=== PATIENT | male | born 1960 | race Hispanic/Latino ===

== ENCOUNTER 2021-12-28 19:55 | Inpatient (IN) | payer OTHER, SELFPAY ==
[2021-12-28 20:48] LABS: #Eosinphils 0.2 thou/uL (0.0-0.7); #Monocytes 0.8 thou/uL (0.11-0.59); %Basophils 0.6 % (0.0-1.0); %Eosinophils 3.8 % (0.0-10.0); %Lymphocytes 16.4 % (21.0-51.0); %Monocytes 13.5 % (0.0-10.0); %Neutrophils 65.7 % (42.0-75.0); Hemoglobin 5.1 g/dL (14.0-18.0); Mean Corpuscular HGB CONC 30.1 g/dL (32.0-36.0); Mean Corpuscular Hemoglobin 26.5 pg (27.0-31.0); Mean Corpuscular Volume 87.9 fL (78.0-98.0); Mean Platelet Volume 6.4 fL (7.4-10.4); Platelet Count 140 thou/uL (130-400); Red Blood Cell (RBC) Count 1.92 mill/uL (4.70-6.10); White Blood Cell (WBC) Count 6.1 thou/uL (4.8-10.8)
[2021-12-28 21:03] LABS: ALT (SGPT) 12 U/L (8-55); AST (SGOT) 18 U/L (5-34); Albumin 3.6 g/dL (3.4-4.8); Alkaline Phosphatase 85 U/L (40-110); Anion Gap 13 mmol/L (10-20); BUN (Urea Nitrogen) 49 mg/dL (8.4-25.7); Bilirubin, Total 0.6 mg/dL (0.2-1.2); Calc. Creatinine Clearance 0 mL/min (70-130); Calcium 8.4 mg/dL (7.8-10.44); Carbon Dioxide 19 mmol/L (23-31); Chloride 108 mmol/L (98-107); Globulin 3.6 g/dL (2.4-3.5); Glucose 118 mg/dL (80-115); Protein, Total 7.2 g/dL (5.8-8.1); Sodium 133 mmol/L (136-145)
[2021-12-28 21:13] LABS: Potassium 6.9 mmol/L (3.5-5.1)
[2021-12-28 21:56] LABS: Iron 20 ug/dL (65-175); Iron Binding Capacity, Total 451 mcg/dL (261-462)
[2021-12-28 21:57] LABS: INR-International Normal Ratio 2.6; PTT 44.5 sec (22.9-36.1); Prothrombin Time 28.3 sec (12.0-14.7)
[2021-12-28] MEDS ORDERED: Insulin Regular 300 UNITS/3 ML VIAL ONE ×2 (22:14→22:19)
[2021-12-28] MEDS ORDERED: Sodium Bicarb 50 MEQ/50 ML Abboject 8.4% SYRINGE ONE (22:14)
[2021-12-28] MEDS ORDERED: Calcium Chloride 1 GM/10 ML Abboject SYRINGE ONE (22:14)
[2021-12-28 22:24] LABS: Bacteria/HPF None Seen HPF (None Seen); Bilirubin Negative (Negative); Blood, Urine 2+ (Negative); Clarity Clear (Clear); Glucose, Urine (Dipstick) Normal (Negative); Ketone, Urine Negative (Negative); Leukocyte Negative Leu/uL (Negative); Nitrite Negative (Negative); Protein, Urine (Dipstick) Negative (Neg-Trace); RBC/HPF 0-3 HPF (0-3); Specific Gravity, Urine 1.009 (1.002-1.036); Squamous Epithelial None Seen HPF (0-3); Urobilinogen Normal mg/dL (Less than 2); WBC/HPF 0-3 HPF (0-3)
[2021-12-28] MEDS ORDERED: Dextrose 50% Abboject 50 ML SYRINGE SLOW IVP SCH (22:30)
[2021-12-28] MEDS ORDERED: Ondansetron PF 4 MG/2 ML Vial IVP PRN (22:45)
[2021-12-28] MEDS ORDERED: Ondansetron ODT 4 MG TAB SL PRN (22:45)
[2021-12-28] MEDS ORDERED: HumaLOG 300 UNITS/3 ML VIAL SC PRN (22:58)
[2021-12-28] MEDS ORDERED: Acetaminophen 325 MG TAB PO PRN (22:58)
[2021-12-28] MEDS ORDERED: Dextrose 5% in Water 1,000 ML IV PRN (22:58)
[2021-12-28] MEDS ORDERED: Dextrose 50% Abboject 50 ML SYRINGE SLOW IVP PRN (22:58)
[2021-12-28] MEDS ORDERED: Acetaminophen 650 MG Suppository PR PRN (22:58)
[2021-12-28] MEDS ORDERED: Furosemide 40 MG/4 ML VIAL SLOW IVP SCH (23:00)
[2021-12-29 00:12] VITALS: BMI 42.9
[2021-12-29] MEDS: Sodium Chloride 0.9% 1,000 ML IV SCH ×2 (00:29→11:02)
[2021-12-29] MEDS ORDERED: Pantoprazole 40 MG VIAL IVP SCH (02:00)
[2021-12-29] MEDS ORDERED: Furosemide 40 MG/4 ML VIAL SLOW IVP SCH ×3 (03:30→15:00)
[2021-12-29 05:17] LABS: #Eosinphils 0.1 thou/uL (0.0-0.7); #Monocytes 0.7 thou/uL (0.11-0.59); #Neutrophils 3.4 thou/uL (1.40-6.50); %Basophils 0.7 % (0.0-1.0); %Eosinophils 2.7 % (0.0-10.0); %Lymphocytes 18.3 % (21.0-51.0); %Monocytes 12.5 % (0.0-10.0); %Neutrophils 65.8 % (42.0-75.0); Hemoglobin 6.2 g/dL (14.0-18.0); Mean Corpuscular HGB CONC 30.7 g/dL (32.0-36.0); Mean Corpuscular Hemoglobin 27.8 pg (27.0-31.0); Mean Corpuscular Volume 90.5 fL (78.0-98.0); Mean Platelet Volume 6.1 fL (7.4-10.4); Platelet Count 129 thou/uL (130-400); RBC Distribution Width 16.9 % (11.5-14.5); Red Blood Cell (RBC) Count 2.24 mill/uL (4.70-6.10); White Blood Cell (WBC) Count 5.2 thou/uL (4.8-10.8)
[2021-12-29 05:39] LABS: Anion Gap 12 mmol/L (10-20); BUN (Urea Nitrogen) 44 mg/dL (8.4-25.7); Calc. Creatinine Clearance 82 mL/min (70-130); Calcium 9.3 mg/dL (7.8-10.44); Carbon Dioxide 21 mmol/L (23-31); Chloride 108 mmol/L (98-107); Glucose 121 mg/dL (80-115); Magnesium 2.2 mg/dL (1.6-2.6); Potassium 5.9 mmol/L (3.5-5.1); Sodium 135 mmol/L (136-145)
[2021-12-29 09:30] LABS: Hemoglobin 5.9 g/dL (14.0-18.0)
[2021-12-29 09:48] LABS: Reticulocyte Count 6.2 % (0.5-1.5)
[2021-12-29] MEDS ORDERED: Sodium Bicarbonate 150 MEQ in Dextrose 5% in Water 1,000 ML IV SCH ×3 (10:00→15:00)
[2021-12-29] MEDS: Pantoprazole 40 MG VIAL IVP SCH ×2 (10:06→21:18)
[2021-12-29 12:07] LABS: Glucose 122 mg/dL (80-115)
[2021-12-29] MEDS ORDERED: LOKELMA 10 GM PACKET PO SCH (15:00)
[2021-12-29 15:24] LABS: Hemoglobin 6.9 g/dL (14.0-18.0)
[2021-12-29 15:50] LABS: Troponin I 0.011 ng/mL (< 0.028)
[2021-12-29] MEDS ORDERED: Metoprolol Tartrate 5 MG/5 ML VIAL IVP PRN (20:16)
[2021-12-29 20:41] LABS: Glucose 261 mg/dL (80-115)
[2021-12-29 21:04] LABS: Anion Gap 14 mmol/L (10-20); BUN (Urea Nitrogen) 34 mg/dL (8.4-25.7); Calc. Creatinine Clearance 83 mL/min (70-130); Calcium 9.2 mg/dL (7.8-10.44); Carbon Dioxide 24 mmol/L (23-31); Chloride 104 mmol/L (98-107); Glucose 264 mg/dL (80-115); Potassium 4.7 mmol/L (3.5-5.1); Sodium 137 mmol/L (136-145)
[2021-12-30 04:55] LABS: #Eosinphils 0.1 thou/uL (0.0-0.7); #Lymphocytes 0.7 thou/uL (1.20-3.40); #Monocytes 0.8 thou/uL (0.11-0.59); #Neutrophils 3.8 thou/uL (1.40-6.50); %Basophils 0.6 % (0.0-1.0); %Eosinophils 2.2 % (0.0-10.0); %Lymphocytes 12.7 % (21.0-51.0); %Monocytes 14.1 % (0.0-10.0); %Neutrophils 70.4 % (42.0-75.0); Hemoglobin 7.5 g/dL (14.0-18.0); Mean Corpuscular HGB CONC 32.2 g/dL (32.0-36.0); Mean Corpuscular Hemoglobin 29.4 pg (27.0-31.0); Mean Corpuscular Volume 91.2 fL (78.0-98.0); Mean Platelet Volume 6.7 fL (7.4-10.4); Platelet Count 122 thou/uL (130-400); RBC Distribution Width 16.8 % (11.5-14.5); Red Blood Cell (RBC) Count 2.56 mill/uL (4.70-6.10); White Blood Cell (WBC) Count 5.4 thou/uL (4.8-10.8)
[2021-12-30 04:58] LABS: INR-International Normal Ratio 1.2; Prothrombin Time 15.7 sec (12.0-14.7)
[2021-12-30 05:22] LABS: ALT (SGPT) 11 U/L (8-55); AST (SGOT) 16 U/L (5-34); Albumin 3.2 g/dL (3.4-4.8); Alkaline Phosphatase 71 U/L (40-110); Anion Gap 13 mmol/L (10-20); BUN (Urea Nitrogen) 32 mg/dL (8.4-25.7); Bilirubin, Total 1.6 mg/dL (0.2-1.2); Calc. Creatinine Clearance 97 mL/min (70-130); Calcium 8.7 mg/dL (7.8-10.44); Carbon Dioxide 25 mmol/L (23-31); Chloride 105 mmol/L (98-107); Globulin 3.2 g/dL (2.4-3.5); Glucose 133 mg/dL (80-115); Magnesium 1.7 mg/dL (1.6-2.6); Potassium 4.4 mmol/L (3.5-5.1); Protein, Total 6.4 g/dL (5.8-8.1); Sodium 139 mmol/L (136-145)
[2021-12-30] MEDS: Furosemide 40 MG/4 ML VIAL SLOW IVP SCH ×2 (06:04→15:07)
[2021-12-30] MEDS ORDERED: Electrolyte Replacement Protocol 1 EACH FS SCH (08:45)
[2021-12-30] MEDS ORDERED: Electrolyte Replacement Protocol FS PRN (08:45)
[2021-12-30] MEDS ORDERED: Metoprolol Tartrate 25 MG TAB PO SCH (09:00)
[2021-12-30] MEDS ORDERED: Pantoprazole 40 MG VIAL IVP SCH (09:00)
[2021-12-30] MEDS: Multivit, Therapeutic 1 TAB PO SCH (10:15)
[2021-12-30] MEDS: Pantoprazole 40 MG VIAL IVP SCH ×2 (10:15→21:04)
[2021-12-30] MEDS: Metoprolol Tartrate 50 MG TAB PO SCH ×2 (10:15→21:04)
[2021-12-30] MEDS: Folic Acid 1 MG TAB PO SCH (10:15)
[2021-12-30] MEDS: pyridOXINE 50 MG (B6) TAB PO SCH (10:15)
[2021-12-30] MEDS: Thiamine 100 MG TAB PO SCH (10:16)
[2021-12-30] MEDS ORDERED: Magnesium 2 GM/50 ML(in water) 2 GM in Premix Bag 1 BAG IVPB SCH (11:00)
[2021-12-30] MEDS: HumaLOG 300 UNITS/3 ML VIAL SC PRN (15:11)
[2021-12-30 16:55] LABS: Hemoglobin 8.1 g/dL (14.0-18.0)
[2021-12-30] MEDS ORDERED: Diltiazem 125 MG in Sodium Chloride 0.9% 100 ML IVPB SCH (18:30)
[2021-12-31 05:44] LABS: #Eosinphils 0.2 thou/uL (0.0-0.7); #Lymphocytes 0.8 thou/uL (1.20-3.40); #Monocytes 0.7 thou/uL (0.11-0.59); #Neutrophils 3.3 thou/uL (1.40-6.50); %Basophils 0.3 % (0.0-1.0); %Eosinophils 3.6 % (0.0-10.0); %Monocytes 13.4 % (0.0-10.0); %Neutrophils 65.8 % (42.0-75.0); Hemoglobin 7.9 g/dL (14.0-18.0); Mean Corpuscular HGB CONC 31.6 g/dL (32.0-36.0); Mean Corpuscular Hemoglobin 29.2 pg (27.0-31.0); Mean Corpuscular Volume 92.5 fL (78.0-98.0); Mean Platelet Volume 6.8 fL (7.4-10.4); Platelet Count 110 thou/uL (130-400); RBC Distribution Width 16.8 % (11.5-14.5); Red Blood Cell (RBC) Count 2.71 mill/uL (4.70-6.10); White Blood Cell (WBC) Count 4.9 thou/uL (4.8-10.8)
[2021-12-31 05:50] LABS: ALT (SGPT) 12 U/L (8-55); AST (SGOT) 16 U/L (5-34); Albumin 3.3 g/dL (3.4-4.8); Alkaline Phosphatase 72 U/L (40-110); Anion Gap 12 mmol/L (10-20); BUN (Urea Nitrogen) 22 mg/dL (8.4-25.7); Bilirubin, Total 1.3 mg/dL (0.2-1.2); Calc. Creatinine Clearance 109 mL/min (70-130); Calcium 9.4 mg/dL (7.8-10.44); Carbon Dioxide 30 mmol/L (23-31); Chloride 104 mmol/L (98-107); Globulin 3.3 g/dL (2.4-3.5); Glucose 139 mg/dL (80-115); Magnesium 1.8 mg/dL (1.6-2.6); Phosphorus 4.1 mg/dL (2.3-4.7); Potassium 3.9 mmol/L (3.5-5.1); Protein, Total 6.6 g/dL (5.8-8.1); Sodium 142 mmol/L (136-145)
[2021-12-31] MEDS ORDERED: Magnesium 2 GM/50 ML(in water) 2 GM in Premix Bag 1 BAG IVPB SCH (08:00)
[2021-12-31] MEDS ORDERED: Furosemide 40 MG/4 ML VIAL SLOW IVP SCH (09:00)
[2021-12-31] MEDS: Multivit, Therapeutic 1 TAB PO SCH (09:12)
[2021-12-31] MEDS: Pantoprazole 40 MG VIAL IVP SCH ×2 (09:12→21:09)
[2021-12-31] MEDS: pyridOXINE 50 MG (B6) TAB PO SCH (09:12)
[2021-12-31] MEDS: Folic Acid 1 MG TAB PO SCH (09:12)
[2021-12-31] MEDS: Metoprolol Tartrate 50 MG TAB PO SCH ×2 (09:12→21:09)
[2021-12-31] MEDS: Thiamine 100 MG TAB PO SCH (09:13)
[2021-12-31] MEDS ORDERED: Senokot S 8.6-50 MG TAB PO SCH (09:45)
[2021-12-31] MEDS ORDERED: Polyethylene Glycol 3350 17 GM Packet PO SCH (09:45)
[2021-12-31] MEDS: HumaLOG 300 UNITS/3 ML VIAL SC PRN ×2 (11:25→18:22)
[2021-12-31] MEDS: Senokot S 8.6-50 MG TAB PO SCH (21:09)
[2022-01-01 05:02] LABS: #Eosinphils 0.2 thou/uL (0.0-0.7); #Lymphocytes 1.1 thou/uL (1.20-3.40); #Monocytes 0.7 thou/uL (0.11-0.59); #Neutrophils 6.2 thou/uL (1.40-6.50); %Basophils 0.3 % (0.0-1.0); %Eosinophils 2.4 % (0.0-10.0); %Lymphocytes 13.2 % (21.0-51.0); %Monocytes 8.7 % (0.0-10.0); %Neutrophils 75.4 % (42.0-75.0); Hemoglobin 7.8 g/dL (14.0-18.0); Mean Corpuscular HGB CONC 30.8 g/dL (32.0-36.0); Mean Corpuscular Hemoglobin 28.2 pg (27.0-31.0); Mean Corpuscular Volume 91.6 fL (78.0-98.0); Mean Platelet Volume 6.7 fL (7.4-10.4); Platelet Count 114 thou/uL (130-400); RBC Distribution Width 16.3 % (11.5-14.5); Red Blood Cell (RBC) Count 2.75 mill/uL (4.70-6.10); White Blood Cell (WBC) Count 8.3 thou/uL (4.8-10.8)
[2022-01-01 05:15] LABS: ALT (SGPT) 11 U/L (8-55); AST (SGOT) 24 U/L (5-34); Albumin 3.3 g/dL (3.4-4.8); Alkaline Phosphatase 64 U/L (40-110); Anion Gap 13 mmol/L (10-20); BUN (Urea Nitrogen) 26 mg/dL (8.4-25.7); Bilirubin, Total 1.5 mg/dL (0.2-1.2); Calc. Creatinine Clearance 82 mL/min (70-130); Calcium 8.8 mg/dL (7.8-10.44); Carbon Dioxide 29 mmol/L (23-31); Chloride 103 mmol/L (98-107); Globulin 3.4 g/dL (2.4-3.5); Glucose 134 mg/dL (80-115); Magnesium 2.1 mg/dL (1.6-2.6); Potassium 3.9 mmol/L (3.5-5.1); Protein, Total 6.7 g/dL (5.8-8.1); Sodium 141 mmol/L (136-145)
[2022-01-01] MEDS: pyridOXINE 50 MG (B6) TAB PO SCH (08:34)
[2022-01-01] MEDS: Metoprolol Tartrate 50 MG TAB PO SCH ×2 (08:34→21:01)
[2022-01-01] MEDS: Senokot S 8.6-50 MG TAB PO SCH ×2 (08:34→21:01)
[2022-01-01] MEDS: Thiamine 100 MG TAB PO SCH (08:34)
[2022-01-01] MEDS: Multivit, Therapeutic 1 TAB PO SCH (08:34)
[2022-01-01] MEDS: Folic Acid 1 MG TAB PO SCH (08:34)
[2022-01-01] MEDS: Pantoprazole 40 MG VIAL IVP SCH ×2 (08:35→21:00)
[2022-01-01] MEDS: Polyethylene Glycol 3350 17 GM Packet PO SCH (08:35)
[2022-01-01] MEDS: HumaLOG 300 UNITS/3 ML VIAL SC PRN (11:50)
[2022-01-01 14:14] LABS: Anion Gap 14 mmol/L (10-20); BUN (Urea Nitrogen) 28 mg/dL (8.4-25.7); Calc. Creatinine Clearance 71 mL/min (70-130); Calcium 8.7 mg/dL (7.8-10.44); Carbon Dioxide 28 mmol/L (23-31); Chloride 100 mmol/L (98-107); Glucose 227 mg/dL (80-115); Potassium 3.7 mmol/L (3.5-5.1); Sodium 138 mmol/L (136-145)
[2022-01-01] MEDS ORDERED: GoLYTELY 4,000 ml Bottle PO SCH (18:00)
[2022-01-01] MEDS ORDERED: Ondansetron PF 4 MG/2 ML Vial IVP PRN (23:36)
[2022-01-01] MEDS ORDERED: Ondansetron ODT 4 MG TAB PO PRN (23:36)
[2022-01-02 04:59] LABS: #Eosinphils 0.2 thou/uL (0.0-0.7); #Lymphocytes 0.6 thou/uL (1.20-3.40); #Monocytes 0.6 thou/uL (0.11-0.59); #Neutrophils 6.9 thou/uL (1.40-6.50); %Basophils 0.2 % (0.0-1.0); %Eosinophils 2.3 % (0.0-10.0); %Lymphocytes 6.8 % (21.0-51.0); %Monocytes 6.8 % (0.0-10.0); %Neutrophils 83.8 % (42.0-75.0); Mean Corpuscular Hemoglobin 28.2 pg (27.0-31.0); Mean Corpuscular Volume 90.8 fL (78.0-98.0); Mean Platelet Volume 6.9 fL (7.4-10.4); Platelet Count 90 thou/uL (130-400); RBC Distribution Width 16.3 % (11.5-14.5); Red Blood Cell (RBC) Count 2.83 mill/uL (4.70-6.10); White Blood Cell (WBC) Count 8.2 thou/uL (4.8-10.8)
[2022-01-02 05:21] LABS: ALT (SGPT) 11 U/L (8-55); AST (SGOT) 16 U/L (5-34); Albumin 3.3 g/dL (3.4-4.8); Alkaline Phosphatase 61 U/L (40-110); Anion Gap 13 mmol/L (10-20); BUN (Urea Nitrogen) 30 mg/dL (8.4-25.7); Bilirubin, Total 1.3 mg/dL (0.2-1.2); Calc. Creatinine Clearance 72 mL/min (70-130); Calcium 8.5 mg/dL (7.8-10.44); Carbon Dioxide 29 mmol/L (23-31); Chloride 100 mmol/L (98-107); Globulin 3.3 g/dL (2.4-3.5); Glucose 163 mg/dL (80-115); Magnesium 2.1 mg/dL (1.6-2.6); Potassium 3.8 mmol/L (3.5-5.1); Protein, Total 6.6 g/dL (5.8-8.1); Sodium 138 mmol/L (136-145)
[2022-01-02 05:38] LABS: HBCM Index 0.06 S/CO (0-0.79); HBSAB Concentration Less than 8.00 mIU/mL; HBSAg Index 0.32 S/CO (0-0.99); Hep A IgM AB Non-Reactive (NonReactive); Hep A IgM S/CO 0.25 S/CO (0-0.79); Hep B Surf AB Non-Reactive (NonReactive); Hep B Surf Ag Non-Reactive S/CO (NonReactive); Hep C IgG Ab Non-Reactive (NonReactive); Hep C Index 0.14 S/CO (0-0.79); Hepatitis B Core IgM Abs Non-Reactive (NonReactive)
[2022-01-02] MEDS: Pantoprazole 40 MG VIAL IVP SCH ×2 (10:22→20:26)
[2022-01-02] MEDS: Metoprolol Tartrate 50 MG TAB PO SCH ×2 (10:22→20:25)
[2022-01-02] MEDS: Senokot S 8.6-50 MG TAB PO SCH (11:00)
[2022-01-02] MEDS: Polyethylene Glycol 3350 17 GM Packet PO SCH (11:26)
[2022-01-02 12:21] LABS: ANA Symphony (Qualitative) Negative (Negative); ANA Symphony (Quantitative) 0.4 Ratio (< 0.7 Negative); EliA Vaculitis New Method **** NEW METHOD ****; Mitochondrial Ab 1.8 U/mL (<4 Negative); dsDNA IgG Antibody 7.6 IU/mL (<10 Negative)
[2022-01-02] MEDS: Multivit, Therapeutic 1 TAB PO SCH (12:58)
[2022-01-02] MEDS: pyridOXINE 50 MG (B6) TAB PO SCH (12:59)
[2022-01-02] MEDS: Thiamine 100 MG TAB PO SCH (12:59)
[2022-01-02] MEDS: Folic Acid 1 MG TAB PO SCH (12:59)
[2022-01-02] MEDS ORDERED: Polyethylene Glycol 3350 17 GM Packet PO SCH (13:15)
[2022-01-02] MEDS: GoLYTELY 4,000 ml Bottle PO SCH (20:24)
[2022-01-03] MEDS: GoLYTELY 4,000 ml Bottle PO SCH (01:52)
[2022-01-03 05:04] LABS: #Eosinphils 0.4 thou/uL (0.0-0.7); #Monocytes 0.7 thou/uL (0.11-0.59); #Neutrophils 3.9 thou/uL (1.40-6.50); %Basophils 0.5 % (0.0-1.0); %Eosinophils 6.5 % (0.0-10.0); %Lymphocytes 16.4 % (21.0-51.0); %Monocytes 11.9 % (0.0-10.0); %Neutrophils 64.7 % (42.0-75.0); Mean Corpuscular HGB CONC 30.8 g/dL (32.0-36.0); Mean Corpuscular Hemoglobin 28.1 pg (27.0-31.0); Mean Corpuscular Volume 91.2 fL (78.0-98.0); Mean Platelet Volume 7.1 fL (7.4-10.4); Platelet Count 119 thou/uL (130-400); RBC Distribution Width 16.4 % (11.5-14.5)
[2022-01-03 05:16] LABS: Anion Gap 15 mmol/L (10-20); BUN (Urea Nitrogen) 29 mg/dL (8.4-25.7); Calc. Creatinine Clearance 80 mL/min (70-130); Carbon Dioxide 29 mmol/L (23-31); Chloride 99 mmol/L (98-107); Glucose 143 mg/dL (80-115); Potassium 3.7 mmol/L (3.5-5.1); Sodium 139 mmol/L (136-145)
[2022-01-03] MEDS ORDERED: Ketamine 50 MG/ML (10ML VIAL) ONE (10:55)
[2022-01-03] MEDS ORDERED: PROPOFOL 200 MG/20 ML VIAL ONE (11:13)
[2022-01-03] MEDS: pyridOXINE 50 MG (B6) TAB PO SCH (12:55)
[2022-01-03] MEDS: Folic Acid 1 MG TAB PO SCH (12:55)
[2022-01-03] MEDS: Thiamine 100 MG TAB PO SCH (12:55)
[2022-01-03] MEDS: Metoprolol Tartrate 50 MG TAB PO SCH ×2 (12:55→22:12)
[2022-01-03] MEDS: Multivit, Therapeutic 1 TAB PO SCH (12:55)
[2022-01-03] MEDS: Pantoprazole 40 MG VIAL IVP SCH (13:32)
[2022-01-03] MEDS: Famotidine 20 MG TAB PO SCH (22:12)
[2022-01-04 05:18] LABS: #Eosinphils 0.3 thou/uL (0.0-0.7); #Lymphocytes 0.8 thou/uL (1.20-3.40); #Monocytes 0.7 thou/uL (0.11-0.59); #Neutrophils 2.7 thou/uL (1.40-6.50); %Basophils 0.6 % (0.0-1.0); %Eosinophils 6.2 % (0.0-10.0); %Lymphocytes 18.3 % (21.0-51.0); %Monocytes 14.8 % (0.0-10.0); %Neutrophils 60.2 % (42.0-75.0); Hemoglobin 7.6 g/dL (14.0-18.0); Mean Corpuscular Volume 90.1 fL (78.0-98.0); Mean Platelet Volume 7.4 fL (7.4-10.4); Platelet Count 103 thou/uL (130-400); RBC Distribution Width 16.3 % (11.5-14.5); Red Blood Cell (RBC) Count 2.72 mill/uL (4.70-6.10); White Blood Cell (WBC) Count 4.4 thou/uL (4.8-10.8)
[2022-01-04 05:26] LABS: Anion Gap 15 mmol/L (10-20); BUN (Urea Nitrogen) 28 mg/dL (8.4-25.7); Calc. Creatinine Clearance 93 mL/min (70-130); Calcium 8.3 mg/dL (7.8-10.44); Carbon Dioxide 27 mmol/L (23-31); Chloride 100 mmol/L (98-107); Glucose 114 mg/dL (80-115); Potassium 3.6 mmol/L (3.5-5.1); Sodium 138 mmol/L (136-145)
[2022-01-04] MEDS: pyridOXINE 50 MG (B6) TAB PO SCH (09:29)
[2022-01-04] MEDS: Famotidine 20 MG TAB PO SCH ×2 (09:29→21:33)
[2022-01-04] MEDS: Iron Polysaccharides Complex 150 MG CAP PO SCH (09:29)
[2022-01-04] MEDS: Folic Acid 1 MG TAB PO SCH (09:29)
[2022-01-04] MEDS: Multivit, Therapeutic 1 TAB PO SCH (09:29)
[2022-01-04] MEDS: Thiamine 100 MG TAB PO SCH (09:29)
[2022-01-04] MEDS: Metoprolol Tartrate 50 MG TAB PO SCH ×2 (09:30→21:33)
[2022-01-04] MEDS: HumaLOG 300 UNITS/3 ML VIAL SC PRN (11:11)
[2022-01-04 14:23] LABS: Hemoglobin 7.9 g/dL (14.0-18.0); Platelet Count 111 thou/uL (130-400)
[2022-01-04] MEDS: metFORMIN 850 MG TAB PO SCH (17:29)
[2022-01-04] MEDS ORDERED: Rivaroxaban 10 MG TAB PO SCH (18:00)
[2022-01-05] MEDS: Famotidine 20 MG TAB PO SCH (07:57)
[2022-01-05] MEDS: Iron Polysaccharides Complex 150 MG CAP PO SCH (07:57)
[2022-01-05] MEDS: metFORMIN 850 MG TAB PO SCH (07:57)
[2022-01-05] MEDS: Folic Acid 1 MG TAB PO SCH (07:58)
[2022-01-05] MEDS: Metoprolol Tartrate 50 MG TAB PO SCH (07:58)
[2022-01-05] MEDS: Thiamine 100 MG TAB PO SCH (07:58)
[2022-01-05] MEDS: Multivit, Therapeutic 1 TAB PO SCH (07:58)
[2022-01-05] MEDS: pyridOXINE 50 MG (B6) TAB PO SCH (07:58)
[2022-01-05 08:34] LABS: #Eosinphils 0.2 thou/uL (0.0-0.7); #Lymphocytes 0.8 thou/uL (1.20-3.40); #Monocytes 0.5 thou/uL (0.11-0.59); #Neutrophils 2.8 thou/uL (1.40-6.50); %Basophils 0.9 % (0.0-1.0); %Eosinophils 4.9 % (0.0-10.0); %Lymphocytes 18.1 % (21.0-51.0); %Monocytes 11.9 % (0.0-10.0); %Neutrophils 64.3 % (42.0-75.0); Hemoglobin 8.3 g/dL (14.0-18.0); Mean Corpuscular HGB CONC 30.8 g/dL (32.0-36.0); Mean Corpuscular Hemoglobin 27.9 pg (27.0-31.0); Mean Corpuscular Volume 90.5 fL (78.0-98.0); Mean Platelet Volume 7.3 fL (7.4-10.4); Platelet Count 113 thou/uL (130-400); RBC Distribution Width 16.4 % (11.5-14.5); Red Blood Cell (RBC) Count 2.99 mill/uL (4.70-6.10); White Blood Cell (WBC) Count 4.4 thou/uL (4.8-10.8)
[2022-01-05 08:42] LABS: Anion Gap 13 mmol/L (10-20); BUN (Urea Nitrogen) 24 mg/dL (8.4-25.7); Calc. Creatinine Clearance 104 mL/min (70-130); Calcium 8.8 mg/dL (7.8-10.44); Carbon Dioxide 28 mmol/L (23-31); Chloride 100 mmol/L (98-107); Glucose 119 mg/dL (80-115); Magnesium 2.5 mg/dL (1.6-2.6); Potassium 3.5 mmol/L (3.5-5.1); Sodium 137 mmol/L (136-145)
[2022-01-05] MEDS ORDERED: Potassium Chloride 20 MEQ TAB PO SCH (10:00)
[2022-01-05 13:06] VITALS: BP 109/67; TEMP 98
[2022-01-06 14:09] LABS: Smooth Muscle Total ABS 12 Units (0-19)
[2022-01-08] MEDS ORDERED: Furosemide 40 MG TAB PO SCH (07:30)
== END 2022-01-05 13:15 | disposition home or self-care (01) | DRG 811 ==
LOC: ERS 19:55 → 2NO 22:24
PROVIDERS: ADMIT Internal Medicine; ATTEND Internal Medicine
PROC: 30233N1 Transfusion of Nonautologous Red Blood Cells into Peripheral Vein, Percutaneous Approach (ICD-10-PCS; principal; 2021-12-29)
PROC: 0DJ08ZZ Inspection of Upper Intestinal Tract, Via Natural or Artificial Opening Endoscopic (ICD-10-PCS; 2022-01-03)
PROC: 0DJD8ZZ Inspection of Lower Intestinal Tract, Via Natural or Artificial Opening Endoscopic (ICD-10-PCS; 2022-01-03)
DX: D62 Acute posthemorrhagic anemia (principal); I50.33 Acute on chronic diastolic (congestive) heart failure; K92.2 Gastrointestinal hemorrhage, unspecified; N17.9 Acute kidney failure, unspecified; K76.6 Portal hypertension; E87.1 Hypo-osmolality and hyponatremia; E87.2 Acidosis; I13.0 Hypertensive heart and chronic kidney disease with heart failure and stage 1 through stage 4 chronic kidney disease, or unspecified chronic kidney disease; Z68.41 Body mass index [BMI] 40.0-44.9, adult; I48.11 Longstanding persistent atrial fibrillation; Z20.822 Contact with and (suspected) exposure to COVID-19; K31.89 Other diseases of stomach and duodenum; E87.5 Hyperkalemia; K57.30 Diverticulosis of large intestine without perforation or abscess without bleeding; I25.10 Atherosclerotic heart disease of native coronary artery without angina pectoris; E83.42 Hypomagnesemia; K74.69 Other cirrhosis of liver; D69.6 Thrombocytopenia, unspecified; F10.20 Alcohol dependence, uncomplicated; E66.01 Morbid (severe) obesity due to excess calories; R04.0 Epistaxis; N18.30 Chronic kidney disease, stage 3 unspecified; E11.22 Type 2 diabetes mellitus with diabetic chronic kidney disease; R74.8 Abnormal levels of other serum enzymes; I08.1 Rheumatic disorders of both mitral and tricuspid valves; K74.60 Unspecified cirrhosis of liver; Z28.21 Immunization not carried out because of patient refusal; Z79.899 Other long term (current) drug therapy; Z79.01 Long term (current) use of anticoagulants; Z79.84 Long term (current) use of oral hypoglycemic drugs
CPT/HCPCS: 36415; 36416; 36430; 71045; 76700; 80048; 80053; 80074; 81015; 82105; 82274; 82390; 82728; 83516; 83540; 83550; 83735; 83880; 84100; 84443; 84484; 85025; 85046; 85610; 85730; 86015; 86038; 86225; 86706; 86708; 86850; 86900; 86901; 93005; 93306; 93798; 96374; 96375; 97139; C9113; J1815; J1940; J2405; J3475; J7050; J7070; J7999; P9016; U0003; U0005

== ENCOUNTER 2022-01-25 13:11 | Inpatient (IN) | payer OTHER ==
[2022-01-25 13:38] LABS: #Eosinphils 0.2 thou/uL (0.0-0.7); #Monocytes 0.7 thou/uL (0.11-0.59); #Neutrophils 4.9 thou/uL (1.40-6.50); %Basophils 0.6 % (0.0-1.0); %Eosinophils 2.3 % (0.0-10.0); %Lymphocytes 14.1 % (21.0-51.0); %Monocytes 10.8 % (0.0-10.0); %Neutrophils 72.2 % (42.0-75.0); Hemoglobin 7.9 g/dL (14.0-18.0); Mean Corpuscular HGB CONC 30.4 g/dL (32.0-36.0); Mean Corpuscular Hemoglobin 26.4 pg (27.0-31.0); Mean Corpuscular Volume 86.8 fL (78.0-98.0); Mean Platelet Volume 7.1 fL (7.4-10.4); Platelet Count 146 thou/uL (130-400); RBC Distribution Width 18.3 % (11.5-14.5); Red Blood Cell (RBC) Count 2.99 mill/uL (4.70-6.10); White Blood Cell (WBC) Count 6.8 thou/uL (4.8-10.8)
[2022-01-25 14:06] LABS: ALT (SGPT) 10 U/L (8-55); AST (SGOT) 17 U/L (5-34); Albumin 3.5 g/dL (3.4-4.8); Alkaline Phosphatase 117 U/L (40-110); Anion Gap 15 mmol/L (10-20); BUN (Urea Nitrogen) 23 mg/dL (8.4-25.7); Bilirubin, Total 0.7 mg/dL (0.2-1.2); Calc. Creatinine Clearance 0 mL/min (70-130); Calcium 8.7 mg/dL (7.8-10.44); Carbon Dioxide 22 mmol/L (23-31); Chloride 106 mmol/L (98-107); Estimated GFR 56; Globulin 3.5 g/dL (2.4-3.5); Glucose 154 mg/dL (80-115); Potassium 4.8 mmol/L (3.5-5.1); Sodium 138 mmol/L (136-145)
[2022-01-25] MEDS ORDERED: Vancomycin 1 GM/200 ML BAG ONE (16:09)
[2022-01-25 16:25] LABS: Bacteria/HPF None Seen HPF (None Seen); Bilirubin Negative (Negative); Blood, Urine 3+ (Negative); Clarity Clear (Clear); Glucose, Urine (Dipstick) Normal (Negative); Ketone, Urine Negative (Negative); Leukocyte Negative Leu/uL (Negative); Nitrite Negative (Negative); Protein, Urine (Dipstick) 20 mg/dL (Neg-Trace); RBC/HPF Greater than 50 HPF (0-3); Specific Gravity, Urine 1.018 (1.002-1.036); Squamous Epithelial 0-3 HPF (0-3); Urobilinogen Normal mg/dL (Less than 2); WBC/HPF 0-3 HPF (0-3); pH, Urine 5.5 (5.0-9.0)
[2022-01-25] MEDS ORDERED: Acetaminophen 325 MG TAB PO PRN (17:34)
[2022-01-25] MEDS ORDERED: Cefepime 1 GM VIAL ONE (18:06)
[2022-01-25] MEDS ORDERED: Dextrose 5% in Water 1,000 ML IV PRN (18:56)
[2022-01-25] MEDS ORDERED: HumaLOG 300 UNITS/3 ML VIAL SC PRN (18:56)
[2022-01-25] MEDS ORDERED: Dextrose 50% Abboject 50 ML SYRINGE SLOW IVP PRN (18:56)
[2022-01-25 20:12] VITALS: BMI 46.5
[2022-01-25] MEDS: Rivaroxaban 10 MG TAB PO SCH (20:57)
[2022-01-26] MEDS ORDERED: Sodium Chloride 0.9% 500 ML IV SCH (04:30)
[2022-01-26] MEDS ORDERED: Metoprolol Tartrate 25 MG TAB PO SCH (05:17)
[2022-01-26] MEDS ORDERED: Metoprolol Tartrate 5 MG/5 ML VIAL IVP PRN (05:18)
[2022-01-26 05:58] LABS: #Eosinphils 0.1 thou/uL (0.0-0.7); #Lymphocytes 0.6 thou/uL (1.20-3.40); #Monocytes 0.6 thou/uL (0.11-0.59); %Basophils 0.3 % (0.0-1.0); %Eosinophils 1.5 % (0.0-10.0); %Lymphocytes 9.8 % (21.0-51.0); %Monocytes 9.4 % (0.0-10.0); Hemoglobin 7.5 g/dL (14.0-18.0); Mean Corpuscular HGB CONC 31.9 g/dL (32.0-36.0); Mean Corpuscular Hemoglobin 27.3 pg (27.0-31.0); Mean Corpuscular Volume 85.7 fL (78.0-98.0); Platelet Count 130 thou/uL (130-400); RBC Distribution Width 18.4 % (11.5-14.5); Red Blood Cell (RBC) Count 2.76 mill/uL (4.70-6.10); White Blood Cell (WBC) Count 6.3 thou/uL (4.8-10.8)
[2022-01-26] MEDS ORDERED: cefTRIAXone\\ROCEPHIN 1 GM in Sodium Chloride 0.9% 100 ML IVPB SCH (06:00)
[2022-01-26 06:25] LABS: Troponin I 0.013 ng/mL (< 0.028)
[2022-01-26 06:29] LABS: Magnesium 2.1 mg/dL (1.6-2.6)
[2022-01-26 06:31] LABS: Anion Gap 11 mmol/L (10-20); BUN (Urea Nitrogen) 17 mg/dL (8.4-25.7); Calc. Creatinine Clearance 152 mL/min (70-130); Calcium 8.5 mg/dL (7.8-10.44); Carbon Dioxide 23 mmol/L (23-31); Chloride 108 mmol/L (98-107); Estimated GFR 86; Glucose 121 mg/dL (80-115); Potassium 4.3 mmol/L (3.5-5.1); Sodium 138 mmol/L (136-145)
[2022-01-26] MEDS ORDERED: Prevnar 13-Val Conj/PF 0.5 ML SYRINGE IM ONE (09:00)
[2022-01-26] MEDS: Iron Polysaccharides Complex 150 MG CAP PO SCH (09:56)
[2022-01-26] MEDS: Folic Acid 1 MG TAB PO SCH (09:57)
[2022-01-26] MEDS: metFORMIN 850 MG TAB PO SCH ×2 (09:57→16:42)
[2022-01-26] MEDS ORDERED: SODIUM CHLORIDE 0.9% IVPB SCH (11:00)
[2022-01-26] MEDS ORDERED: D5W 1 GM IVPB SCH (11:00)
[2022-01-26] MEDS ORDERED: CEFAZOLIN IVPB SCH (11:00)
[2022-01-26] MEDS: CEFAZOLIN 1 GM in Sodium Chloride 0.9% 100 ML IVPB SCH ×2 (11:44→20:42)
[2022-01-26] MEDS ORDERED: Furosemide 40 MG/4 ML VIAL SLOW IVP SCH (14:45)
[2022-01-26] MEDS ORDERED: diphenhydrAMINE 25 MG CAP PO PRN (18:33)
[2022-01-26] MEDS: Rivaroxaban 10 MG TAB PO SCH (20:43)
[2022-01-27 04:44] LABS: #Eosinphils 0.2 thou/uL (0.0-0.7); #Lymphocytes 0.8 thou/uL (1.20-3.40); #Monocytes 0.7 thou/uL (0.11-0.59); %Basophils 0.5 % (0.0-1.0); %Eosinophils 3.7 % (0.0-10.0); %Lymphocytes 14.2 % (21.0-51.0); %Monocytes 11.7 % (0.0-10.0); Hemoglobin 7.8 g/dL (14.0-18.0); Mean Corpuscular HGB CONC 30.5 g/dL (32.0-36.0); Mean Corpuscular Hemoglobin 26.2 pg (27.0-31.0); Mean Platelet Volume 6.9 fL (7.4-10.4); Platelet Count 138 thou/uL (130-400); RBC Distribution Width 18.1 % (11.5-14.5); Red Blood Cell (RBC) Count 2.97 mill/uL (4.70-6.10); White Blood Cell (WBC) Count 5.7 thou/uL (4.8-10.8)
[2022-01-27] MEDS: CEFAZOLIN 1 GM in Sodium Chloride 0.9% 100 ML IVPB SCH ×3 (04:58→20:52)
[2022-01-27 05:10] LABS: Anion Gap 12 mmol/L (10-20); BUN (Urea Nitrogen) 14 mg/dL (8.4-25.7); Calc. Creatinine Clearance 120 mL/min (70-130); Calcium 8.8 mg/dL (7.8-10.44); Carbon Dioxide 24 mmol/L (23-31); Chloride 108 mmol/L (98-107); Estimated GFR 80; Glucose 124 mg/dL (80-115); Magnesium 1.9 mg/dL (1.6-2.6); Sodium 140 mmol/L (136-145)
[2022-01-27] MEDS ORDERED: Magnesium 2 GM/50 ML(in water) 2 GM in Premix Bag 1 BAG IVPB SCH (07:45)
[2022-01-27] MEDS: Iron Polysaccharides Complex 150 MG CAP PO SCH (08:37)
[2022-01-27] MEDS: Folic Acid 1 MG TAB PO SCH (08:38)
[2022-01-27] MEDS: metFORMIN 850 MG TAB PO SCH ×2 (08:38→17:24)
[2022-01-27] MEDS: Furosemide 40 MG/4 ML VIAL SLOW IVP SCH (08:39)
[2022-01-27] MEDS ORDERED: Diltiazem HCl SR 60 mg Capsule PO SCH (13:30)
[2022-01-27] MEDS ORDERED: Furosemide 40 MG/4 ML VIAL SLOW IVP SCH (14:00)
[2022-01-27] MEDS: Rivaroxaban 10 MG TAB PO SCH (20:52)
[2022-01-28 04:57] LABS: Anion Gap 11 mmol/L (10-20); BUN (Urea Nitrogen) 15 mg/dL (8.4-25.7); Calc. Creatinine Clearance 120 mL/min (70-130); Calcium 8.9 mg/dL (7.8-10.44); Carbon Dioxide 27 mmol/L (23-31); Chloride 106 mmol/L (98-107); Estimated GFR 80; Glucose 119 mg/dL (80-115); Magnesium 1.9 mg/dL (1.6-2.6); Sodium 140 mmol/L (136-145)
[2022-01-28] MEDS: CEFAZOLIN 1 GM in Sodium Chloride 0.9% 100 ML IVPB SCH (05:32)
[2022-01-28] MEDS: metFORMIN 850 MG TAB PO SCH (10:33)
[2022-01-28] MEDS: Furosemide 40 MG/4 ML VIAL SLOW IVP SCH (10:34)
[2022-01-28] MEDS: Folic Acid 1 MG TAB PO SCH (10:34)
[2022-01-28] MEDS: Iron Polysaccharides Complex 150 MG CAP PO SCH (10:39)
[2022-01-28 12:18] VITALS: BP 127/77; TEMP 97.8
[2022-01-28] MEDS ORDERED: Furosemide 40 MG/4 ML VIAL SLOW IVP SCH (14:00)
== END 2022-01-28 13:54 | disposition home or self-care (01) | DRG 602 ==
LOC: ERS 13:11 → T4-B 15:48 → IMCU/EMU 01-26 06:24 → 2NO 01-27 01:12
PROVIDERS: ADMIT Internal Medicine; ATTEND Internal Medicine
DX: L03.116 Cellulitis of left lower limb (principal); I50.33 Acute on chronic diastolic (congestive) heart failure; Z20.822 Contact with and (suspected) exposure to COVID-19; I25.10 Atherosclerotic heart disease of native coronary artery without angina pectoris; I48.91 Unspecified atrial fibrillation; I87.2 Venous insufficiency (chronic) (peripheral); D64.9 Anemia, unspecified; I11.0 Hypertensive heart disease with heart failure; E66.01 Morbid (severe) obesity due to excess calories; Z68.38 Body mass index [BMI] 38.0-38.9, adult; Z79.01 Long term (current) use of anticoagulants; Z79.899 Other long term (current) drug therapy; Z79.84 Long term (current) use of oral hypoglycemic drugs
CPT/HCPCS: 36415; 36416; 80048; 80053; 81003; 81015; 83735; 83880; 84484; 85025; 85652; 86140; 87040; 93005; 93010; 96365; 96367; 97139; J0690; J0692; J0696; J1815; J1940; J3370; J3475; J3490; J7030; U0003; U0005

== ENCOUNTER 2022-02-12 19:19 | Inpatient (IN) | payer OTHER ==
[2022-02-12 20:46] LABS: #Eosinphils 0.2 thou/uL (0.0-0.7); #Lymphocytes 1.2 thou/uL (1.20-3.40); #Monocytes 0.7 thou/uL (0.11-0.59); #Neutrophils 4.5 thou/uL (1.40-6.50); %Basophils 0.2 % (0.0-1.0); %Eosinophils 2.9 % (0.0-10.0); %Lymphocytes 17.6 % (21.0-51.0); %Monocytes 11.1 % (0.0-10.0); %Neutrophils 68.2 % (42.0-75.0); Hemoglobin 6.9 g/dL (14.0-18.0); Mean Corpuscular HGB CONC 29.9 g/dL (32.0-36.0); Mean Corpuscular Hemoglobin 26.1 pg (27.0-31.0); Mean Platelet Volume 6.9 fL (7.4-10.4); Platelet Count 162 thou/uL (130-400); RBC Distribution Width 18.4 % (11.5-14.5); Red Blood Cell (RBC) Count 2.66 mill/uL (4.70-6.10); White Blood Cell (WBC) Count 6.6 thou/uL (4.8-10.8)
[2022-02-12 20:49] LABS: Bacteria/HPF None Seen HPF (None Seen); Bilirubin Negative (Negative); Blood, Urine 2+ (Negative); Clarity Clear (Clear); Glucose, Urine (Dipstick) Normal (Negative); Ketone, Urine Negative (Negative); Leukocyte Negative Leu/uL (Negative); Nitrite Negative (Negative); Protein, Urine (Dipstick) Negative (Neg-Trace); Specific Gravity, Urine 1.013 (1.002-1.036); Squamous Epithelial None Seen HPF (0-3); Urobilinogen Normal mg/dL (Less than 2); WBC/HPF 0-3 HPF (0-3); pH, Urine 5.5 (5.0-9.0)
[2022-02-12 21:04] LABS: ALT (SGPT) 9 U/L (8-55); AST (SGOT) 17 U/L (5-34); Albumin 3.3 g/dL (3.4-4.8); Alkaline Phosphatase 110 U/L (40-110); Anion Gap 13 mmol/L (10-20); BUN (Urea Nitrogen) 43 mg/dL (8.4-25.7); Bilirubin, Total 0.5 mg/dL (0.2-1.2); Calc. Creatinine Clearance 0 mL/min (70-130); Calcium 8.7 mg/dL (7.8-10.44); Carbon Dioxide 24 mmol/L (23-31); Chloride 105 mmol/L (98-107); Estimated GFR 55; Globulin 3.5 g/dL (2.4-3.5); Glucose 151 mg/dL (80-115); Potassium 6.3 mmol/L (3.5-5.1); Protein, Total 6.8 g/dL (5.8-8.1); Sodium 136 mmol/L (136-145)
[2022-02-12] MEDS ORDERED: Insulin Regular 300 UNITS/3 ML VIAL ONE (21:29)
[2022-02-12] MEDS ORDERED: Furosemide 40 MG/4 ML VIAL ONE (21:29)
[2022-02-12] MEDS ORDERED: Calcium Chloride 1 GM/10 ML Abboject SYRINGE ONE (21:29)
[2022-02-13 00:08] VITALS: BMI 44.6
[2022-02-13 00:50] LABS: Troponin I 0.015 ng/mL (< 0.028)
[2022-02-13 05:01] LABS: Troponin I 0.048 ng/mL (< 0.028)
[2022-02-13] MEDS ORDERED: Ondansetron PF 4 MG/2 ML Vial IVP PRN (05:39)
[2022-02-13 06:13] LABS: #Eosinphils 0.2 thou/uL (0.0-0.7); #Monocytes 0.9 thou/uL (0.11-0.59); #Neutrophils 4.5 thou/uL (1.40-6.50); %Basophils 0.5 % (0.0-1.0); %Eosinophils 2.9 % (0.0-10.0); %Lymphocytes 14.4 % (21.0-51.0); %Neutrophils 68.2 % (42.0-75.0); Mean Corpuscular HGB CONC 30.2 g/dL (32.0-36.0); Mean Corpuscular Hemoglobin 26.8 pg (27.0-31.0); Mean Corpuscular Volume 88.7 fL (78.0-98.0); Mean Platelet Volume 7.1 fL (7.4-10.4); Platelet Count 147 thou/uL (130-400); White Blood Cell (WBC) Count 6.6 thou/uL (4.8-10.8)
[2022-02-13 06:30] LABS: Anion Gap 11 mmol/L (10-20); BUN (Urea Nitrogen) 40 mg/dL (8.4-25.7); Calc. Creatinine Clearance 99 mL/min (70-130); Calcium 9.2 mg/dL (7.8-10.44); Carbon Dioxide 26 mmol/L (23-31); Chloride 105 mmol/L (98-107); Estimated GFR 63; Glucose 116 mg/dL (80-115); Magnesium 2.1 mg/dL (1.6-2.6); Potassium 5.2 mmol/L (3.5-5.1); Sodium 137 mmol/L (136-145)
[2022-02-13] MEDS: Furosemide 40 MG/4 ML VIAL SLOW IVP SCH ×2 (06:44→14:41)
[2022-02-13] MEDS ORDERED: HumaLOG 300 UNITS/3 ML VIAL SC PRN (07:22)
[2022-02-13] MEDS ORDERED: Dextrose 50% Abboject 50 ML SYRINGE SLOW IVP PRN (07:22)
[2022-02-13] MEDS ORDERED: Dextrose 5% in Water 1,000 ML IV PRN (07:22)
[2022-02-13] MEDS ORDERED: Docusate 100 MG CAP PO PRN (08:09)
[2022-02-13] MEDS ORDERED: Polyethylene Glycol 3350 17 GM Packet PO PRN (08:09)
[2022-02-13] MEDS ORDERED: Dextrose 50% Abboject 50 ML SYRINGE SLOW IVP SCH (08:15)
[2022-02-13] MEDS ORDERED: Insulin Regular 300 UNITS/3 ML VIAL IVP SCH (08:15)
[2022-02-13 12:30] LABS: Hemoglobin 7.3 g/dL (14.0-18.0)
[2022-02-13] MEDS: HumaLOG 300 UNITS/3 ML VIAL SC PRN (17:59)
[2022-02-14] MEDS: Acetaminophen 325 MG TAB PO PRN ×2 (00:17→20:06)
[2022-02-14 04:45] LABS: Hemoglobin 6.6 g/dL (14.0-18.0); Mean Corpuscular HGB CONC 30.7 g/dL (32.0-36.0); Mean Corpuscular Hemoglobin 26.8 pg (27.0-31.0); Mean Corpuscular Volume 87.3 fL (78.0-98.0); Mean Platelet Volume 7.3 fL (7.4-10.4); Platelet Count 137 thou/uL (130-400); RBC Distribution Width 18.3 % (11.5-14.5); Red Blood Cell (RBC) Count 2.47 mill/uL (4.70-6.10)
[2022-02-14 05:01] LABS: Anion Gap 13 mmol/L (10-20); BUN (Urea Nitrogen) 34 mg/dL (8.4-25.7); Calc. Creatinine Clearance 105 mL/min (70-130); Calcium 8.6 mg/dL (7.8-10.44); Carbon Dioxide 26 mmol/L (23-31); Chloride 105 mmol/L (98-107); Estimated GFR 67; Glucose 103 mg/dL (80-115); Potassium 4.7 mmol/L (3.5-5.1); Sodium 139 mmol/L (136-145)
[2022-02-14] MEDS: Furosemide 40 MG/4 ML VIAL SLOW IVP SCH ×2 (05:32→15:26)
[2022-02-14] MEDS: Metolazone 2.5 MG TAB PO SCH (09:19)
[2022-02-14] MEDS: HumaLOG 300 UNITS/3 ML VIAL SC PRN (11:21)
[2022-02-14 18:07] LABS: Hemoglobin 8.4 g/dL (14.0-18.0)
[2022-02-15 04:23] LABS: Hemoglobin 7.6 g/dL (14.0-18.0); Mean Corpuscular HGB CONC 31.2 g/dL (32.0-36.0); Mean Corpuscular Hemoglobin 27.3 pg (27.0-31.0); Mean Corpuscular Volume 87.5 fL (78.0-98.0); Mean Platelet Volume 7.2 fL (7.4-10.4); Platelet Count 121 thou/uL (130-400); RBC Distribution Width 17.7 % (11.5-14.5); Red Blood Cell (RBC) Count 2.76 mill/uL (4.70-6.10); White Blood Cell (WBC) Count 4.5 thou/uL (4.8-10.8)
[2022-02-15 04:42] LABS: Anion Gap 14 mmol/L (10-20); BUN (Urea Nitrogen) 36 mg/dL (8.4-25.7); Calc. Creatinine Clearance 97 mL/min (70-130); Calcium 8.3 mg/dL (7.8-10.44); Carbon Dioxide 26 mmol/L (23-31); Chloride 103 mmol/L (98-107); Estimated GFR 62; Glucose 126 mg/dL (80-115); Potassium 4.5 mmol/L (3.5-5.1); Sodium 138 mmol/L (136-145)
[2022-02-15] MEDS: Furosemide 40 MG/4 ML VIAL SLOW IVP SCH ×2 (05:28→14:55)
[2022-02-15] MEDS: Metolazone 2.5 MG TAB PO SCH (07:54)
[2022-02-15] MEDS ORDERED: Spironolactone 25 MG TAB PO SCH (21:00)
[2022-02-16 04:36] LABS: Hemoglobin 7.6 g/dL (14.0-18.0); Mean Corpuscular HGB CONC 30.3 g/dL (32.0-36.0); Mean Corpuscular Hemoglobin 27.2 pg (27.0-31.0); Mean Corpuscular Volume 89.6 fL (78.0-98.0); Mean Platelet Volume 8.2 fL (7.4-10.4); Platelet Count 80 thou/uL (130-400); RBC Distribution Width 17.4 % (11.5-14.5); White Blood Cell (WBC) Count 4.6 thou/uL (4.8-10.8)
[2022-02-16 04:41] LABS: Anion Gap 11 mmol/L (10-20); BUN (Urea Nitrogen) 33 mg/dL (8.4-25.7); Calc. Creatinine Clearance 106 mL/min (70-130); Calcium 8.2 mg/dL (7.8-10.44); Carbon Dioxide 30 mmol/L (23-31); Chloride 101 mmol/L (98-107); Estimated GFR 68; Glucose 159 mg/dL (80-115); Potassium 3.9 mmol/L (3.5-5.1); Sodium 138 mmol/L (136-145)
[2022-02-16] MEDS: Furosemide 40 MG/4 ML VIAL SLOW IVP SCH (05:44)
[2022-02-16 11:31] VITALS: BP 115/60; TEMP 98
== END 2022-02-16 14:15 | disposition home or self-care (01) | DRG 291 ==
LOC: ERS 19:19 → 2NO 23:00
PROVIDERS: ADMIT Internal Medicine; ATTEND Internal Medicine
DX: I11.0 Hypertensive heart disease with heart failure (principal); I50.33 Acute on chronic diastolic (congestive) heart failure; N17.9 Acute kidney failure, unspecified; E11.9 Type 2 diabetes mellitus without complications; I25.10 Atherosclerotic heart disease of native coronary artery without angina pectoris; K74.60 Unspecified cirrhosis of liver; I48.0 Paroxysmal atrial fibrillation; E87.6 Hypokalemia; I87.2 Venous insufficiency (chronic) (peripheral); E87.5 Hyperkalemia; Z87.891 Personal history of nicotine dependence; Z79.84 Long term (current) use of oral hypoglycemic drugs; Z79.899 Other long term (current) drug therapy
CPT/HCPCS: 36415; 36416; 36430; 71045; 76705; 80048; 80053; 81003; 81015; 83735; 83880; 84484; 85025; 85027; 86850; 86900; 86901; 93005; 93306; 96374; 96375; J1815; J1940; J7999; P9016; U0003; U0005

== ENCOUNTER 2022-03-13 10:41 | Inpatient (IN) | payer OTHER ==
[~2022-03-13 10:41] MED LIST: Iopamidol-370 76% 500 ML 1 ML ONE
[2022-03-13] MEDS ORDERED: Tenecteplase 50 MG - STEMI KIT ONE (11:06)
[2022-03-13 11:07] LABS: #Eosinphils 0.2 thou/uL (0.0-0.7); #Lymphocytes 0.8 thou/uL (1.20-3.40); #Monocytes 0.6 thou/uL (0.11-0.59); #Neutrophils 3.3 thou/uL (1.40-6.50); %Basophils 0.3 % (0.0-1.0); %Eosinophils 3.2 % (0.0-10.0); %Lymphocytes 16.1 % (21.0-51.0); %Monocytes 11.7 % (0.0-10.0); %Neutrophils 68.7 % (42.0-75.0); Hemoglobin 8.3 g/dL (14.0-18.0); Mean Corpuscular HGB CONC 30.3 g/dL (32.0-36.0); Mean Corpuscular Hemoglobin 25.4 pg (27.0-31.0); Mean Corpuscular Volume 83.8 fL (78.0-98.0); Mean Platelet Volume 7.3 fL (7.4-10.4); Platelet Count 151 thou/uL (130-400); RBC Distribution Width 16.9 % (11.5-14.5); Red Blood Cell (RBC) Count 3.28 mill/uL (4.70-6.10); White Blood Cell (WBC) Count 4.8 thou/uL (4.8-10.8)
[2022-03-13 11:17] LABS: INR-International Normal Ratio 1.2; Prothrombin Time 14.8 sec (12.0-14.7)
[2022-03-13 11:18] LABS: PTT 34.1 sec (22.9-36.1)
[2022-03-13 11:27] LABS: ALT (SGPT) 8 U/L (8-55); AST (SGOT) 19 U/L (5-34); Albumin 3.4 g/dL (3.4-4.8); Alkaline Phosphatase 124 U/L (40-110); Anion Gap 14 mmol/L (10-20); BUN (Urea Nitrogen) 24 mg/dL (8.4-25.7); Bilirubin, Total 0.6 mg/dL (0.2-1.2); Calc. Creatinine Clearance 0 mL/min (70-130); Calcium 8.8 mg/dL (7.8-10.44); Carbon Dioxide 23 mmol/L (23-31); Chloride 104 mmol/L (98-107); Estimated GFR 59; Globulin 4.1 g/dL (2.4-3.5); Glucose 200 mg/dL (80-115); Potassium 4.9 mmol/L (3.5-5.1); Protein, Total 7.5 g/dL (5.8-8.1); Sodium 136 mmol/L (136-145)
[2022-03-13] MEDS ORDERED: hydrALAZINE 20 MG/ML VIAL SLOW IVP PRN (12:45)
[2022-03-13] MEDS ORDERED: niCARdipine 25 MG in Sodium Chloride 0.9% 250 ML 250 ML IVPB PRN (12:45)
[2022-03-13] MEDS ORDERED: Senokot S 8.6-50 MG TAB PO PRN (12:45)
[2022-03-13] MEDS ORDERED: Ondansetron PF 4 MG/2 ML Vial IVP PRN (12:45)
[2022-03-13] MEDS ORDERED: Dextrose 50% Abboject 50 ML SYRINGE SLOW IVP PRN (12:45)
[2022-03-13] MEDS ORDERED: Mag-Al 1200 mg/1200 mg/30 ML UDCUP PO PRN (12:45)
[2022-03-13] MEDS ORDERED: Labetalol HCl 100 MG/20 ML VIAL SLOW IVP PRN (12:45)
[2022-03-13] MEDS ORDERED: Communication Order-Pharmacy FS SCH (12:45)
[2022-03-13] MEDS ORDERED: Dextrose 5% in Water 1,000 ML IV PRN (12:45)
[2022-03-13] MEDS ORDERED: Acetaminophen 325 MG TAB PO PRN ×2 (12:45)
[2022-03-13 14:11] LABS: SARS-CoV-2 NAA Rapid Test Not Detected (NotDetected)
[2022-03-13] MEDS: Atorvastatin Calcium 40 MG TAB PO SCH (20:46)
[2022-03-14] MEDS: Pantoprazole 40 MG VIAL IVP SCH (09:55)
[2022-03-14] MEDS ORDERED: Electrolyte Replacement Protocol 1 EACH FS SCH (10:15)
[2022-03-14] MEDS ORDERED: Electrolyte Replacement Protocol FS PRN (10:30)
[2022-03-14] MEDS: Folic Acid 1 MG TAB PO SCH (11:39)
[2022-03-14] MEDS ORDERED: Metoprolol Tartrate 5 MG/5 ML VIAL IVP PRN (11:47)
[2022-03-14 12:09] LABS: Anion Gap 11 mmol/L (10-20); BUN (Urea Nitrogen) 16 mg/dL (8.4-25.7); Calc. Creatinine Clearance 116 mL/min (70-130); Carbon Dioxide 27 mmol/L (23-31); Chloride 106 mmol/L (98-107); Cholesterol 112 mg/dl (< 200 Desired); Estimated GFR 83; Glucose 114 mg/dL (80-115); HDL Cholesterol 28 mg/dL (>60 Neg Risk); LDL Cholesterol, Calculated 73 mg/dL; Potassium 5.1 mmol/L (3.5-5.1); Sodium 139 mmol/L (136-145); Triglycerides 55 mg/dL (Less than 150)
[2022-03-14 12:13] LABS: #Eosinphils 0.1 thou/uL (0.0-0.7); #Lymphocytes 0.7 thou/uL (1.20-3.40); #Monocytes 0.6 thou/uL (0.11-0.59); #Neutrophils 4.7 thou/uL (1.40-6.50); %Basophils 0.5 % (0.0-1.0); %Eosinophils 1.9 % (0.0-10.0); %Lymphocytes 10.9 % (21.0-51.0); %Monocytes 9.4 % (0.0-10.0); %Neutrophils 77.4 % (42.0-75.0); Hemoglobin 8.3 g/dL (14.0-18.0); Hypochromia SLIGHT = 6-15 cells (100X) (0-5/hpf); MDiff Complete? YES; Mean Corpuscular HGB CONC 30.4 g/dL (32.0-36.0); Mean Corpuscular Hemoglobin 25.4 pg (27.0-31.0); Mean Corpuscular Volume 83.3 fL (78.0-98.0); Mean Platelet Volume 6.9 fL (7.4-10.4); Platelet Count 110 thou/uL (130-400); Platelet Morphology Comment Appears Decreased; Polychromasia SLIGHT = 2-3 cells (100X) (0-2/hpf); Red Blood Cell (RBC) Count 3.26 mill/uL (4.70-6.10); White Blood Cell (WBC) Count 6.1 thou/uL (4.8-10.8)
[2022-03-14] MEDS ORDERED: Insulin Regular 300 UNITS/3 ML VIAL SC PRN ×2 (12:41)
[2022-03-14] MEDS: Dextrose 5 % And 0.9 % NaCl 1,000 ML IV SCH (15:28)
[2022-03-14] MEDS: Atorvastatin Calcium 40 MG TAB PO SCH (21:41)
[2022-03-15] MEDS ORDERED: Acetaminophen 650 MG Suppository PR PRN (01:19)
[2022-03-15] MEDS ORDERED: Acetaminophen 325 MG Suppository PR PRN (01:53)
[2022-03-15 05:54] LABS: #Eosinphils 0.1 thou/uL (0.0-0.7); #Lymphocytes 0.6 thou/uL (1.20-3.40); #Monocytes 0.6 thou/uL (0.11-0.59); #Neutrophils 3.8 thou/uL (1.40-6.50); %Basophils 0.6 % (0.0-1.0); %Eosinophils 2.6 % (0.0-10.0); %Monocytes 11.4 % (0.0-10.0); %Neutrophils 74.4 % (42.0-75.0); Hemoglobin 7.9 g/dL (14.0-18.0); Mean Corpuscular HGB CONC 30.5 g/dL (32.0-36.0); Mean Corpuscular Hemoglobin 25.2 pg (27.0-31.0); Mean Corpuscular Volume 82.7 fL (78.0-98.0); Mean Platelet Volume 7.5 fL (7.4-10.4); Platelet Count 111 thou/uL (130-400); Red Blood Cell (RBC) Count 3.11 mill/uL (4.70-6.10); White Blood Cell (WBC) Count 5.1 thou/uL (4.8-10.8)
[2022-03-15 06:03] LABS: Anion Gap 12 mmol/L (10-20); BUN (Urea Nitrogen) 12 mg/dL (8.4-25.7); Calc. Creatinine Clearance 126 mL/min (70-130); Carbon Dioxide 26 mmol/L (23-31); Chloride 105 mmol/L (98-107); Estimated GFR 92; Glucose 126 mg/dL (80-115); Magnesium 1.8 mg/dL (1.6-2.6); Potassium 4.5 mmol/L (3.5-5.1); Sodium 138 mmol/L (136-145)
[2022-03-15] MEDS ORDERED: Magnesium 2 GM/50 ML(in water) 2 GM in Premix Bag 1 BAG IVPB SCH (08:00)
[2022-03-15] MEDS: Pantoprazole 40 MG VIAL IVP SCH (08:56)
[2022-03-15] MEDS: Folic Acid 1 MG TAB PO SCH (08:56)
[2022-03-15] MEDS ORDERED: Metoprolol Tartrate 5 MG/5 ML VIAL IVP SCH (10:40)
[2022-03-15] MEDS: Clindamycin/D5W 300 MG/50 ML BAG IVPB SCH ×3 (13:43→23:31)
[2022-03-15] MEDS: Dextrose 5 % And 0.9 % NaCl 1,000 ML IV SCH (15:34)
[2022-03-15] MEDS ORDERED: Senokot S 8.6-50 MG TAB PER TUBE PRN (17:15)
[2022-03-15] MEDS: Metoprolol Tartrate 25 MG TAB PER TUBE SCH (21:25)
[2022-03-15] MEDS: Atorvastatin Calcium 40 MG TAB PER TUBE SCH (21:25)
[2022-03-16] MEDS ORDERED: Ketorolac Tromethamine 30 MG/ML VIAL IVP SCH (01:30)
[2022-03-16] MEDS: Clindamycin/D5W 300 MG/50 ML BAG IVPB SCH ×4 (05:32→23:59)
[2022-03-16] MEDS: Metoprolol Tartrate 25 MG TAB PER TUBE SCH ×2 (08:30→21:55)
[2022-03-16] MEDS: Folic Acid 1 MG TAB PER TUBE SCH (08:30)
[2022-03-16] MEDS: Pantoprazole 40 MG VIAL IVP SCH (08:38)
[2022-03-16 12:41] LABS: Hemoglobin 8.5 g/dL (14.0-18.0); Mean Corpuscular HGB CONC 29.7 g/dL (32.0-36.0); Mean Corpuscular Hemoglobin 25.1 pg (27.0-31.0); Mean Corpuscular Volume 84.6 fL (78.0-98.0); Mean Platelet Volume 6.9 fL (7.4-10.4); Platelet Count 100 thou/uL (130-400); RBC Distribution Width 16.6 % (11.5-14.5); Red Blood Cell (RBC) Count 3.37 mill/uL (4.70-6.10); White Blood Cell (WBC) Count 5.8 thou/uL (4.8-10.8)
[2022-03-16] MEDS ORDERED: Metoclopramide HCl 10 MG/2 ML VIAL IVP SCH (14:00)
[2022-03-16] MEDS: Dextrose 5 % And 0.9 % NaCl 1,000 ML IV SCH (14:37)
[2022-03-16] MEDS: Atorvastatin Calcium 40 MG TAB PER TUBE SCH (21:55)
[2022-03-16] MEDS: Acetaminophen 325 MG TAB PER TUBE PRN (21:57)
[2022-03-17] MEDS: Clindamycin/D5W 300 MG/50 ML BAG IVPB SCH ×2 (05:11→11:37)
[2022-03-17 06:22] LABS: #Eosinphils 0.4 thou/uL (0.0-0.7); #Lymphocytes 0.6 thou/uL (1.20-3.40); #Monocytes 0.6 thou/uL (0.11-0.59); #Neutrophils 4.8 thou/uL (1.40-6.50); %Basophils 0.2 % (0.0-1.0); %Eosinophils 6.2 % (0.0-10.0); %Monocytes 9.9 % (0.0-10.0); %Neutrophils 74.7 % (42.0-75.0); Hemoglobin 8.9 g/dL (14.0-18.0); Mean Corpuscular Hemoglobin 25.3 pg (27.0-31.0); Mean Corpuscular Volume 84.1 fL (78.0-98.0); Mean Platelet Volume 7.8 fL (7.4-10.4); Platelet Count 114 thou/uL (130-400); RBC Distribution Width 16.7 % (11.5-14.5); Red Blood Cell (RBC) Count 3.51 mill/uL (4.70-6.10); White Blood Cell (WBC) Count 6.4 thou/uL (4.8-10.8)
[2022-03-17 06:49] LABS: Anion Gap 14 mmol/L (10-20); BUN (Urea Nitrogen) 12 mg/dL (8.4-25.7); Calc. Creatinine Clearance 129 mL/min (70-130); Carbon Dioxide 25 mmol/L (23-31); Chloride 107 mmol/L (98-107); Estimated GFR 95; Glucose 119 mg/dL (80-115); Potassium 4.4 mmol/L (3.5-5.1); Sodium 142 mmol/L (136-145)
[2022-03-17] MEDS: Acetaminophen 325 MG TAB PER TUBE PRN ×2 (08:41→23:31)
[2022-03-17] MEDS: Metoprolol Tartrate 25 MG TAB PER TUBE SCH ×2 (08:42→23:31)
[2022-03-17] MEDS: Folic Acid 1 MG TAB PER TUBE SCH (08:42)
[2022-03-17] MEDS: Pantoprazole 40 MG VIAL IVP SCH (08:42)
[2022-03-17] MEDS: Dextrose 5 % And 0.9 % NaCl 1,000 ML IV SCH (11:41)
[2022-03-17 13:06] VITALS: BMI 36.1
[2022-03-17] MEDS ORDERED: Sodium Bicarbonate Tab 325 MG TAB PER TUBE PRN (14:45)
[2022-03-17] MEDS ORDERED: Pancrelipase DR 12,000 1 CAP FS PRN (14:45)
[2022-03-17] MEDS: Atorvastatin Calcium 40 MG TAB PER TUBE SCH (23:31)
[2022-03-18 05:31] LABS: #Eosinphils 0.4 thou/uL (0.0-0.7); #Lymphocytes 0.7 thou/uL (1.20-3.40); #Monocytes 0.6 thou/uL (0.11-0.59); #Neutrophils 5.3 thou/uL (1.40-6.50); %Basophils 0.1 % (0.0-1.0); %Eosinophils 5.8 % (0.0-10.0); %Lymphocytes 10.3 % (21.0-51.0); %Monocytes 8.4 % (0.0-10.0); %Neutrophils 75.4 % (42.0-75.0); Hemoglobin 8.8 g/dL (14.0-18.0); Mean Corpuscular HGB CONC 31.1 g/dL (32.0-36.0); Mean Corpuscular Hemoglobin 26.2 pg (27.0-31.0); Mean Corpuscular Volume 84.1 fL (78.0-98.0); Mean Platelet Volume 7.8 fL (7.4-10.4); Platelet Count 102 thou/uL (130-400); RBC Distribution Width 16.6 % (11.5-14.5); Red Blood Cell (RBC) Count 3.36 mill/uL (4.70-6.10)
[2022-03-18 05:43] LABS: Anion Gap 12 mmol/L (10-20); BUN (Urea Nitrogen) 11 mg/dL (8.4-25.7); Calc. Creatinine Clearance 139 mL/min (70-130); Calcium 8.8 mg/dL (7.8-10.44); Carbon Dioxide 27 mmol/L (23-31); Chloride 107 mmol/L (98-107); Estimated GFR 99; Glucose 131 mg/dL (80-115); Potassium 4.4 mmol/L (3.5-5.1); Sodium 142 mmol/L (136-145)
[2022-03-18] MEDS: Folic Acid 1 MG TAB PER TUBE SCH (09:52)
[2022-03-18] MEDS: Metoprolol Tartrate 25 MG TAB PER TUBE SCH ×2 (09:52→21:30)
[2022-03-18] MEDS: Pantoprazole 40 MG VIAL IVP SCH (09:53)
[2022-03-18] MEDS: Scopolamine 1.5 mg/72 hour Patch TD SCH (12:54)
[2022-03-18] MEDS: Acetaminophen 325 MG TAB PER TUBE PRN (12:54)
[2022-03-18] MEDS: Atorvastatin Calcium 40 MG TAB PER TUBE SCH (21:30)
[2022-03-19] MEDS: Acetaminophen 650 MG/20.3 ML UDCUP PER TUBE PRN ×2 (05:31→18:05)
[2022-03-19 05:39] LABS: #Eosinphils 0.3 thou/uL (0.0-0.7); #Lymphocytes 0.7 thou/uL (1.20-3.40); #Monocytes 0.7 thou/uL (0.11-0.59); #Neutrophils 6.3 thou/uL (1.40-6.50); %Eosinophils 3.9 % (0.0-10.0); %Lymphocytes 8.2 % (21.0-51.0); %Monocytes 9.1 % (0.0-10.0); %Neutrophils 78.8 % (42.0-75.0); Hemoglobin 8.7 g/dL (14.0-18.0); Mean Corpuscular HGB CONC 29.7 g/dL (32.0-36.0); Mean Corpuscular Volume 84.2 fL (78.0-98.0); Platelet Count 105 thou/uL (130-400); RBC Distribution Width 16.8 % (11.5-14.5); Red Blood Cell (RBC) Count 3.48 mill/uL (4.70-6.10); White Blood Cell (WBC) Count 7.9 thou/uL (4.8-10.8)
[2022-03-19 05:59] LABS: Anion Gap 12 mmol/L (10-20); BUN (Urea Nitrogen) 13 mg/dL (8.4-25.7); Calc. Creatinine Clearance 134 mL/min (70-130); Carbon Dioxide 29 mmol/L (23-31); Chloride 105 mmol/L (98-107); Estimated GFR 98; Glucose 139 mg/dL (80-115); Potassium 4.6 mmol/L (3.5-5.1); Sodium 141 mmol/L (136-145)
[2022-03-19] MEDS: Pantoprazole 40 MG VIAL IVP SCH (08:43)
[2022-03-19] MEDS: Metoprolol Tartrate 25 MG TAB PER TUBE SCH ×2 (08:43→21:03)
[2022-03-19] MEDS: Folic Acid 1 MG TAB PER TUBE SCH (08:43)
[2022-03-19] MEDS ORDERED: Iopamidol-370 76% 500 ML 1 ML ONE (10:05)
[2022-03-19] MEDS: Atorvastatin Calcium 40 MG TAB PER TUBE SCH (21:03)
[2022-03-20] MEDS: Acetaminophen 650 MG/20.3 ML UDCUP PER TUBE PRN ×2 (00:04→09:00)
[2022-03-20] MEDS: Folic Acid 1 MG TAB PER TUBE SCH (08:55)
[2022-03-20] MEDS: Metoprolol Tartrate 25 MG TAB PER TUBE SCH ×2 (08:56→20:51)
[2022-03-20] MEDS: Pantoprazole 40 MG VIAL IVP SCH (08:56)
[2022-03-20] MEDS ORDERED: CEFAZOLIN 1 GM VIAL ONE (12:36)
[2022-03-20] MEDS ORDERED: Sodium Chloride 0.9% 100 ML ONE ×2 (12:36→12:39)
[2022-03-20] MEDS ORDERED: CEFAZOLIN 2 GM VIAL ONE (12:39)
[2022-03-20] MEDS ORDERED: PROPOFOL 200 MG/20 ML VIAL ONE (12:45)
[2022-03-20] MEDS ORDERED: Lidocaine 1% MPF 2 ML VIAL ONE (12:45)
[2022-03-20] MEDS ORDERED: Morphine 2 MG/ML VIAL ONE (13:52)
[2022-03-20] MEDS ORDERED: Melatonin 3 MG TAB PER TUBE PRN (20:18)
[2022-03-20] MEDS: Atorvastatin Calcium 40 MG TAB PER TUBE SCH (20:51)
[2022-03-21] MEDS: Pantoprazole 40 MG VIAL IVP SCH (09:03)
[2022-03-21] MEDS: Folic Acid 1 MG TAB PER TUBE SCH (09:03)
[2022-03-21] MEDS: Metoprolol Tartrate 25 MG TAB PER TUBE SCH (09:03)
[2022-03-21] MEDS: Acetaminophen 650 MG/20.3 ML UDCUP PER TUBE PRN (12:57)
[2022-03-21] MEDS: Scopolamine 1.5 mg/72 hour Patch TD SCH (12:58)
[2022-03-21 16:11] VITALS: BP 130/82; TEMP 97.8
== END 2022-03-21 16:39 | DRG 61 ==
LOC: ERS 10:41 → CCU 12:02 → NEURO 03-14 12:24
PROVIDERS: ADMIT Internal Medicine; ATTEND Internal Medicine
PROC: 3E03317 Introduction of Other Thrombolytic into Peripheral Vein, Percutaneous Approach (ICD-10-PCS; principal; 2022-03-13)
PROC: 0DH67UZ Insertion of Feeding Device into Stomach, Via Natural or Artificial Opening (ICD-10-PCS; 2022-03-13)
PROC: 0DH63UZ Insertion of Feeding Device into Stomach, Percutaneous Approach (ICD-10-PCS; 2022-03-20)
DX: I63.511 Cerebral infarction due to unspecified occlusion or stenosis of right middle cerebral artery (principal); G93.5 Compression of brain; G93.6 Cerebral edema; I61.9 Nontraumatic intracerebral hemorrhage, unspecified; G81.94 Hemiplegia, unspecified affecting left nondominant side; I48.19 Other persistent atrial fibrillation; I13.0 Hypertensive heart and chronic kidney disease with heart failure and stage 1 through stage 4 chronic kidney disease, or unspecified chronic kidney disease; R47.81 Slurred speech; I50.9 Heart failure, unspecified; I48.91 Unspecified atrial fibrillation; I25.10 Atherosclerotic heart disease of native coronary artery without angina pectoris; K21.9 Gastro-esophageal reflux disease without esophagitis; N40.0 Benign prostatic hyperplasia without lower urinary tract symptoms; R29.717 NIHSS score 17; G47.33 Obstructive sleep apnea (adult) (pediatric); K74.60 Unspecified cirrhosis of liver; I48.0 Paroxysmal atrial fibrillation; N18.9 Chronic kidney disease, unspecified; E11.22 Type 2 diabetes mellitus with diabetic chronic kidney disease; D63.1 Anemia in chronic kidney disease; K04.7 Periapical abscess without sinus; R13.12 Dysphagia, oropharyngeal phase; F10.10 Alcohol abuse, uncomplicated; Z20.822 Contact with and (suspected) exposure to COVID-19; G51.0 Bell's palsy; Z87.891 Personal history of nicotine dependence; Z79.899 Other long term (current) drug therapy; Z79.84 Long term (current) use of oral hypoglycemic drugs; Z91.19 Patient's noncompliance with other medical treatment and regimen; Z98.890 Other specified postprocedural states
CPT/HCPCS: 36415; 36416; 37195; 70450; 70496; 70498; 70551; 71045; 74018; 74177; 80048; 80053; 80061; 83735; 83880; 84484; 85025; 85027; 93005; 93306; 94760; 95712; 95819; 95957; 96374; C9113; J0690; J1885; J2270; J2704; J2765; J3101; J3475; J3490; J7042; Q9967; U0002; U0003; U0005

== ENCOUNTER 2022-04-27 14:24 | Outpatient (CLI) | payer OTHER | END 2022-04-27 14:25 | disposition home or self-care (01) | LOC: BICCT 14:24 | PROVIDERS: ATTEND Nurse Practitioner Family | DX: I61.9 Nontraumatic intracerebral hemorrhage, unspecified (principal); I63.511 Cerebral infarction due to unspecified occlusion or stenosis of right middle cerebral artery | CPT/HCPCS: 70450 ==

== ENCOUNTER 2022-09-27 05:53 | Day surgery (SDC) | payer OTHER ==
[2022-09-26 09:59] VITALS: BMI 31.9
[2022-09-27 06:33] LABS: #Eosinphils 0.1 thou/uL (0.0-0.7); #Lymphocytes 0.7 thou/uL (1.20-3.40); #Monocytes 0.3 thou/uL (0.11-0.59); #Neutrophils 2.1 thou/uL (1.40-6.50); %Basophils 0.4 % (0.0-1.0); %Eosinophils 2.3 % (0.0-10.0); %Lymphocytes 22.5 % (21.0-51.0); %Neutrophils 65.8 % (42.0-75.0); Hemoglobin 10.1 g/dL (14.0-18.0); Mean Corpuscular HGB CONC 33.7 g/dL (32.0-36.0); Mean Corpuscular Hemoglobin 32.2 pg (27.0-31.0); Mean Corpuscular Volume 95.7 fl (78.0-98.0); Mean Platelet Volume 6.3 fL (7.4-10.4); Platelet Count 80 10x3/uL (130-400); RBC Distribution Width 12.8 % (11.5-14.5); Red Blood Cell (RBC) Count 3.13 mill/uL (4.70-6.10); White Blood Cell (WBC) Count 3.1 10x3/uL (4.8-10.8)
[2022-09-27] MEDS ORDERED: fentaNYL PF 100 MCG/2 ML SYRINGE ONE (06:39)
[2022-09-27 06:44] LABS: INR-International Normal Ratio 1.1; Prothrombin Time 14.8 sec (12.0-14.7)
[2022-09-27 06:45] LABS: PTT 32.8 sec (22.9-36.1)
[2022-09-27 06:53] LABS: ALT (SGPT) 28 U/L (8-55); AST (SGOT) 30 U/L (5-34); Albumin 3.6 g/dL (3.4-4.8); Alkaline Phosphatase 148 U/L (40-110); Anion Gap 12 mmol/L (10-20); BUN (Urea Nitrogen) 19 mg/dL (8.4-25.7); Bilirubin, Total 0.6 mg/dL (0.2-1.2); Calc. Creatinine Clearance 98 mL/min (70-130); Calcium 9.1 mg/dL (7.8-10.44); Carbon Dioxide 23 mmol/L (23-31); Chloride 109 mmol/L (98-107); Estimated GFR 81; Globulin 3.3 g/dL (2.4-3.5); Glucose 113 mg/dL (80-115); Potassium 4.1 mmol/L (3.5-5.1); Protein, Total 6.9 g/dL (5.8-8.1); Sodium 140 mmol/L (136-145)
[2022-09-27] MEDS ORDERED: Lidocaine 1% PF 5 ML VIAL ONE (07:55)
[2022-09-27] MEDS ORDERED: PROPOFOL 200 MG/20 ML VIAL ONE (07:55)
== END 2022-09-27 08:56 | disposition home or self-care (01) ==
LOC: SDC 05:53
PROVIDERS: ATTEND Internal Medicine Cardiovascular Disease
PROC: B246ZZ4 Ultrasonography of Right and Left Heart, Transesophageal (ICD-10-PCS; principal; 2022-09-27)
DX: I48.19 Other persistent atrial fibrillation (principal); I08.1 Rheumatic disorders of both mitral and tricuspid valves; I13.0 Hypertensive heart and chronic kidney disease with heart failure and stage 1 through stage 4 chronic kidney disease, or unspecified chronic kidney disease; E11.22 Type 2 diabetes mellitus with diabetic chronic kidney disease; N18.30 Chronic kidney disease, stage 3 unspecified; I50.30 Unspecified diastolic (congestive) heart failure; I25.10 Atherosclerotic heart disease of native coronary artery without angina pectoris; K74.60 Unspecified cirrhosis of liver; D62 Acute posthemorrhagic anemia; Z87.891 Personal history of nicotine dependence; Z79.02 Long term (current) use of antithrombotics/antiplatelets; Z79.82 Long term (current) use of aspirin; Z79.84 Long term (current) use of oral hypoglycemic drugs; Z79.899 Other long term (current) drug therapy; Z95.818 Presence of other cardiac implants and grafts
CPT/HCPCS: 36415; 80053; 85025; 85610; 85730; 93312; J2704

== ENCOUNTER 2022-11-05 08:17 | Outpatient (CLI) | payer OTHER | END 2022-11-05 08:18 | disposition home or self-care (01) | LOC: BICULT 08:17 | PROVIDERS: ATTEND Physician Assistant Medical | DX: R77.2 Abnormality of alphafetoprotein (principal) | CPT/HCPCS: 76705 ==

== ENCOUNTER 2022-11-09 12:35 | Outpatient (CLI) | payer OTHER ==
[~2022-11-09 12:35] MED LIST changes: -Iopamidol-370 76% 500 ML 1 ML ONE; +Magnevist 469MG/ML 20 ML VIAL ONE
== END 2022-11-09 12:36 | disposition home or self-care (01) ==
LOC: MRI 12:35
PROVIDERS: ATTEND Physician Assistant Medical
DX: R77.2 Abnormality of alphafetoprotein (principal); K74.60 Unspecified cirrhosis of liver; K76.6 Portal hypertension; R16.1 Splenomegaly, not elsewhere classified; K76.89 Other specified diseases of liver
CPT/HCPCS: 74183; A9579

== ENCOUNTER 2022-11-14 15:55 | Outpatient (CLI) | payer OTHER | END 2022-11-14 15:56 | disposition home or self-care (01) | LOC: RAD 15:55 | PROVIDERS: ATTEND Nurse Practitioner Family | DX: M25.512 Pain in left shoulder (principal); M19.012 Primary osteoarthritis, left shoulder ==

== ENCOUNTER 2022-11-16 15:59 | Outpatient (CLI) | payer OTHER | END 2022-11-16 16:00 | disposition home or self-care (01) | LOC: BICRAD 15:59 | PROVIDERS: ATTEND Nurse Practitioner Family | DX: R22.2 Localized swelling, mass and lump, trunk (principal) | CPT/HCPCS: 71046 ==

== ENCOUNTER 2023-01-02 11:08 | Outpatient (CLI) | payer OTHER ==
[~2023-01-02 11:08] MED LIST changes: +Iopamidol 370 76% 100 ML VIAL ONE; -Magnevist 469MG/ML 20 ML VIAL ONE
== END 2023-01-02 11:09 | disposition home or self-care (01) ==
LOC: BICCT 11:08
PROVIDERS: ATTEND Internal Medicine Hematology & Oncology
DX: C22.0 Liver cell carcinoma (principal)
CPT/HCPCS: 71260; 82565; Q9967

== ENCOUNTER 2023-02-12 05:53 | Day surgery (SDC) | payer OTHER ==
[2023-01-31 15:34] VITALS: BMI 31.9
[2023-02-05 17:12] LABS: Mean Corpuscular HGB CONC 32.8 g/dL (32.0-36.0); Mean Corpuscular Hemoglobin 29.3 pg (27.0-33.0); Mean Corpuscular Volume 89.4 fl (81.2-95.1); Mean Platelet Volume 8.7 fl (7.4-10.4); Platelet Count 95 10x3/uL (150-450); RBC Distribution Width 16.7 % (11.5-14.5); Red Blood Cell (RBC) Count 3.41 10x6/uL (4.32-5.72)
[2023-02-05 17:13] LABS: INR-International Normal Ratio 1.1; Prothrombin Time 11.6 sec (9.5-12.1)
[2023-02-05 17:19] LABS: Iron 63 ug/dL (65-175); Iron Binding Capacity, Total 219 mcg/dL (261-462)
[2023-02-05 17:21] LABS: Anion Gap 13 mmol/L (10-20); BUN (Urea Nitrogen) 23 mg/dL (8.4-25.7); Calc. Creatinine Clearance 83 mL/min (70-130); Calcium 8.8 mg/dL (7.8-10.44); Carbon Dioxide 25 mmol/L (23-31); Chloride 106 mmol/L (98-107); Estimated GFR 66; Glucose 136 mg/dL (80-115); Iron 62 ug/dL (65-175); Iron Binding Capacity, Total 219 mcg/dL (261-462); Potassium 4.4 mmol/L (3.5-5.1); Sodium 140 mmol/L (136-145)
[2023-02-12] MEDS ORDERED: Ketamine 50 MG/ML (10ML VIAL) ONE (06:49)
[2023-02-12] MEDS ORDERED: PROPOFOL 20 ML ONE (06:50)
[2023-02-12] MEDS ORDERED: PHENYLEPHRINE-NS 100 MCG/ML 10 ML SYRINGE ONE (06:50)
== END 2023-02-12 08:50 | disposition home or self-care (01) ==
LOC: SDC 05:53
PROVIDERS: ATTEND Internal Medicine Cardiovascular Disease
DX: I48.19 Other persistent atrial fibrillation (principal); I13.0 Hypertensive heart and chronic kidney disease with heart failure and stage 1 through stage 4 chronic kidney disease, or unspecified chronic kidney disease; I50.30 Unspecified diastolic (congestive) heart failure; E11.22 Type 2 diabetes mellitus with diabetic chronic kidney disease; N18.30 Chronic kidney disease, stage 3 unspecified; D62 Acute posthemorrhagic anemia; I25.10 Atherosclerotic heart disease of native coronary artery without angina pectoris; K74.60 Unspecified cirrhosis of liver; Z95.818 Presence of other cardiac implants and grafts; Z87.891 Personal history of nicotine dependence; Z79.899 Other long term (current) drug therapy
CPT/HCPCS: 80048; 82728; 83540; 83550; 85027; 85610; 93312; J2704

== ENCOUNTER 2023-03-28 23:54 | Observation (INO) | payer OTHER ==
[2023-03-29 00:40] LABS: #Eosinphils 0.1 thou/uL (0.0-0.7); #Monocytes 0.5 thou/uL (0.11-0.59); #Neutrophils 1.7 thou/uL (1.40-6.50); %Basophils 0.4 % (0.0-1.0); %Eosinophils 1.8 % (0.0-10.0); %Monocytes 17.7 % (0.0-10.0); %Neutrophils 62.4 % (42.0-75.0); Hematocrit 27.8 % (42.0-52.0); Hemoglobin 9.6 g/dL (14.0-18.0); Mean Corpuscular HGB CONC 34.5 g/dL (32.0-36.0); Mean Corpuscular Hemoglobin 29.7 pg (27.0-31.0); Mean Corpuscular Volume 86.1 fl (78.0-98.0); Mean Platelet Volume 9.2 fL (7.4-10.4); Platelet Count 92 10x3/uL (130-400); RBC Distribution Width 13.3 % (11.5-14.5); Red Blood Cell (RBC) Count 3.23 mill/uL (4.70-6.10); White Blood Cell (WBC) Count 2.7 10x3/uL (4.8-10.8)
[2023-03-29 01:01] LABS: ALT (SGPT) 24 U/L (8-55); AST (SGOT) 30 U/L (5-34); Albumin 3.2 g/dL (3.4-4.8); Alkaline Phosphatase 307 U/L (40-110); Anion Gap 13 mmol/L (10-20); BUN (Urea Nitrogen) 25 mg/dL (8.4-25.7); Bilirubin, Total 0.7 mg/dL (0.2-1.2); Calc. Creatinine Clearance 0 mL/min (70-130); Calcium 9.1 mg/dL (7.8-10.44); Carbon Dioxide 24 mmol/L (23-31); Chloride 103 mmol/L (98-107); Estimated GFR 54; Globulin 3.6 g/dL (2.4-3.5); Glucose 100 mg/dL (80-115); Potassium 4.3 mmol/L (3.5-5.1); Protein, Total 6.8 g/dL (5.8-8.1); Sodium 136 mmol/L (136-145)
[2023-03-29 01:02] LABS: Burr Cells SLIGHT = 2-5 cells HPF (0-1); CellaVision Operator ID lab.abc; Platelet Adequacy Comment Platelets Decreased; Polychromasia SLIGHT = 2-3 cells HPF (0-2)
[2023-03-29 01:04] LABS: Troponin I Less than 0.010 ng/mL (< 0.028)
[2023-03-29] MEDS ORDERED: Aspirin Chewable 81 MG TAB ONE (03:38)
[2023-03-29 05:59] VITALS: BMI 41.5
[2023-03-29] MEDS ORDERED: Ondansetron ODT 4 MG TAB PO PRN (10:43)
[2023-03-29] MEDS ORDERED: Ondansetron PF 4 MG/2 ML Vial IVP PRN (10:43)
[2023-03-29] MEDS ORDERED: Sodium Chloride 0.9% 1,000 ML IV SCH (10:45)
[2023-03-29] MEDS ORDERED: hydrALAZINE 20 MG/ML VIAL SLOW IVP PRN (10:46)
[2023-03-29] MEDS ORDERED: Dextrose 5% in Water 1,000 ML IV PRN (10:48)
[2023-03-29] MEDS ORDERED: Dextrose 50% Abboject 50 ML SYRINGE SLOW IVP PRN (10:48)
[2023-03-29] MEDS ORDERED: HumaLOG 300 UNITS/3 ML VIAL SC PRN ×2 (10:48)
[2023-03-29] MEDS ORDERED: Glucagon 1 MG/ML KIT IM PRN (10:48)
[2023-03-29] MEDS ORDERED: Atorvastatin Calcium 40 MG TAB PO SCH (21:00)
[2023-03-30 06:08] LABS: #Monocytes 0.4 thou/uL (0.11-0.59); #Neutrophils 1.5 thou/uL (1.40-6.50); %Basophils 0.8 % (0.0-1.0); %Eosinophils 1.6 % (0.0-10.0); %Lymphocytes 17.6 % (21.0-51.0); %Monocytes 17.1 % (0.0-10.0); %Neutrophils 62.5 % (42.0-75.0); Hematocrit 28.2 % (42.0-52.0); Hemoglobin 9.5 g/dL (14.0-18.0); Mean Corpuscular HGB CONC 33.7 g/dL (32.0-36.0); Mean Corpuscular Hemoglobin 29.8 pg (27.0-31.0); Mean Corpuscular Volume 88.4 fl (78.0-98.0); Mean Platelet Volume 9.3 fL (7.4-10.4); RBC Distribution Width 13.3 % (11.5-14.5); Red Blood Cell (RBC) Count 3.19 mill/uL (4.70-6.10); White Blood Cell (WBC) Count 2.5 10x3/uL (4.8-10.8)
[2023-03-30 06:16] LABS: Hemoglobin A1c 5.4 % (4.0-6.0)
[2023-03-30 06:28] LABS: Platelet Count 84 10x3/uL (130-400)
[2023-03-30 06:39] LABS: ALT (SGPT) 21 U/L (8-55); AST (SGOT) 31 U/L (5-34); Alkaline Phosphatase 270 U/L (40-110); Anion Gap 9 mmol/L (10-20); BUN (Urea Nitrogen) 12 mg/dL (8.4-25.7); Bilirubin, Total 0.8 mg/dL (0.2-1.2); Calc. Creatinine Clearance 160 mL/min (70-130); Calcium 8.9 mg/dL (7.8-10.44); Carbon Dioxide 26 mmol/L (23-31); Cardiac Risk 3.1 (Less than 4.5); Chloride 107 mmol/L (98-107); Cholesterol 84 mg/dl (< 200 Desired); Estimated GFR 101; Globulin 3.8 g/dL (2.4-3.5); Glucose 84 mg/dL (80-115); HDL Cholesterol 27 mg/dL (>60 Neg Risk); LDL Cholesterol, Calculated 48 mg/dL; Protein, Total 6.8 g/dL (5.8-8.1); Sodium 138 mmol/L (136-145); Triglycerides 47 mg/dL (Less than 150)
[2023-03-30] MEDS ORDERED: FLUoxetine HCl 20 MG CAP PO SCH (09:00)
[2023-03-30] MEDS ORDERED: Clopidogrel Bisulfate 75 MG TAB PO SCH (09:00)
[2023-03-30] MEDS ORDERED: Folic Acid 1 MG TAB PO SCH (09:00)
[2023-03-30] MEDS ORDERED: Aspirin 81 mg Enteric Coated Tablet PO SCH (09:00)
[2023-03-30] MEDS ORDERED: Multivit, Therapeutic 1 TAB PO SCH (09:00)
[2023-03-30 12:03] VITALS: BP 129/68; TEMP 98.5
== END 2023-03-30 12:46 | disposition home or self-care (01) ==
LOC: ERS 23:54 → 2SE 03-29 03:26
PROVIDERS: ADMIT Student in an Organized Health Care Education/Training Program; ATTEND Internal Medicine
DX: G45.9 Transient cerebral ischemic attack, unspecified (principal); I69.951 Hemiplegia and hemiparesis following unspecified cerebrovascular disease affecting right dominant side; I50.33 Acute on chronic diastolic (congestive) heart failure; I11.0 Hypertensive heart disease with heart failure; N17.9 Acute kidney failure, unspecified; I48.20 Chronic atrial fibrillation, unspecified; E78.5 Hyperlipidemia, unspecified; E87.1 Hypo-osmolality and hyponatremia; I25.10 Atherosclerotic heart disease of native coronary artery without angina pectoris; E11.69 Type 2 diabetes mellitus with other specified complication; K21.9 Gastro-esophageal reflux disease without esophagitis; D64.9 Anemia, unspecified; F10.10 Alcohol abuse, uncomplicated; N40.0 Benign prostatic hyperplasia without lower urinary tract symptoms; K74.60 Unspecified cirrhosis of liver; Z79.84 Long term (current) use of oral hypoglycemic drugs; Z79.899 Other long term (current) drug therapy; Z93.1 Gastrostomy status; Z85.05 Personal history of malignant neoplasm of liver; Y90.9 Presence of alcohol in blood, level not specified
CPT/HCPCS: 36415; 36416; 70450; 70551; 80053; 80061; 83036; 84443; 84484; 85025; 93005; 93880; G0378; J7050

== ENCOUNTER 2024-04-25 10:11 | Inpatient (IN) | payer OTHER ==
[2024-04-25 10:46] LABS: Hematocrit 32.7 % (42.0-52.0); Hemoglobin 10.7 g/dL (14.0-18.0); Mean Corpuscular HGB CONC 32.7 g/dL (32.0-36.0); Mean Corpuscular Hemoglobin 29.6 pg (27.0-31.0); Mean Corpuscular Volume 90.3 fL (78.0-98.0); Mean Platelet Volume 9.3 fL (7.4-10.4); Platelet Count 46 10x3/uL (130-400); Red Blood Cell (RBC) Count 3.62 mill/uL (4.70-6.10)
[2024-04-25 11:00] LABS: INR-International Normal Ratio 1.2; PTT 35.1 sec (22.9-36.1)
[2024-04-25 11:05] LABS: Lipase 49 U/L (8-78); Magnesium 1.7 mg/dL (1.6-2.6)
[2024-04-25 11:06] LABS: Acetaminophen Less than 10 mcg/mL (Less than 10); Alcohol Less than 10.0 mg/dL (Less than 10); Salicylate Less than 8.0 mg/dL (Less than 8.0)
[2024-04-25 11:07] LABS: ALT (SGPT) 17 U/L (8-55); AST (SGOT) 30 U/L (5-34); Albumin 2.5 g/dL (3.4-4.8); Alkaline Phosphatase 160 U/L (40-110); Anion Gap 13 mmol/L (10-20); BUN (Urea Nitrogen) 29 mg/dL (8.4-25.7); Bilirubin, Total 0.9 mg/dL (0.2-1.2); Calc. Creatinine Clearance 0 mL/min (70-130); Calcium 8.3 mg/dL (7.8-10.44); Carbon Dioxide 21 mmol/L (23-31); Chloride 107 mmol/L (98-107); Estimated GFR 37; Globulin 4.2 g/dL (2.4-3.5); Glucose 109 mg/dL (80-115); Potassium 4.4 mmol/L (3.5-5.1); Protein, Total 6.7 g/dL (5.8-8.1); Sodium 137 mmol/L (136-145)
[2024-04-25 11:10] LABS: Anisocytosis MARKED = >30 cells HPF (0-5); Macrocytosis MODERATE=16-30 cells HPF (0-5); Ovalocytes SLIGHT = 2-5 cells HPF (0-1); Platelet Adequacy Comment Significant Decrease; Polychromasia SLIGHT = 2-3 cells HPF (0-2)
[2024-04-25 11:13] LABS: #Basophils Less than 0.03 10x3/uL (0.0-0.2); %Basophils 0.6 % (0.0-1.0); %Eosinophils 2.6 % (0.0-10.0); %Lymphocytes 14.9 % (21.0-51.0); %Monocytes 9.4 % (0.0-10.0); %Neutrophils 72.1 % (42.0-75.0)
[2024-04-25] MEDS ORDERED: Lactulose 20 GM (30 mL) UDCUP ONE (11:46)
[2024-04-25] MEDS ORDERED: Insulin Lispro 100 UNIT/ML 10 ML VIAL SC PRN ×2 (12:20)
[2024-04-25] MEDS ORDERED: Glucagon 1 MG/ML KIT IM PRN (12:20)
[2024-04-25] MEDS ORDERED: Calcium Carbonate 500 MG ChewTAB PO PRN (12:20)
[2024-04-25] MEDS ORDERED: Dextrose 50% Abboject 50 ML SYRINGE SLOW IVP PRN (12:20)
[2024-04-25] MEDS ORDERED: Dextrose 5% in Water 1,000 ML IV PRN (12:20)
[2024-04-25] MEDS ORDERED: Guaifenesin DM 100-10/5 ML UDCUP PO PRN (12:20)
[2024-04-25 12:26] LABS: Bilirubin Negative (Negative); Blood, Urine 3+ (Negative); CAUTI Indications for Culture Alt mental st,lethar; Clarity Clear (Clear); Glucose, Urine (Dipstick) Normal (Negative); Ketone, Urine Negative (Negative); Leukocyte Negative Leu/uL (Negative); Nitrite Negative (Negative); Protein, Urine (Dipstick) 300 mg/dL (Neg-Trace); RBC/HPF Greater than 50 HPF (0-3); Specific Gravity, Urine 1.011 (1.002-1.036); Squamous Epithelial None Seen HPF (0-3); Urobilinogen Normal mg/dL (Less than 2); WBC/HPF 0-3 HPF (0-3); pH, Urine 6.5 (5.0-9.0)
[2024-04-25 12:27] LABS: Amphetamine Not Detected (NotDetected); Bacteria/HPF 1+ HPF (None Seen); Barbiturates Screen Not Detected (NotDetected); Benzodiazepine Screen Not Detected (NotDetected); Cocaine Metabolite Screen Not Detected (NotDetected); Methadone Not Detected (NotDetected); Methamphetamine Not Detected (NotDetected); Opiate Screen Not Detected (NotDetected); Oxycodone Screen Not Detected (NotDetected); Phencyclidine (PCP) Not Detected (NotDetected); THC/Cannabinoid Screen Not Detected (NotDetected); Tricyclic Screen Not Detected (NotDetected)
[2024-04-25 12:28] LABS: Urine Culture Reflex No No
[2024-04-25] MEDS: Lactulose 20 GM (30 mL) UDCUP PO SCH (14:49)
[2024-04-25 15:32] VITALS: BMI 31.6
[2024-04-25] MEDS: dilTIAZem 30 MG TAB PO SCH (15:58)
[2024-04-25] MEDS: Sodium Chloride 0.9% 1,000 ML IV SCH (15:58)
[2024-04-25] MEDS: Ondansetron PF 4 MG/2 ML Vial IVP PRN (16:18)
[2024-04-25] MEDS: Doxazosin 2 MG TAB PO SCH (20:42)
[2024-04-25] MEDS: Atorvastatin Calcium 40 MG TAB PO SCH (20:42)
[2024-04-25] MEDS: Pantoprazole DR 40 MG TAB PO SCH (20:42)
[2024-04-25] MEDS: Rifaximin 550 MG TAB PO SCH (20:43)
[2024-04-26 05:13] LABS: #Basophils 0.03 10x3/uL (0.0-0.2); #Eosinophils Less than 0.03 10x3/uL (0.0-0.7); %Basophils 0.5 % (0.0-1.0); %Eosinophils 0.4 % (0.0-10.0); %Lymphocytes 7.2 % (21.0-51.0); %Monocytes 7.5 % (0.0-10.0); %Neutrophils 83.9 % (42.0-75.0); Hematocrit 30.4 % (42.0-52.0); Hemoglobin 9.9 g/dL (14.0-18.0); Mean Corpuscular HGB CONC 32.6 g/dL (32.0-36.0); Mean Corpuscular Hemoglobin 28.3 pg (27.0-31.0); Mean Corpuscular Volume 86.9 fL (78.0-98.0); Mean Platelet Volume 8.7 fL (7.4-10.4); Platelet Count 48 10x3/uL (130-400); RBC Distribution Width 17.2 % (11.5-14.5)
[2024-04-26 06:03] LABS: ALT (SGPT) 16 U/L (8-55); AST (SGOT) 24 U/L (5-34); Albumin 2.3 g/dL (3.4-4.8); Alkaline Phosphatase 136 U/L (40-110); Anion Gap 12 mmol/L (10-20); BUN (Urea Nitrogen) 27 mg/dL (8.4-25.7); Bilirubin, Total 0.9 mg/dL (0.2-1.2); Calc. Creatinine Clearance 52 mL/min (70-130); Calcium 7.9 mg/dL (7.8-10.44); Carbon Dioxide 17 mmol/L (23-31); Chloride 112 mmol/L (98-107); Estimated GFR 45; Globulin 3.9 g/dL (2.4-3.5); Glucose 119 mg/dL (80-115); Potassium 3.7 mmol/L (3.5-5.1); Protein, Total 6.2 g/dL (5.8-8.1); Sodium 137 mmol/L (136-145)
[2024-04-26] MEDS: Aspirin 81 mg Enteric Coated Tablet PO SCH (09:20)
[2024-04-26] MEDS: FLUoxetine HCl 20 MG CAP PO SCH (09:20)
[2024-04-26] MEDS: Metoprolol Tartrate 25 MG TAB PO SCH (20:45)
[2024-04-27 06:38] LABS: #Basophils Less than 0.03 10x3/uL (0.0-0.2); %Basophils 0.3 % (0.0-1.0); %Eosinophils 1.8 % (0.0-10.0); %Lymphocytes 6.4 % (21.0-51.0); %Monocytes 8.8 % (0.0-10.0); %Neutrophils 82.1 % (42.0-75.0); Hemoglobin 10.7 g/dL (14.0-18.0); Mean Corpuscular HGB CONC 32.4 g/dL (32.0-36.0); Mean Corpuscular Hemoglobin 29.4 pg (27.0-31.0); Mean Corpuscular Volume 90.7 fL (78.0-98.0); Mean Platelet Volume 8.9 fL (7.4-10.4); Platelet Count 59 10x3/uL (130-400); RBC Distribution Width 17.9 % (11.5-14.5); Red Blood Cell (RBC) Count 3.64 mill/uL (4.70-6.10)
[2024-04-27 06:43] LABS: ALT (SGPT) 16 U/L (8-55); AST (SGOT) 23 U/L (5-34); Albumin 2.4 g/dL (3.4-4.8); Alkaline Phosphatase 131 U/L (40-110); Anion Gap 10 mmol/L (10-20); BUN (Urea Nitrogen) 24 mg/dL (8.4-25.7); Calc. Creatinine Clearance 46 mL/min (70-130); Carbon Dioxide 19 mmol/L (23-31); Chloride 113 mmol/L (98-107); Estimated GFR 39; Globulin 4.1 g/dL (2.4-3.5); Glucose 130 mg/dL (80-115); Potassium 3.5 mmol/L (3.5-5.1); Protein, Total 6.5 g/dL (5.8-8.1); Sodium 138 mmol/L (136-145)
[2024-04-27] MEDS: Sodium Chloride 0.9% 1,000 ML IV SCH (09:39)
[2024-04-27] MEDS: Metoprolol Tartrate 25 MG TAB PO SCH ×2 (13:41→21:06)
[2024-04-28 06:23] LABS: #Basophils Less than 0.03 10x3/uL (0.0-0.2); %Basophils 0.3 % (0.0-1.0); %Eosinophils 5.2 % (0.0-10.0); %Lymphocytes 8.8 % (21.0-51.0); %Monocytes 9.2 % (0.0-10.0); %Neutrophils 75.9 % (42.0-75.0); Hematocrit 32.7 % (42.0-52.0); Hemoglobin 10.8 g/dL (14.0-18.0); Mean Corpuscular Hemoglobin 29.1 pg (27.0-31.0); Mean Corpuscular Volume 88.1 fL (78.0-98.0); Mean Platelet Volume 8.9 fL (7.4-10.4); Platelet Count 63 10x3/uL (130-400); Red Blood Cell (RBC) Count 3.71 mill/uL (4.70-6.10)
[2024-04-28 07:15] LABS: ALT (SGPT) 13 U/L (8-55); AST (SGOT) 18 U/L (5-34); Albumin 2.2 g/dL (3.4-4.8); Alkaline Phosphatase 120 U/L (40-110); Anion Gap 9 mmol/L (10-20); BUN (Urea Nitrogen) 22 mg/dL (8.4-25.7); Calc. Creatinine Clearance 42 mL/min (70-130); Calcium 7.8 mg/dL (7.8-10.44); Carbon Dioxide 16 mmol/L (23-31); Chloride 119 mmol/L (98-107); Estimated GFR 35; Globulin 3.9 g/dL (2.4-3.5); Glucose 114 mg/dL (80-115); Potassium 3.2 mmol/L (3.5-5.1); Protein, Total 6.1 g/dL (5.8-8.1); Sodium 141 mmol/L (136-145)
[2024-04-28] MEDS: FLU (Fluad Triv) TS24-25 (65UP)/MF59C/PF 45 MCG/0.5 ML Syringe IM ONE (08:31)
[2024-04-29 06:13] LABS: ALT (SGPT) 14 U/L (8-55); AST (SGOT) 20 U/L (5-34); Albumin 2.2 g/dL (3.4-4.8); Alkaline Phosphatase 113 U/L (40-110); Anion Gap 11 mmol/L (10-20); BUN (Urea Nitrogen) 22 mg/dL (8.4-25.7); Calc. Creatinine Clearance 36 mL/min (70-130); Calcium 7.9 mg/dL (7.8-10.44); Carbon Dioxide 15 mmol/L (23-31); Chloride 119 mmol/L (98-107); Estimated GFR 29; Globulin 3.9 g/dL (2.4-3.5); Glucose 122 mg/dL (80-115); Potassium 2.9 mmol/L (3.5-5.1); Protein, Total 6.1 g/dL (5.8-8.1); Sodium 142 mmol/L (136-145)
[2024-04-29 07:24] LABS: #Basophils Less than 0.03 10x3/uL (0.0-0.2); %Basophils 0.4 % (0.0-1.0); %Eosinophils 5.8 % (0.0-10.0); %Lymphocytes 10.8 % (21.0-51.0); %Monocytes 10.6 % (0.0-10.0); %Neutrophils 71.9 % (42.0-75.0); Hematocrit 33.2 % (42.0-52.0); Hemoglobin 10.6 g/dL (14.0-18.0); Mean Corpuscular HGB CONC 31.9 g/dL (32.0-36.0); Mean Corpuscular Hemoglobin 29.4 pg (27.0-31.0); Mean Platelet Volume 9.3 fL (7.4-10.4); Platelet Count 67 10x3/uL (130-400); RBC Distribution Width 18.2 % (11.5-14.5); Red Blood Cell (RBC) Count 3.61 mill/uL (4.70-6.10)
[2024-04-29] MEDS: Lactulose 20 GM (30 mL) UDCUP PO SCH (08:34)
[2024-04-29] MEDS ORDERED: Electrolyte Replacement Protocol 1 EACH FS SCH (09:45)
[2024-04-29] MEDS: Potassium Chloride 20 MEQ TAB PO SCH ×2 (12:04→15:59)
[2024-04-29] MEDS: Lactated Ringer's 1,000 ML IV SCH (14:34)
[2024-04-29] MEDS: Sodium Bicarbonate Tab 325 MG TAB PO SCH (20:05)
[2024-04-30 07:34] LABS: #Basophils Less than 0.03 10x3/uL (0.0-0.2); %Basophils 0.5 % (0.0-1.0); %Eosinophils 7.5 % (0.0-10.0); %Lymphocytes 15.4 % (21.0-51.0); %Monocytes 9.4 % (0.0-10.0); %Neutrophils 66.7 % (42.0-75.0); Hematocrit 30.1 % (42.0-52.0); Hemoglobin 9.7 g/dL (14.0-18.0); Mean Corpuscular HGB CONC 32.2 g/dL (32.0-36.0); Mean Corpuscular Hemoglobin 29.1 pg (27.0-31.0); Mean Corpuscular Volume 90.4 fL (78.0-98.0); Platelet Count 61 10x3/uL (130-400); RBC Distribution Width 18.2 % (11.5-14.5); Red Blood Cell (RBC) Count 3.33 mill/uL (4.70-6.10)
[2024-04-30 08:05] LABS: ALT (SGPT) 13 U/L (8-55); AST (SGOT) 19 U/L (5-34); Alkaline Phosphatase 106 U/L (40-110); Anion Gap 6 mmol/L (10-20); BUN (Urea Nitrogen) 20 mg/dL (8.4-25.7); Bilirubin, Total 0.7 mg/dL (0.2-1.2); Calc. Creatinine Clearance 35 mL/min (70-130); Calcium 7.5 mg/dL (7.8-10.44); Carbon Dioxide 16 mmol/L (23-31); Chloride 119 mmol/L (98-107); Estimated GFR 28; Globulin 3.3 g/dL (2.4-3.5); Glucose 93 mg/dL (80-115); Potassium 3.5 mmol/L (3.5-5.1); Protein, Total 5.3 g/dL (5.8-8.1); Sodium 137 mmol/L (136-145)
[2024-04-30] MEDS: Sodium Chloride 0.9% 1,000 ML IV SCH (10:32)
[2024-04-30] MEDS ORDERED: Lactated Ringer's 1,000 ML IV SCH (13:15)
[2024-04-30] MEDS: Albumin 25% 25 GM (100 mL) BOT IVPB SCH (14:39)
[2024-04-30] MEDS: Sodium Bicarbonate 150 MEQ in Sterile Water 1,000 ML IV SCH (16:21)
[2024-05-01 05:09] LABS: #Basophils Less than 0.03 10x3/uL (0.0-0.2); %Basophils 0.6 % (0.0-1.0); %Eosinophils 5.7 % (0.0-10.0); %Lymphocytes 14.5 % (21.0-51.0); %Monocytes 9.7 % (0.0-10.0); %Neutrophils 68.9 % (42.0-75.0); Hematocrit 26.7 % (42.0-52.0); Hemoglobin 8.7 g/dL (14.0-18.0); Mean Corpuscular HGB CONC 32.6 g/dL (32.0-36.0); Mean Corpuscular Hemoglobin 29.4 pg (27.0-31.0); Mean Corpuscular Volume 90.2 fL (78.0-98.0); Mean Platelet Volume 8.2 fL (7.4-10.4); Platelet Count 53 10x3/uL (130-400); RBC Distribution Width 18.1 % (11.5-14.5); Red Blood Cell (RBC) Count 2.96 mill/uL (4.70-6.10)
[2024-05-01 05:13] LABS: ALT (SGPT) 12 U/L (8-55); AST (SGOT) 19 U/L (5-34); Albumin 2.9 g/dL (3.4-4.8); Alkaline Phosphatase 97 U/L (40-110); Anion Gap 9 mmol/L (10-20); BUN (Urea Nitrogen) 19 mg/dL (8.4-25.7); Bilirubin, Total 0.9 mg/dL (0.2-1.2); Calc. Creatinine Clearance 36 mL/min (70-130); Calcium 7.6 mg/dL (7.8-10.44); Carbon Dioxide 17 mmol/L (23-31); Chloride 114 mmol/L (98-107); Estimated GFR 29; Globulin 2.7 g/dL (2.4-3.5); Glucose 91 mg/dL (80-115); Potassium 3.3 mmol/L (3.5-5.1); Protein, Total 5.6 g/dL (5.8-8.1); Sodium 137 mmol/L (136-145)
[2024-05-01] MEDS ORDERED: Potassium Chloride 20 MEQ in Premix 1 BAG IVPB SCH (10:15)
[2024-05-01] MEDS: Albumin 25% 25 GM (100 mL) BOT IVPB SCH ×2 (11:17→12:57)
[2024-05-01] MEDS ORDERED: Pantoprazole 40 MG VIAL IVP SCH (12:19)
[2024-05-01] MEDS: Pantoprazole 40 MG VIAL IVP SCH ×2 (12:57→20:13)
[2024-05-01 13:25] LABS: Hematocrit 27.4 % (42.0-52.0)
[2024-05-01 14:27] VITALS: BMI 31.6
[2024-05-01 21:20] LABS: Hemoglobin 8.6 g/dL (14.0-18.0); Platelet Count 54 10x3/uL (130-400)
[2024-05-02 02:33] LABS: Hematocrit 28.8 % (42.0-52.0); Hemoglobin 9.1 g/dL (14.0-18.0); Platelet Count 58 10x3/uL (130-400)
[2024-05-02 05:56] LABS: #Basophils Less than 0.03 10x3/uL (0.0-0.2); %Basophils 0.6 % (0.0-1.0); %Eosinophils 5.4 % (0.0-10.0); %Lymphocytes 13.6 % (21.0-51.0); %Monocytes 9.3 % (0.0-10.0); %Neutrophils 70.5 % (42.0-75.0); Hematocrit 23.8 % (42.0-52.0); Hemoglobin 7.9 g/dL (14.0-18.0); Mean Corpuscular HGB CONC 33.2 g/dL (32.0-36.0); Mean Corpuscular Hemoglobin 28.7 pg (27.0-31.0); Mean Corpuscular Volume 86.5 fL (78.0-98.0); Mean Platelet Volume 8.7 fL (7.4-10.4); Platelet Count 45 10x3/uL (130-400); RBC Distribution Width 18.1 % (11.5-14.5); Red Blood Cell (RBC) Count 2.75 mill/uL (4.70-6.10)
[2024-05-02 06:05] LABS: ALT (SGPT) 11 U/L (8-55); AST (SGOT) 17 U/L (5-34); Albumin 3.5 g/dL (3.4-4.8); Alkaline Phosphatase 80 U/L (40-110); Anion Gap 8 mmol/L (10-20); BUN (Urea Nitrogen) 16 mg/dL (8.4-25.7); Bilirubin, Total 1.2 mg/dL (0.2-1.2); Calc. Creatinine Clearance 43 mL/min (70-130); Calcium 7.9 mg/dL (7.8-10.44); Carbon Dioxide 16 mmol/L (23-31); Chloride 119 mmol/L (98-107); Estimated GFR 36; Globulin 2.1 g/dL (2.4-3.5); Glucose 83 mg/dL (80-115); Potassium 3.3 mmol/L (3.5-5.1); Protein, Total 5.6 g/dL (5.8-8.1); Sodium 140 mmol/L (136-145)
[2024-05-02] MEDS ORDERED: PROPOFOL 20 ML ONE (08:37)
[2024-05-02] MEDS ORDERED: Ketamine In 0.9 % NaCl 50 MG/5 ML SYRINGE ONE (08:37)
[2024-05-02 08:45] LABS: Hemoglobin 8.1 g/dL (14.0-18.0); Platelet Count 50 10x3/uL (130-400)
[2024-05-02 17:20] LABS: Hematocrit 25.1 % (42.0-52.0); Platelet Count 56 10x3/uL (130-400)
[2024-05-02] MEDS ORDERED: Heparin 1,000 UNITS/ML VIAL ONE (17:38)
[2024-05-02 21:44] LABS: Hematocrit 27.9 % (42.0-52.0); Hemoglobin 8.5 g/dL (14.0-18.0); Platelet Count 65 10x3/uL (130-400)
[2024-05-03] MEDS: GoLYTELY 4,000 ml Bottle PO SCH (00:28)
[2024-05-03 03:48] LABS: #Basophils 0.04 10x3/uL (0.0-0.2); %Basophils 0.6 % (0.0-1.0); %Eosinophils 4.5 % (0.0-10.0); %Lymphocytes 12.5 % (21.0-51.0); %Monocytes 9.6 % (0.0-10.0); %Neutrophils 72.5 % (42.0-75.0); Hematocrit 26.4 % (42.0-52.0); Hemoglobin 8.3 g/dL (14.0-18.0); Mean Corpuscular HGB CONC 31.4 g/dL (32.0-36.0); Mean Corpuscular Hemoglobin 28.9 pg (27.0-31.0); Mean Platelet Volume 8.7 fL (7.4-10.4); Platelet Count 76 10x3/uL (130-400); RBC Distribution Width 18.5 % (11.5-14.5); Red Blood Cell (RBC) Count 2.87 mill/uL (4.70-6.10)
[2024-05-03 04:00] LABS: ALT (SGPT) 11 U/L (8-55); AST (SGOT) 18 U/L (5-34); Albumin 3.6 g/dL (3.4-4.8); Alkaline Phosphatase 95 U/L (40-110); Anion Gap 12 mmol/L (10-20); BUN (Urea Nitrogen) 15 mg/dL (8.4-25.7); Calc. Creatinine Clearance 43 mL/min (70-130); Calcium 8.3 mg/dL (7.8-10.44); Carbon Dioxide 12 mmol/L (23-31); Chloride 120 mmol/L (98-107); Estimated GFR 36; Globulin 2.4 g/dL (2.4-3.5); Glucose 104 mg/dL (80-115); Potassium 4.1 mmol/L (3.5-5.1); Sodium 140 mmol/L (136-145)
[2024-05-03 09:53] LABS: Hematocrit 24.4 % (42.0-52.0); Hemoglobin 8.3 g/dL (14.0-18.0); Platelet Count 55 10x3/uL (130-400)
[2024-05-03] MEDS ORDERED: PHENYLEPHRINE-NS 100 MCG/ML 10 ML SYRINGE ONE (12:08)
[2024-05-03] MEDS ORDERED: Lidocaine 1% PF 5 ML VIAL ONE (12:08)
[2024-05-03] MEDS ORDERED: Lidocaine 2% PF 5 ML VIAL ONE (12:08)
[2024-05-03] MEDS ORDERED: PROPOFOL 40 ML ONE (12:08)
[2024-05-04 04:25] LABS: #Basophils 0.03 10x3/uL (0.0-0.2); %Basophils 0.6 % (0.0-1.0); %Lymphocytes 14.8 % (21.0-51.0); %Monocytes 10.4 % (0.0-10.0); %Neutrophils 68.8 % (42.0-75.0); Hematocrit 22.5 % (42.0-52.0); Hemoglobin 7.1 g/dL (14.0-18.0); Mean Corpuscular HGB CONC 31.6 g/dL (32.0-36.0); Mean Corpuscular Hemoglobin 29.3 pg (27.0-31.0); Platelet Count 61 10x3/uL (130-400); RBC Distribution Width 18.7 % (11.5-14.5); Red Blood Cell (RBC) Count 2.42 mill/uL (4.70-6.10)
[2024-05-04 04:43] LABS: ALT (SGPT) 12 U/L (8-55); AST (SGOT) 20 U/L (5-34); Albumin 3.1 g/dL (3.4-4.8); Alkaline Phosphatase 97 U/L (40-110); Anion Gap 9 mmol/L (10-20); BUN (Urea Nitrogen) 15 mg/dL (8.4-25.7); Bilirubin, Total 0.7 mg/dL (0.2-1.2); Calc. Creatinine Clearance 44 mL/min (70-130); Calcium 7.9 mg/dL (7.8-10.44); Carbon Dioxide 15 mmol/L (23-31); Chloride 122 mmol/L (98-107); Estimated GFR 37; Globulin 2.2 g/dL (2.4-3.5); Glucose 118 mg/dL (80-115); Potassium 4.3 mmol/L (3.5-5.1); Protein, Total 5.3 g/dL (5.8-8.1); Sodium 142 mmol/L (136-145)
[2024-05-04 10:04] LABS: #Basophils 0.05 10x3/uL (0.0-0.2); %Basophils 0.9 % (0.0-1.0); %Eosinophils 4.9 % (0.0-10.0); %Lymphocytes 14.1 % (21.0-51.0); %Monocytes 8.3 % (0.0-10.0); %Neutrophils 71.3 % (42.0-75.0); Hemoglobin 7.4 g/dL (14.0-18.0); Mean Corpuscular HGB CONC 32.2 g/dL (32.0-36.0); Mean Corpuscular Hemoglobin 29.4 pg (27.0-31.0); Mean Corpuscular Volume 91.3 fL (78.0-98.0); Mean Platelet Volume 8.8 fL (7.4-10.4); Platelet Count 61 10x3/uL (130-400); RBC Distribution Width 19.1 % (11.5-14.5); Red Blood Cell (RBC) Count 2.52 mill/uL (4.70-6.10)
[2024-05-05 05:10] LABS: #Basophils 0.04 10x3/uL (0.0-0.2); %Basophils 0.7 % (0.0-1.0); %Eosinophils 5.5 % (0.0-10.0); %Lymphocytes 16.7 % (21.0-51.0); %Monocytes 10.9 % (0.0-10.0); %Neutrophils 65.8 % (42.0-75.0); Hematocrit 21.4 % (42.0-52.0); Hemoglobin 6.9 g/dL (14.0-18.0); Mean Corpuscular HGB CONC 32.2 g/dL (32.0-36.0); Mean Corpuscular Volume 89.9 fL (78.0-98.0); Mean Platelet Volume 9.8 fL (7.4-10.4); Platelet Count 59 10x3/uL (130-400); RBC Distribution Width 18.8 % (11.5-14.5); Red Blood Cell (RBC) Count 2.38 mill/uL (4.70-6.10)
[2024-05-05 05:12] LABS: ALT (SGPT) 17 U/L (8-55); AST (SGOT) 27 U/L (5-34); Albumin 2.9 g/dL (3.4-4.8); Alkaline Phosphatase 111 U/L (40-110); Anion Gap 8 mmol/L (10-20); BUN (Urea Nitrogen) 13 mg/dL (8.4-25.7); Bilirubin, Total 0.9 mg/dL (0.2-1.2); Calc. Creatinine Clearance 44 mL/min (70-130); Calcium 7.8 mg/dL (7.8-10.44); Carbon Dioxide 15 mmol/L (23-31); Chloride 121 mmol/L (98-107); Estimated GFR 37; Globulin 2.4 g/dL (2.4-3.5); Glucose 87 mg/dL (80-115); Potassium 4.2 mmol/L (3.5-5.1); Protein, Total 5.3 g/dL (5.8-8.1); Sodium 140 mmol/L (136-145)
[2024-05-05] MEDS: Potassium Bicarbonate/Cit Ac 20 MEQ TAB PO SCH (13:00)
[2024-05-06 04:55] LABS: ALT (SGPT) 16 U/L (8-55); AST (SGOT) 24 U/L (5-34); Albumin 2.9 g/dL (3.4-4.8); Alkaline Phosphatase 116 U/L (40-110); Anion Gap 9 mmol/L (10-20); BUN (Urea Nitrogen) 12 mg/dL (8.4-25.7); Bilirubin, Total 1.1 mg/dL (0.2-1.2); Calc. Creatinine Clearance 46 mL/min (70-130); Calcium 7.8 mg/dL (7.8-10.44); Carbon Dioxide 15 mmol/L (23-31); Chloride 118 mmol/L (98-107); Estimated GFR 38; Globulin 2.4 g/dL (2.4-3.5); Glucose 99 mg/dL (80-115); Magnesium 1.9 mg/dL (1.6-2.6); Potassium 3.9 mmol/L (3.5-5.1); Protein, Total 5.3 g/dL (5.8-8.1); Sodium 138 mmol/L (136-145)
[2024-05-06 05:21] LABS: #Basophils 0.03 10x3/uL (0.0-0.2); %Basophils 0.6 % (0.0-1.0); %Eosinophils 4.3 % (0.0-10.0); %Lymphocytes 15.9 % (21.0-51.0); %Monocytes 12.2 % (0.0-10.0); %Neutrophils 66.6 % (42.0-75.0); Hematocrit 23.5 % (42.0-52.0); Hemoglobin 7.8 g/dL (14.0-18.0); Mean Corpuscular HGB CONC 33.2 g/dL (32.0-36.0); Mean Corpuscular Hemoglobin 28.8 pg (27.0-31.0); Mean Corpuscular Volume 86.7 fL (78.0-98.0); Mean Platelet Volume 8.8 fL (7.4-10.4); Platelet Count 50 10x3/uL (130-400); RBC Distribution Width 18.3 % (11.5-14.5); Red Blood Cell (RBC) Count 2.71 mill/uL (4.70-6.10)
[2024-05-06] MEDS ORDERED: Albumin 25% 25 GM (100 mL) BOT IVPB SCH (12:00)
[2024-05-06] MEDS: Rifaximin 550 MG TAB PO SCH (20:22)
[2024-05-07 05:08] LABS: #Basophils 0.05 10x3/uL (0.0-0.2); %Basophils 1.1 % (0.0-1.0); %Eosinophils 5.5 % (0.0-10.0); %Lymphocytes 15.6 % (21.0-51.0); %Monocytes 12.2 % (0.0-10.0); %Neutrophils 65.4 % (42.0-75.0); Hematocrit 24.1 % (42.0-52.0); Mean Corpuscular HGB CONC 33.2 g/dL (32.0-36.0); Mean Corpuscular Hemoglobin 28.7 pg (27.0-31.0); Mean Corpuscular Volume 86.4 fL (78.0-98.0); Mean Platelet Volume 8.9 fL (7.4-10.4); Platelet Count 50 10x3/uL (130-400); RBC Distribution Width 18.3 % (11.5-14.5); Red Blood Cell (RBC) Count 2.79 mill/uL (4.70-6.10)
[2024-05-07 05:15] LABS: Anion Gap 9 mmol/L (10-20); BUN (Urea Nitrogen) 13 mg/dL (8.4-25.7); Calc. Creatinine Clearance 46 mL/min (70-130); Calcium 7.8 mg/dL (7.8-10.44); Carbon Dioxide 15 mmol/L (23-31); Chloride 117 mmol/L (98-107); Estimated GFR 39; Glucose 99 mg/dL (80-115); Potassium 3.8 mmol/L (3.5-5.1); Sodium 137 mmol/L (136-145)
[2024-05-07 16:00] VITALS: BP 125/72; TEMP 97.6
== END 2024-05-07 18:03 | disposition home or self-care (01) | DRG 441 ==
LOC: ERS 10:11 → T4-A 12:07 → IMCU/EMU 05-02 22:46 → T4-B 05-04 17:09
PROVIDERS: ADMIT Internal Medicine; ATTEND Internal Medicine
PROC: 0DJ08ZZ Inspection of Upper Intestinal Tract, Via Natural or Artificial Opening Endoscopic (ICD-10-PCS; principal; 2024-05-02)
PROC: 0DJD8ZZ Inspection of Lower Intestinal Tract, Via Natural or Artificial Opening Endoscopic (ICD-10-PCS; 2024-05-03)
DX: K76.82 Hepatic encephalopathy (principal); G92.8 Other toxic encephalopathy; C22.0 Liver cell carcinoma; I50.22 Chronic systolic (congestive) heart failure; N17.9 Acute kidney failure, unspecified; E87.20 Acidosis, unspecified; I13.0 Hypertensive heart and chronic kidney disease with heart failure and stage 1 through stage 4 chronic kidney disease, or unspecified chronic kidney disease; K76.6 Portal hypertension; D62 Acute posthemorrhagic anemia; I25.10 Atherosclerotic heart disease of native coronary artery without angina pectoris; I48.91 Unspecified atrial fibrillation; K21.9 Gastro-esophageal reflux disease without esophagitis; N40.0 Benign prostatic hyperplasia without lower urinary tract symptoms; K74.60 Unspecified cirrhosis of liver; K72.10 Chronic hepatic failure without coma; E87.6 Hypokalemia; N18.30 Chronic kidney disease, stage 3 unspecified; E11.22 Type 2 diabetes mellitus with diabetic chronic kidney disease; K31.819 Angiodysplasia of stomach and duodenum without bleeding; K31.89 Other diseases of stomach and duodenum; E88.09 Other disorders of plasma-protein metabolism, not elsewhere classified; E83.42 Hypomagnesemia; Z86.73 Personal history of transient ischemic attack (TIA), and cerebral infarction without residual deficits; Z98.890 Other specified postprocedural states; Z87.891 Personal history of nicotine dependence; Z79.82 Long term (current) use of aspirin; Z79.899 Other long term (current) drug therapy
CPT/HCPCS: 36415; 36416; 36430; 70450; 71045; 74176; 76705; 78278; 80048; 80053; 80306; 80307; 81001; 82140; 83690; 83735; 84443; 85025; 85610; 85730; 86850; 86900; 86901; 93005; 97139; A4217; A9560; J1644; J1815; J2405; J2470; J2704; J3490; J7030; J7120; P9016; P9047

== ENCOUNTER 2024-05-13 15:17 | Inpatient (IN) | payer OTHER, MEDICARE ==
[2024-05-13 17:12] LABS: #Basophils 0.03 10x3/uL (0.0-0.2); %Basophils 0.7 % (0.0-1.0); %Eosinophils 4.1 % (0.0-10.0); %Lymphocytes 11.8 % (21.0-51.0); %Monocytes 9.9 % (0.0-10.0); %Neutrophils 73.3 % (42.0-75.0); Hematocrit 23.2 % (42.0-52.0); Hemoglobin 7.5 g/dL (14.0-18.0); Mean Corpuscular HGB CONC 32.3 g/dL (32.0-36.0); Mean Corpuscular Hemoglobin 29.8 pg (27.0-31.0); Mean Corpuscular Volume 92.1 fL (78.0-98.0); Mean Platelet Volume 8.8 fL (7.4-10.4); Platelet Count 49 10x3/uL (130-400); RBC Distribution Width 19.2 % (11.5-14.5); Red Blood Cell (RBC) Count 2.52 mill/uL (4.70-6.10)
[2024-05-13 17:14] LABS: Troponin I 0.022 ng/mL (< 0.028)
[2024-05-13 17:22] LABS: ALT (SGPT) 16 U/L (8-55); AST (SGOT) 25 U/L (5-34); Albumin 2.9 g/dL (3.4-4.8); Alkaline Phosphatase 158 U/L (40-110); Anion Gap 10 mmol/L (10-20); BUN (Urea Nitrogen) 19 mg/dL (8.4-25.7); Calc. Creatinine Clearance 0 mL/min (70-130); Carbon Dioxide 15 mmol/L (23-31); Chloride 116 mmol/L (98-107); Estimated GFR 31; Globulin 3.2 g/dL (2.4-3.5); Glucose 103 mg/dL (80-115); Lipase 23 U/L (8-78); Magnesium 2.2 mg/dL (1.6-2.6); Potassium 6.6 mmol/L (3.5-5.1); Protein, Total 6.1 g/dL (5.8-8.1); Sodium 134 mmol/L (136-145)
[2024-05-13] MEDS ORDERED: Ondansetron PF 4 MG/2 ML Vial ONE (17:55)
[2024-05-13] MEDS ORDERED: Albuterol 2.5 MG (3 mL) NEB ONE (17:55)
[2024-05-13] MEDS ORDERED: Sodium Bicarb 50 mEq/50 ML VIAL ONE (17:55)
[2024-05-13] MEDS ORDERED: CALCIUM GLUC 1 GM/NS 50 ML IV Bag ONE (17:56)
[2024-05-13] MEDS ORDERED: Lactulose 20 GM (30 mL) UDCUP ONE ×2 (17:56→21:47)
[2024-05-13] MEDS ORDERED: Ondansetron PF 4 MG/2 ML Vial IVP PRN (19:15)
[2024-05-13] MEDS ORDERED: Acetaminophen 325 MG TAB PO PRN (19:15)
[2024-05-13 21:23] LABS: Bacteria/HPF None Seen HPF (None Seen); Bilirubin Negative (Negative); Blood, Urine 3+ (Negative); CAUTI Indications for Culture Pelvic or flank pain; Clarity Clear (Clear); Glucose, Urine (Dipstick) 50 mg/dL (Negative); Ketone, Urine Negative (Negative); Leukocyte 250 Leu/uL (Negative); Nitrite Negative (Negative); Protein, Urine (Dipstick) 300 mg/dL (Neg-Trace); RBC/HPF 21-50 HPF (0-3); Specific Gravity, Urine 1.004 (1.002-1.036); Squamous Epithelial None Seen HPF (0-3); Urobilinogen Normal mg/dL (Less than 2); WBC/HPF 21-50 HPF (0-3)
[2024-05-13 21:25] LABS: Urine Culture Reflex Yes Yes
[2024-05-13] MEDS: LOKELMA 10 GM PACKET PO SCH (21:41)
[2024-05-13] MEDS ORDERED: Furosemide 40 MG (4 mL) VIAL ONE (21:46)
[2024-05-13] MEDS ORDERED: Metoprolol Tartrate 25 MG TAB ONE (21:46)
[2024-05-13] MEDS ORDERED: Heparin 5,000 UNITS/ML VIAL ONE (21:47)
[2024-05-13] MEDS ORDERED: Sodium Bicarbonate Tab 325 MG TAB ONE (21:47)
[2024-05-13] MEDS: dilTIAZem 30 MG TAB PO SCH (21:58)
[2024-05-13] MEDS: Furosemide 40 MG (4 mL) VIAL SLOW IVP SCH (21:58)
[2024-05-13] MEDS: Heparin 5,000 UNITS/ML VIAL SC SCH (21:59)
[2024-05-13] MEDS: Lactulose 20 GM (30 mL) UDCUP PO SCH (21:59)
[2024-05-13] MEDS: Metoprolol Tartrate 25 MG TAB PO SCH (21:59)
[2024-05-13] MEDS: Rifaximin 550 MG TAB PO SCH (22:13)
[2024-05-13] MEDS: Sodium Bicarbonate Tab 325 MG TAB PO SCH (22:14)
[2024-05-14 07:12] LABS: #Basophils Less than 0.03 10x3/uL (0.0-0.2); %Basophils 0.4 % (0.0-1.0); %Lymphocytes 15.8 % (21.0-51.0); %Monocytes 10.4 % (0.0-10.0); %Neutrophils 69.4 % (42.0-75.0); Hematocrit 26.7 % (42.0-52.0); Mean Corpuscular Hemoglobin 28.9 pg (27.0-31.0); Mean Corpuscular Volume 96.4 fL (78.0-98.0); Mean Platelet Volume 9.4 fL (7.4-10.4); Platelet Count 48 10x3/uL (130-400); RBC Distribution Width 19.5 % (11.5-14.5); Red Blood Cell (RBC) Count 2.77 mill/uL (4.70-6.10)
[2024-05-14 07:15] LABS: ALT (SGPT) 15 U/L (8-55); AST (SGOT) 23 U/L (5-34); Albumin 2.9 g/dL (3.4-4.8); Alkaline Phosphatase 146 U/L (40-110); Anion Gap 10 mmol/L (10-20); BUN (Urea Nitrogen) 17 mg/dL (8.4-25.7); Bilirubin, Total 1.1 mg/dL (0.2-1.2); Calc. Creatinine Clearance 0 mL/min (70-130); Calcium 8.3 mg/dL (7.8-10.44); Carbon Dioxide 14 mmol/L (23-31); Chloride 117 mmol/L (98-107); Estimated GFR 34; Globulin 3.2 g/dL (2.4-3.5); Glucose 86 mg/dL (80-115); Potassium 4.8 mmol/L (3.5-5.1); Protein, Total 6.1 g/dL (5.8-8.1); Sodium 136 mmol/L (136-145)
[2024-05-14] MEDS ORDERED: Lactulose 20 GM (30 mL) UDCUP ONE (09:40)
[2024-05-14] MEDS ORDERED: Metoprolol Tartrate 25 MG TAB ONE (09:41)
[2024-05-14] MEDS ORDERED: Dextrose 50% Abboject 50 ML SYRINGE SLOW IVP PRN (12:40)
[2024-05-14] MEDS ORDERED: Insulin Lispro 100 UNIT/ML 10 ML VIAL SC PRN (12:40)
[2024-05-14] MEDS ORDERED: Dextrose 5% in Water 1,000 ML IV PRN (12:40)
[2024-05-14] MEDS ORDERED: Glucagon 1 MG/ML KIT IM PRN (12:40)
[2024-05-14] MEDS ORDERED: Cefepime 1 GM VIAL ONE (14:00)
[2024-05-14] MEDS ORDERED: Sodium Chloride 0.9% 100 ML ONE (14:00)
[2024-05-14] MEDS: Cefepime 2 GM in Sodium Chloride 0.9% 100 ML IVPB SCH (14:25)
[2024-05-14 16:48] VITALS: BMI 29.6
[2024-05-14] MEDS: Doxazosin 2 MG TAB PO SCH (21:50)
[2024-05-15 05:33] LABS: Anion Gap 9 mmol/L (10-20); BUN (Urea Nitrogen) 17 mg/dL (8.4-25.7); Calc. Creatinine Clearance 41 mL/min (70-130); Calcium 7.9 mg/dL (7.8-10.44); Carbon Dioxide 17 mmol/L (23-31); Chloride 117 mmol/L (98-107); Estimated GFR 32; Glucose 106 mg/dL (80-115); Potassium 4.1 mmol/L (3.5-5.1); Sodium 139 mmol/L (136-145)
[2024-05-15 05:56] LABS: #Basophils Less than 0.03 10x3/uL (0.0-0.2); %Basophils 0.3 % (0.0-1.0); %Eosinophils 4.9 % (0.0-10.0); %Lymphocytes 11.7 % (21.0-51.0); %Neutrophils 70.8 % (42.0-75.0); Hematocrit 23.5 % (42.0-52.0); Hemoglobin 7.5 g/dL (14.0-18.0); Mean Corpuscular HGB CONC 31.9 g/dL (32.0-36.0); Mean Corpuscular Hemoglobin 29.8 pg (27.0-31.0); Mean Corpuscular Volume 93.3 fL (78.0-98.0); Mean Platelet Volume 9.1 fL (7.4-10.4); Platelet Count 47 10x3/uL (130-400); Red Blood Cell (RBC) Count 2.52 mill/uL (4.70-6.10)
[2024-05-15 14:49] VITALS: BMI 29.6
[2024-05-15] MEDS ORDERED: Lidocaine 1% PF 5 ML VIAL ONE (15:53)
[2024-05-15] MEDS ORDERED: Sodium Bicarbonate 2.5 MEQ/5 ML SDV ONE (15:53)
[2024-05-16 05:42] LABS: #Basophils Less than 0.03 10x3/uL (0.0-0.2); %Basophils 0.9 % (0.0-1.0); %Eosinophils 7.8 % (0.0-10.0); %Lymphocytes 18.9 % (21.0-51.0); %Monocytes 13.4 % (0.0-10.0); Hematocrit 24.3 % (42.0-52.0); Hemoglobin 7.8 g/dL (14.0-18.0); Mean Corpuscular HGB CONC 32.1 g/dL (32.0-36.0); Mean Corpuscular Hemoglobin 29.2 pg (27.0-31.0); Platelet Count 43 10x3/uL (130-400); RBC Distribution Width 18.8 % (11.5-14.5); Red Blood Cell (RBC) Count 2.67 mill/uL (4.70-6.10)
[2024-05-16 05:52] LABS: Anion Gap 11 mmol/L (10-20); BUN (Urea Nitrogen) 17 mg/dL (8.4-25.7); Calc. Creatinine Clearance 44 mL/min (70-130); Calcium 7.9 mg/dL (7.8-10.44); Carbon Dioxide 16 mmol/L (23-31); Chloride 115 mmol/L (98-107); Estimated GFR 36; Glucose 92 mg/dL (80-115); Potassium 3.8 mmol/L (3.5-5.1); Sodium 138 mmol/L (136-145)
[2024-05-17 10:33] LABS: Hematocrit 26.6 % (42.0-52.0); Hemoglobin 8.4 g/dL (14.0-18.0); Mean Corpuscular HGB CONC 31.6 g/dL (32.0-36.0); Mean Corpuscular Hemoglobin 29.5 pg (27.0-31.0); Mean Corpuscular Volume 93.3 fL (78.0-98.0); Mean Platelet Volume 9.5 fL (7.4-10.4); Platelet Count 50 10x3/uL (130-400); RBC Distribution Width 18.6 % (11.5-14.5); Red Blood Cell (RBC) Count 2.85 mill/uL (4.70-6.10)
[2024-05-17 10:39] LABS: Anion Gap 8 mmol/L (10-20); BUN (Urea Nitrogen) 17 mg/dL (8.4-25.7); Calc. Creatinine Clearance 46 mL/min (70-130); Calcium 8.1 mg/dL (7.8-10.44); Carbon Dioxide 15 mmol/L (23-31); Chloride 116 mmol/L (98-107); Estimated GFR 38; Glucose 80 mg/dL (80-115); Potassium 3.7 mmol/L (3.5-5.1); Sodium 135 mmol/L (136-145)
[2024-05-18 06:30] LABS: Hemoglobin 7.4 g/dL (14.0-18.0); Mean Corpuscular HGB CONC 32.2 g/dL (32.0-36.0); Mean Corpuscular Hemoglobin 30.1 pg (27.0-31.0); Mean Corpuscular Volume 93.5 fL (78.0-98.0); Mean Platelet Volume 8.7 fL (7.4-10.4); Platelet Count 41 10x3/uL (130-400); RBC Distribution Width 18.4 % (11.5-14.5); Red Blood Cell (RBC) Count 2.46 mill/uL (4.70-6.10)
[2024-05-18 06:33] LABS: Anion Gap 6 mmol/L (10-20); BUN (Urea Nitrogen) 17 mg/dL (8.4-25.7); Calc. Creatinine Clearance 48 mL/min (70-130); Calcium 7.7 mg/dL (7.8-10.44); Carbon Dioxide 16 mmol/L (23-31); Chloride 115 mmol/L (98-107); Estimated GFR 40; Glucose 83 mg/dL (80-115); Potassium 3.4 mmol/L (3.5-5.1); Sodium 134 mmol/L (136-145)
[2024-05-18 12:23] VITALS: BP 125/70; TEMP 98.3
== END 2024-05-18 18:17 | disposition home or self-care (01) | DRG 683 ==
LOC: ERS 15:17 → ERHOLD 19:49 → OBS 05-14 16:46
PROVIDERS: ADMIT Internal Medicine; ATTEND Internal Medicine
PROC: 0W9G3ZZ Drainage of Peritoneal Cavity, Percutaneous Approach (ICD-10-PCS; principal; 2024-05-15)
DX: N17.9 Acute kidney failure, unspecified (principal); C22.0 Liver cell carcinoma; E87.20 Acidosis, unspecified; I50.22 Chronic systolic (congestive) heart failure; I13.0 Hypertensive heart and chronic kidney disease with heart failure and stage 1 through stage 4 chronic kidney disease, or unspecified chronic kidney disease; N39.0 Urinary tract infection, site not specified; D61.818 Other pancytopenia; E87.5 Hyperkalemia; N18.9 Chronic kidney disease, unspecified; D64.9 Anemia, unspecified; I48.91 Unspecified atrial fibrillation; Z98.890 Other specified postprocedural states; E11.22 Type 2 diabetes mellitus with diabetic chronic kidney disease; I25.10 Atherosclerotic heart disease of native coronary artery without angina pectoris; K21.9 Gastro-esophageal reflux disease without esophagitis; N40.0 Benign prostatic hyperplasia without lower urinary tract symptoms; Z87.891 Personal history of nicotine dependence; N18.30 Chronic kidney disease, stage 3 unspecified; K72.10 Chronic hepatic failure without coma; K70.31 Alcoholic cirrhosis of liver with ascites
CPT/HCPCS: 36415; 36416; 49083; 80048; 80053; 81001; 82140; 83605; 83690; 83735; 84484; 85025; 85027; 86850; 86900; 86901; 87070; 87077; 87086; 87186; 87205; 93005; 97139; J0613; J0692; J1644; J1940; J2405; J7611

== ENCOUNTER 2024-05-28 14:30 | Inpatient (IN) | payer MEDICARE ==
[2024-05-28 15:59] LABS: ALT (SGPT) 20 U/L (8-55); AST (SGOT) 36 U/L (5-34); Albumin 2.5 g/dL (3.4-4.8); Alkaline Phosphatase 205 U/L (40-110); Anion Gap 12 mmol/L (10-20); BUN (Urea Nitrogen) 42 mg/dL (8.4-25.7); Bilirubin, Total 0.6 mg/dL (0.2-1.2); Calc. Creatinine Clearance 0 mL/min (70-130); Carbon Dioxide 13 mmol/L (23-31); Chloride 113 mmol/L (98-107); Estimated GFR 20; Globulin 3.7 g/dL (2.4-3.5); Glucose 89 mg/dL (80-115); Lipase 29 U/L (8-78); Potassium 5.4 mmol/L (3.5-5.1); Protein, Total 6.2 g/dL (5.8-8.1); Sodium 133 mmol/L (136-145)
[2024-05-28 16:01] LABS: #Basophils 0.03 10x3/uL (0.0-0.2); %Basophils 0.8 % (0.0-1.0); %Eosinophils 4.9 % (0.0-10.0); %Lymphocytes 14.8 % (21.0-51.0); %Monocytes 10.9 % (0.0-10.0); %Neutrophils 68.3 % (42.0-75.0); Hematocrit 24.4 % (42.0-52.0); Hemoglobin 7.7 g/dL (14.0-18.0); Mean Corpuscular HGB CONC 31.6 g/dL (32.0-36.0); Mean Corpuscular Hemoglobin 29.7 pg (27.0-31.0); Mean Corpuscular Volume 94.2 fL (78.0-98.0); Mean Platelet Volume 9.4 fL (7.4-10.4); Platelet Count 50 10x3/uL (130-400); RBC Distribution Width 18.6 % (11.5-14.5); Red Blood Cell (RBC) Count 2.59 mill/uL (4.70-6.10)
[2024-05-28 16:08] LABS: INR-International Normal Ratio 1.2; Prothrombin Time 15.5 sec (12.0-14.7)
[2024-05-28] MEDS ORDERED: Ondansetron ODT 4 MG TAB PO PRN (17:15)
[2024-05-28] MEDS ORDERED: Ondansetron PF 4 MG/2 ML Vial IVP PRN (17:15)
[2024-05-28] MEDS ORDERED: Dextrose 5% in Water 1,000 ML IV PRN (17:25)
[2024-05-28] MEDS ORDERED: Dextrose 50% Abboject 50 ML SYRINGE SLOW IVP PRN (17:25)
[2024-05-28] MEDS ORDERED: Glucagon 1 MG/ML KIT IM PRN (17:25)
[2024-05-28] MEDS ORDERED: Furosemide 40 MG (4 mL) VIAL ONE (17:34)
[2024-05-28 19:25] VITALS: BMI 35.0
[2024-05-28 20:09] LABS: Hematocrit 23.9 % (42.0-52.0)
[2024-05-28] MEDS: Sodium Chloride 0.9% 1,000 ML IV SCH (20:58)
[2024-05-28] MEDS: dilTIAZem 30 MG TAB PO SCH (21:01)
[2024-05-28] MEDS: Lactulose 20 GM (30 mL) UDCUP PO SCH (21:01)
[2024-05-28] MEDS: Atorvastatin Calcium 40 MG TAB PO SCH (21:01)
[2024-05-28] MEDS: Metoprolol Tartrate 25 MG TAB PO SCH (21:01)
[2024-05-28] MEDS: Pantoprazole 40 MG VIAL IVP SCH (21:01)
[2024-05-28] MEDS: Rifaximin 550 MG TAB PO SCH (21:02)
[2024-05-29 00:54] LABS: Hematocrit 22.3 % (42.0-52.0)
[2024-05-29 05:29] LABS: ALT (SGPT) 17 U/L (8-55); AST (SGOT) 28 U/L (5-34); Albumin 2.4 g/dL (3.4-4.8); Alkaline Phosphatase 177 U/L (40-110); Anion Gap 11 mmol/L (10-20); BUN (Urea Nitrogen) 42 mg/dL (8.4-25.7); Bilirubin, Total 0.7 mg/dL (0.2-1.2); Calc. Creatinine Clearance 30 mL/min (70-130); Calcium 7.9 mg/dL (7.8-10.44); Carbon Dioxide 14 mmol/L (23-31); Chloride 113 mmol/L (98-107); Estimated GFR 21; Globulin 3.4 g/dL (2.4-3.5); Glucose 77 mg/dL (80-115); Potassium 4.8 mmol/L (3.5-5.1); Protein, Total 5.8 g/dL (5.8-8.1); Sodium 133 mmol/L (136-145)
[2024-05-29 05:50] LABS: Hematocrit 23.2 % (42.0-52.0)
[2024-05-29 07:54] LABS: #Basophils 0.03 10x3/uL (0.0-0.2); %Basophils 1.1 % (0.0-1.0); %Eosinophils 5.3 % (0.0-10.0); %Lymphocytes 13.8 % (21.0-51.0); %Monocytes 12.8 % (0.0-10.0); %Neutrophils 66.6 % (42.0-75.0); Hematocrit 21.9 % (42.0-52.0); Mean Corpuscular Hemoglobin 29.7 pg (27.0-31.0); Mean Corpuscular Volume 92.8 fL (78.0-98.0); Mean Platelet Volume 9.6 fL (7.4-10.4); Platelet Count 41 10x3/uL (130-400); RBC Distribution Width 18.4 % (11.5-14.5); Red Blood Cell (RBC) Count 2.36 mill/uL (4.70-6.10)
[2024-05-29] MEDS: FLUoxetine HCl 20 MG CAP PO SCH (08:56)
[2024-05-29] MEDS: Folic Acid 1 MG TAB PO SCH (08:56)
[2024-05-29] MEDS: Albumin 25% 25 GM (100 mL) BOT IVPB SCH (11:00)
[2024-05-29 12:15] LABS: Hematocrit 23.3 % (42.0-52.0); Hemoglobin 7.5 g/dL (14.0-18.0); Platelet Count 48 10x3/uL (130-400)
[2024-05-29] MEDS: cefTRIAXone Sodium 1 MG in Syringe 0 ML IVPB SCH (14:51)
[2024-05-29] MEDS: cefTRIAXone\\ROCEPHIN 1 GM in Sodium Chloride 0.9% 100 ML IVPB SCH (15:02)
[2024-05-29 18:07] VITALS: BMI 35.0
[2024-05-29 20:01] LABS: Hematocrit 22.6 % (42.0-52.0); Hemoglobin 7.1 g/dL (14.0-18.0); Platelet Count 37 10x3/uL (130-400)
[2024-05-30 04:59] LABS: #Basophils Less than 0.03 10x3/uL (0.0-0.2); %Basophils 0.6 % (0.0-1.0); %Eosinophils 5.6 % (0.0-10.0); %Lymphocytes 14.3 % (21.0-51.0); %Monocytes 12.1 % (0.0-10.0); %Neutrophils 66.8 % (42.0-75.0); Hematocrit 22.3 % (42.0-52.0); Hemoglobin 7.1 g/dL (14.0-18.0); Mean Corpuscular HGB CONC 31.8 g/dL (32.0-36.0); Mean Corpuscular Hemoglobin 29.7 pg (27.0-31.0); Mean Corpuscular Volume 93.3 fL (78.0-98.0); Mean Platelet Volume 9.5 fL (7.4-10.4); Platelet Count 44 10x3/uL (130-400); RBC Distribution Width 18.4 % (11.5-14.5); Red Blood Cell (RBC) Count 2.39 mill/uL (4.70-6.10)
[2024-05-30 05:22] LABS: ALT (SGPT) 12 U/L (8-55); AST (SGOT) 23 U/L (5-34); Albumin 2.8 g/dL (3.4-4.8); Alkaline Phosphatase 139 U/L (40-110); Anion Gap 11 mmol/L (10-20); BUN (Urea Nitrogen) 42 mg/dL (8.4-25.7); Bilirubin, Total 0.7 mg/dL (0.2-1.2); Calc. Creatinine Clearance 32 mL/min (70-130); Carbon Dioxide 13 mmol/L (23-31); Chloride 116 mmol/L (98-107); Estimated GFR 23; Glucose 87 mg/dL (80-115); Potassium 4.4 mmol/L (3.5-5.1); Protein, Total 5.8 g/dL (5.8-8.1); Sodium 136 mmol/L (136-145)
[2024-05-30 05:23] LABS: INR-International Normal Ratio 1.4; Prothrombin Time 17.4 sec (12.0-14.7)
[2024-05-30 05:24] LABS: PTT 40.8 sec (22.9-36.1)
[2024-05-30] MEDS: Sodium Bicarbonate 150 MEQ in Dextrose 5% in Water 1,000 ML IV SCH (10:48)
[2024-05-30 16:14] LABS: Hematocrit 22.6 % (42.0-52.0); Hemoglobin 7.1 g/dL (14.0-18.0)
[2024-05-31] MEDS: Sodium Bicarbonate 150 MEQ in Dextrose 5% in Water 1,000 ML IV SCH (02:58)
[2024-05-31 04:27] LABS: #Basophils 0.03 10x3/uL (0.0-0.2); %Basophils 0.9 % (0.0-1.0); %Eosinophils 4.9 % (0.0-10.0); %Lymphocytes 13.8 % (21.0-51.0); %Neutrophils 66.8 % (42.0-75.0); Hematocrit 22.3 % (42.0-52.0); Hemoglobin 7.1 g/dL (14.0-18.0); Mean Corpuscular HGB CONC 31.8 g/dL (32.0-36.0); Mean Corpuscular Volume 94.1 fL (78.0-98.0); Mean Platelet Volume 10.3 fL (7.4-10.4); Platelet Count 42 10x3/uL (130-400); RBC Distribution Width 18.6 % (11.5-14.5); Red Blood Cell (RBC) Count 2.37 mill/uL (4.70-6.10)
[2024-05-31 04:35] LABS: INR-International Normal Ratio 1.4; Prothrombin Time 16.9 sec (12.0-14.7)
[2024-05-31 04:36] LABS: PTT 41.2 sec (22.9-36.1)
[2024-05-31 04:49] LABS: ALT (SGPT) 12 U/L (8-55); AST (SGOT) 22 U/L (5-34); Albumin 3.1 g/dL (3.4-4.8); Alkaline Phosphatase 139 U/L (40-110); Anion Gap 13 mmol/L (10-20); BUN (Urea Nitrogen) 38 mg/dL (8.4-25.7); Bilirubin, Total 0.7 mg/dL (0.2-1.2); Calc. Creatinine Clearance 34 mL/min (70-130); Calcium 7.9 mg/dL (7.8-10.44); Carbon Dioxide 15 mmol/L (23-31); Chloride 115 mmol/L (98-107); Estimated GFR 25; Globulin 2.5 g/dL (2.4-3.5); Glucose 94 mg/dL (80-115); Protein, Total 5.6 g/dL (5.8-8.1); Sodium 139 mmol/L (136-145)
[2024-05-31] MEDS: Cyanocobalamin (Vitamin B-12) 1,000 MCG TAB PO SCH (09:35)
[2024-05-31] MEDS: Sodium Bicarbonate Tab 325 MG TAB PO SCH (09:36)
[2024-05-31] MEDS: Multivit, Therapeutic 1 TAB PO SCH (09:36)
[2024-05-31] MEDS: Folic Acid 1 MG TAB PO SCH (09:36)
[2024-05-31] MEDS: Albumin 25% 25 GM (100 mL) BOT IVPB SCH (16:54)
[2024-05-31] MEDS: Pantoprazole DR 40 MG TAB PO SCH (21:33)
[2024-06-01 05:10] LABS: #Basophils 0.03 10x3/uL (0.0-0.2); %Basophils 0.8 % (0.0-1.0); %Eosinophils 4.4 % (0.0-10.0); %Lymphocytes 10.7 % (21.0-51.0); %Monocytes 12.3 % (0.0-10.0); %Neutrophils 71.5 % (42.0-75.0); Hematocrit 22.8 % (42.0-52.0); Hemoglobin 7.2 g/dL (14.0-18.0); Mean Corpuscular HGB CONC 31.6 g/dL (32.0-36.0); Mean Corpuscular Hemoglobin 29.5 pg (27.0-31.0); Mean Corpuscular Volume 93.4 fL (78.0-98.0); Platelet Count 39 10x3/uL (130-400); RBC Distribution Width 18.4 % (11.5-14.5); Red Blood Cell (RBC) Count 2.44 mill/uL (4.70-6.10)
[2024-06-01 05:28] LABS: ALT (SGPT) 13 U/L (8-55); AST (SGOT) 25 U/L (5-34); Albumin 3.6 g/dL (3.4-4.8); Alkaline Phosphatase 132 U/L (40-110); Anion Gap 12 mmol/L (10-20); BUN (Urea Nitrogen) 36 mg/dL (8.4-25.7); Bilirubin, Total 0.9 mg/dL (0.2-1.2); Calc. Creatinine Clearance 35 mL/min (70-130); Calcium 8.2 mg/dL (7.8-10.44); Carbon Dioxide 17 mmol/L (23-31); Chloride 114 mmol/L (98-107); Estimated GFR 26; Globulin 2.6 g/dL (2.4-3.5); Glucose 98 mg/dL (80-115); Potassium 3.7 mmol/L (3.5-5.1); Protein, Total 6.2 g/dL (5.8-8.1); Sodium 139 mmol/L (136-145)
[2024-06-01] MEDS: Albumin 25% 25 GM (100 mL) BOT IVPB SCH (11:44)
[2024-06-01] MEDS: Spironolactone 100 MG TAB PO SCH (15:50)
[2024-06-02 05:27] LABS: #Basophils Less than 0.03 10x3/uL (0.0-0.2); %Basophils 0.6 % (0.0-1.0); %Eosinophils 3.4 % (0.0-10.0); %Monocytes 10.1 % (0.0-10.0); %Neutrophils 74.6 % (42.0-75.0); Hematocrit 21.2 % (42.0-52.0); Hemoglobin 6.7 g/dL (14.0-18.0); Mean Corpuscular HGB CONC 31.6 g/dL (32.0-36.0); Mean Corpuscular Hemoglobin 29.8 pg (27.0-31.0); Mean Corpuscular Volume 94.2 fL (78.0-98.0); Mean Platelet Volume 8.5 fL (7.4-10.4); Platelet Count 37 10x3/uL (130-400); RBC Distribution Width 18.5 % (11.5-14.5); Red Blood Cell (RBC) Count 2.25 mill/uL (4.70-6.10)
[2024-06-02 05:29] LABS: ALT (SGPT) 12 U/L (8-55); AST (SGOT) 28 U/L (5-34); Albumin 3.9 g/dL (3.4-4.8); Alkaline Phosphatase 140 U/L (40-110); Anion Gap 11 mmol/L (10-20); BUN (Urea Nitrogen) 34 mg/dL (8.4-25.7); Calc. Creatinine Clearance 34 mL/min (70-130); Calcium 8.5 mg/dL (7.8-10.44); Carbon Dioxide 18 mmol/L (23-31); Chloride 115 mmol/L (98-107); Estimated GFR 24; Globulin 2.2 g/dL (2.4-3.5); Glucose 94 mg/dL (80-115); Potassium 3.6 mmol/L (3.5-5.1); Protein, Total 6.1 g/dL (5.8-8.1); Sodium 140 mmol/L (136-145)
[2024-06-02] MEDS: Spironolactone 100 MG TAB PO SCH (10:24)
[2024-06-02] MEDS: Albumin 25% 25 GM (100 mL) BOT IVPB SCH ×2 (13:29→17:16)
[2024-06-02] MEDS: Mirtazapine 15 MG TAB PO SCH (22:47)
[2024-06-03] MEDS: Acetaminophen 325 MG TAB PO PRN (05:01)
[2024-06-03 05:30] LABS: ALT (SGPT) 11 U/L (8-55); AST (SGOT) 21 U/L (5-34); Albumin 4.3 g/dL (3.4-4.8); Alkaline Phosphatase 144 U/L (40-110); Anion Gap 13 mmol/L (10-20); BUN (Urea Nitrogen) 33 mg/dL (8.4-25.7); Bilirubin, Total 1.4 mg/dL (0.2-1.2); Calc. Creatinine Clearance 32 mL/min (70-130); Calcium 8.8 mg/dL (7.8-10.44); Carbon Dioxide 17 mmol/L (23-31); Chloride 115 mmol/L (98-107); Estimated GFR 23; Globulin 2.4 g/dL (2.4-3.5); Glucose 91 mg/dL (80-115); Magnesium 2.2 mg/dL (1.6-2.6); Potassium 3.5 mmol/L (3.5-5.1); Protein, Total 6.7 g/dL (5.8-8.1); Sodium 141 mmol/L (136-145)
[2024-06-03 05:32] LABS: #Basophils 0.04 10x3/uL (0.0-0.2); %Basophils 0.6 % (0.0-1.0); %Eosinophils 1.7 % (0.0-10.0); %Lymphocytes 8.3 % (21.0-51.0); %Monocytes 10.3 % (0.0-10.0); %Neutrophils 78.6 % (42.0-75.0); Hematocrit 25.7 % (42.0-52.0); Hemoglobin 8.2 g/dL (14.0-18.0); Mean Corpuscular HGB CONC 31.9 g/dL (32.0-36.0); Mean Corpuscular Hemoglobin 29.8 pg (27.0-31.0); Mean Corpuscular Volume 93.5 fL (78.0-98.0); Mean Platelet Volume 9.9 fL (7.4-10.4); Platelet Count 42 10x3/uL (130-400); RBC Distribution Width 18.2 % (11.5-14.5); Red Blood Cell (RBC) Count 2.75 mill/uL (4.70-6.10)
[2024-06-03 05:53] LABS: Phosphorus 2.9 mg/dL (2.3-4.7)
[2024-06-03] MEDS: Albumin 25% 25 GM (100 mL) BOT IVPB SCH (18:39)
[2024-06-03] MEDS: Midodrine HCl 5 MG TAB PO SCH (19:48)
[2024-06-04 05:59] LABS: #Basophils 0.04 10x3/uL (0.0-0.2); %Basophils 0.6 % (0.0-1.0); %Eosinophils 1.8 % (0.0-10.0); %Lymphocytes 7.7 % (21.0-51.0); %Neutrophils 79.4 % (42.0-75.0); Hematocrit 24.1 % (42.0-52.0); Hemoglobin 7.7 g/dL (14.0-18.0); Mean Corpuscular Hemoglobin 29.7 pg (27.0-31.0); Mean Corpuscular Volume 93.1 fL (78.0-98.0); Mean Platelet Volume 10.5 fL (7.4-10.4); Platelet Count 38 10x3/uL (130-400); RBC Distribution Width 17.6 % (11.5-14.5); Red Blood Cell (RBC) Count 2.59 mill/uL (4.70-6.10)
[2024-06-04 06:11] LABS: Anion Gap 12 mmol/L (10-20); BUN (Urea Nitrogen) 35 mg/dL (8.4-25.7); Calc. Creatinine Clearance 32 mL/min (70-130); Calcium 8.6 mg/dL (7.8-10.44); Carbon Dioxide 16 mmol/L (23-31); Chloride 115 mmol/L (98-107); Estimated GFR 23; Glucose 109 mg/dL (80-115); Sodium 140 mmol/L (136-145)
[2024-06-04] MEDS: Potassium Bicarbonate/Cit Ac 20 MEQ TAB PO SCH (09:01)
[2024-06-04] MEDS: Potassium Chloride 10 MEQ TAB PO SCH ×2 (12:10→15:29)
[2024-06-04 12:45] LABS: Anion Gap 13 mmol/L (10-20); BUN (Urea Nitrogen) 35 mg/dL (8.4-25.7); Calc. Creatinine Clearance 32 mL/min (70-130); Calcium 8.7 mg/dL (7.8-10.44); Carbon Dioxide 16 mmol/L (23-31); Chloride 115 mmol/L (98-107); Estimated GFR 23; Glucose 102 mg/dL (80-115); Potassium 3.1 mmol/L (3.5-5.1); Sodium 141 mmol/L (136-145)
[2024-06-04] MEDS: Doxycycline 100 MG CAP PO SCH (20:02)
[2024-06-05 05:57] LABS: ALT (SGPT) 7 U/L (8-55); AST (SGOT) 14 U/L (5-34); Alkaline Phosphatase 122 U/L (40-110); Anion Gap 11 mmol/L (10-20); BUN (Urea Nitrogen) 38 mg/dL (8.4-25.7); Bilirubin, Total 1.1 mg/dL (0.2-1.2); Calc. Creatinine Clearance 32 mL/min (70-130); Calcium 8.5 mg/dL (7.8-10.44); Carbon Dioxide 16 mmol/L (23-31); Chloride 117 mmol/L (98-107); Estimated GFR 23; Globulin 2.1 g/dL (2.4-3.5); Glucose 96 mg/dL (80-115); Potassium 3.4 mmol/L (3.5-5.1); Protein, Total 6.1 g/dL (5.8-8.1); Sodium 141 mmol/L (136-145)
[2024-06-05 06:13] LABS: #Basophils 0.03 10x3/uL (0.0-0.2); %Basophils 0.5 % (0.0-1.0); %Eosinophils 4.3 % (0.0-10.0); %Lymphocytes 7.3 % (21.0-51.0); %Monocytes 9.4 % (0.0-10.0); Hematocrit 24.5 % (42.0-52.0); Mean Corpuscular HGB CONC 32.7 g/dL (32.0-36.0); Mean Corpuscular Volume 91.8 fL (78.0-98.0); Platelet Count 44 10x3/uL (130-400); RBC Distribution Width 17.4 % (11.5-14.5); Red Blood Cell (RBC) Count 2.67 mill/uL (4.70-6.10)
[2024-06-05] MEDS: Potassium Chloride 10 MEQ TAB PO SCH (08:58)
[2024-06-05] MEDS: Octreotide Acetate 100 MCG/ML VIAL SC SCH (15:12)
[2024-06-05] MEDS: Lactulose 20 GM (30 mL) UDCUP PO SCH (20:08)
[2024-06-06 04:07] LABS: #Basophils 0.03 10x3/uL (0.0-0.2); %Basophils 0.5 % (0.0-1.0); %Eosinophils 7.5 % (0.0-10.0); %Lymphocytes 9.7 % (21.0-51.0); %Monocytes 8.8 % (0.0-10.0); %Neutrophils 73.3 % (42.0-75.0); Hematocrit 26.1 % (42.0-52.0); Hemoglobin 8.4 g/dL (14.0-18.0); Mean Corpuscular HGB CONC 32.2 g/dL (32.0-36.0); Mean Corpuscular Hemoglobin 29.7 pg (27.0-31.0); Mean Corpuscular Volume 92.2 fL (78.0-98.0); Mean Platelet Volume 10.6 fL (7.4-10.4); Platelet Count 54 10x3/uL (130-400); RBC Distribution Width 17.2 % (11.5-14.5); Red Blood Cell (RBC) Count 2.83 mill/uL (4.70-6.10)
[2024-06-06 04:36] LABS: ALT (SGPT) 11 U/L (8-55); AST (SGOT) 18 U/L (5-34); Alkaline Phosphatase 138 U/L (40-110); Anion Gap 14 mmol/L (10-20); BUN (Urea Nitrogen) 37 mg/dL (8.4-25.7); Bilirubin, Total 1.1 mg/dL (0.2-1.2); Calc. Creatinine Clearance 27 mL/min (70-130); Calcium 8.6 mg/dL (7.8-10.44); Carbon Dioxide 16 mmol/L (23-31); Chloride 116 mmol/L (98-107); Estimated GFR 19; Globulin 2.4 g/dL (2.4-3.5); Glucose 125 mg/dL (80-115); Potassium 3.7 mmol/L (3.5-5.1); Protein, Total 6.4 g/dL (5.8-8.1); Sodium 142 mmol/L (136-145)
[2024-06-07 05:43] LABS: ALT (SGPT) 6 U/L (8-55); AST (SGOT) 13 U/L (5-34); Albumin 3.6 g/dL (3.4-4.8); Alkaline Phosphatase 108 U/L (40-110); Anion Gap 14 mmol/L (10-20); BUN (Urea Nitrogen) 37 mg/dL (8.4-25.7); Bilirubin, Total 0.8 mg/dL (0.2-1.2); Calc. Creatinine Clearance 28 mL/min (70-130); Calcium 8.1 mg/dL (7.8-10.44); Carbon Dioxide 14 mmol/L (23-31); Chloride 116 mmol/L (98-107); Estimated GFR 20; Globulin 2.3 g/dL (2.4-3.5); Glucose 104 mg/dL (80-115); Potassium 3.7 mmol/L (3.5-5.1); Protein, Total 5.9 g/dL (5.8-8.1); Sodium 140 mmol/L (136-145)
[2024-06-07] MEDS: Rifaximin 200 MG TAB PO SCH ×2 (11:01→21:14)
[2024-06-08 04:55] LABS: ALT (SGPT) 6 U/L (8-55); AST (SGOT) 14 U/L (5-34); Albumin 3.5 g/dL (3.4-4.8); Alkaline Phosphatase 102 U/L (40-110); Anion Gap 12 mmol/L (10-20); BUN (Urea Nitrogen) 38 mg/dL (8.4-25.7); Bilirubin, Total 0.7 mg/dL (0.2-1.2); Calc. Creatinine Clearance 28 mL/min (70-130); Carbon Dioxide 16 mmol/L (23-31); Chloride 113 mmol/L (98-107); Estimated GFR 20; Globulin 2.2 g/dL (2.4-3.5); Glucose 99 mg/dL (80-115); Protein, Total 5.7 g/dL (5.8-8.1); Sodium 137 mmol/L (136-145)
[2024-06-08] MEDS: Midodrine HCl 5 MG TAB PO SCH (21:07)
[2024-06-09 10:20] LABS: Anion Gap 13 mmol/L (10-20); BUN (Urea Nitrogen) 39 mg/dL (8.4-25.7); Calc. Creatinine Clearance 26 mL/min (70-130); Calcium 8.1 mg/dL (7.8-10.44); Carbon Dioxide 17 mmol/L (23-31); Chloride 111 mmol/L (98-107); Estimated GFR 18; Glucose 153 mg/dL (80-115); Sodium 137 mmol/L (136-145)
[2024-06-09 10:25] LABS: #Basophils 0.04 10x3/uL (0.0-0.2); %Basophils 0.7 % (0.0-1.0); %Eosinophils 6.2 % (0.0-10.0); %Lymphocytes 11.6 % (21.0-51.0); %Monocytes 10.9 % (0.0-10.0); %Neutrophils 70.2 % (42.0-75.0); Hemoglobin 8.2 g/dL (14.0-18.0); Mean Corpuscular HGB CONC 31.5 g/dL (32.0-36.0); Mean Corpuscular Hemoglobin 29.8 pg (27.0-31.0); Mean Corpuscular Volume 94.5 fL (78.0-98.0); Mean Platelet Volume 9.9 fL (7.4-10.4); Platelet Count 63 10x3/uL (130-400); RBC Distribution Width 17.5 % (11.5-14.5); Red Blood Cell (RBC) Count 2.75 mill/uL (4.70-6.10)
[2024-06-09] MEDS ORDERED: Lidocaine 1% PF 5 ML VIAL ONE (10:56)
[2024-06-09] MEDS ORDERED: Sodium Bicarbonate 2.5 MEQ/5 ML SDV ONE (10:56)
[2024-06-09 12:58] LABS: RBC Count-Automated (BF) 2049 /cu.mm; WBC/Nucleated-Auto (BF) 238 /cu.mm
[2024-06-09 13:59] LABS: BF Color Yellow; Body Fluid Source Ascites Body Fluid; Clarity Hazy (Clear); Tube # EDTA
[2024-06-09 14:05] LABS: BF Segmented Neutrophils 7 %; Cell Count Non Hematic 75 %; Lymphocytes 18 %
[2024-06-09] MEDS: Albumin 25% 25 GM (100 mL) BOT IVPB SCH (18:27)
[2024-06-10 05:04] LABS: #Basophils 0.03 10x3/uL (0.0-0.2); %Basophils 0.5 % (0.0-1.0); %Eosinophils 6.5 % (0.0-10.0); %Lymphocytes 12.8 % (21.0-51.0); %Monocytes 11.4 % (0.0-10.0); %Neutrophils 68.4 % (42.0-75.0); Hematocrit 23.6 % (42.0-52.0); Hemoglobin 7.7 g/dL (14.0-18.0); Mean Corpuscular HGB CONC 32.6 g/dL (32.0-36.0); Mean Corpuscular Hemoglobin 29.7 pg (27.0-31.0); Mean Corpuscular Volume 91.1 fL (78.0-98.0); Mean Platelet Volume 9.3 fL (7.4-10.4); Platelet Count 55 10x3/uL (130-400); Red Blood Cell (RBC) Count 2.59 mill/uL (4.70-6.10)
[2024-06-10 05:35] LABS: Anion Gap 12 mmol/L (10-20); BUN (Urea Nitrogen) 39 mg/dL (8.4-25.7); Calc. Creatinine Clearance 25 mL/min (70-130); Calcium 8.1 mg/dL (7.8-10.44); Carbon Dioxide 16 mmol/L (23-31); Chloride 112 mmol/L (98-107); Estimated GFR 17; Glucose 123 mg/dL (80-115); Sodium 136 mmol/L (136-145)
[2024-06-11 06:21] LABS: Anion Gap 12 mmol/L (10-20); BUN (Urea Nitrogen) 41 mg/dL (8.4-25.7); Calc. Creatinine Clearance 27 mL/min (70-130); Calcium 8.1 mg/dL (7.8-10.44); Carbon Dioxide 15 mmol/L (23-31); Chloride 113 mmol/L (98-107); Estimated GFR 19; Glucose 114 mg/dL (80-115); Potassium 3.9 mmol/L (3.5-5.1); Sodium 136 mmol/L (136-145)
[2024-06-11 06:30] LABS: #Basophils 0.04 10x3/uL (0.0-0.2); %Basophils 0.8 % (0.0-1.0); %Eosinophils 5.7 % (0.0-10.0); %Lymphocytes 10.4 % (21.0-51.0); %Monocytes 10.6 % (0.0-10.0); %Neutrophils 72.1 % (42.0-75.0); Hematocrit 23.9 % (42.0-52.0); Hemoglobin 7.7 g/dL (14.0-18.0); Mean Corpuscular HGB CONC 32.2 g/dL (32.0-36.0); Mean Corpuscular Hemoglobin 29.4 pg (27.0-31.0); Mean Corpuscular Volume 91.2 fL (78.0-98.0); Mean Platelet Volume 10.3 fL (7.4-10.4); Platelet Count 55 10x3/uL (130-400); RBC Distribution Width 17.2 % (11.5-14.5); Red Blood Cell (RBC) Count 2.62 mill/uL (4.70-6.10)
[2024-06-11] MEDS: Metoprolol Tartrate 25 MG TAB PO SCH (21:21)
[2024-06-12 05:15] LABS: #Basophils 0.04 10x3/uL (0.0-0.2); %Basophils 0.7 % (0.0-1.0); %Lymphocytes 10.2 % (21.0-51.0); %Monocytes 12.9 % (0.0-10.0); %Neutrophils 68.8 % (42.0-75.0); Hematocrit 24.7 % (42.0-52.0); Hemoglobin 7.9 g/dL (14.0-18.0); Mean Corpuscular Hemoglobin 29.5 pg (27.0-31.0); Mean Corpuscular Volume 92.2 fL (78.0-98.0); Mean Platelet Volume 10.4 fL (7.4-10.4); Platelet Count 61 10x3/uL (130-400); RBC Distribution Width 17.6 % (11.5-14.5); Red Blood Cell (RBC) Count 2.68 mill/uL (4.70-6.10)
[2024-06-12 05:23] LABS: Anion Gap 11 mmol/L (10-20); BUN (Urea Nitrogen) 37 mg/dL (8.4-25.7); Calc. Creatinine Clearance 24 mL/min (70-130); Carbon Dioxide 17 mmol/L (23-31); Chloride 113 mmol/L (98-107); Estimated GFR 16; Glucose 110 mg/dL (80-115); Potassium 3.8 mmol/L (3.5-5.1); Sodium 137 mmol/L (136-145)
[2024-06-12] MEDS: Albumin 25% 25 GM (100 mL) BOT IVPB SCH (16:22)
[2024-06-12] MEDS: Insulin Lispro 100 UNIT/ML 10 ML VIAL SC PRN (18:20)
[2024-06-13 05:09] LABS: #Basophils 0.04 10x3/uL (0.0-0.2); %Basophils 0.7 % (0.0-1.0); %Eosinophils 5.7 % (0.0-10.0); %Lymphocytes 10.3 % (21.0-51.0); %Monocytes 10.4 % (0.0-10.0); %Neutrophils 72.7 % (42.0-75.0); Hematocrit 23.6 % (42.0-52.0); Hemoglobin 7.6 g/dL (14.0-18.0); Mean Corpuscular HGB CONC 32.2 g/dL (32.0-36.0); Mean Corpuscular Hemoglobin 29.5 pg (27.0-31.0); Mean Corpuscular Volume 91.5 fL (78.0-98.0); Mean Platelet Volume 9.5 fL (7.4-10.4); Platelet Count 57 10x3/uL (130-400); RBC Distribution Width 17.6 % (11.5-14.5); Red Blood Cell (RBC) Count 2.58 mill/uL (4.70-6.10)
[2024-06-13 05:13] LABS: Anion Gap 14 mmol/L (10-20); BUN (Urea Nitrogen) 38 mg/dL (8.4-25.7); Calc. Creatinine Clearance 25 mL/min (70-130); Calcium 8.1 mg/dL (7.8-10.44); Carbon Dioxide 16 mmol/L (23-31); Chloride 112 mmol/L (98-107); Estimated GFR 17; Glucose 93 mg/dL (80-115); Potassium 3.8 mmol/L (3.5-5.1); Sodium 138 mmol/L (136-145)
[2024-06-13] MEDS: Metoprolol Tartrate 25 MG TAB PO SCH (21:13)
[2024-06-14 09:38] LABS: ALT (SGPT) 6 U/L (8-55); AST (SGOT) 17 U/L (5-34); Albumin 4.2 g/dL (3.4-4.8); Alkaline Phosphatase 91 U/L (40-110); Anion Gap 15 mmol/L (10-20); BUN (Urea Nitrogen) 40 mg/dL (8.4-25.7); Bilirubin, Total 1.2 mg/dL (0.2-1.2); Calc. Creatinine Clearance 25 mL/min (70-130); Calcium 8.2 mg/dL (7.8-10.44); Carbon Dioxide 13 mmol/L (23-31); Chloride 111 mmol/L (98-107); Estimated GFR 17; Globulin 2.1 g/dL (2.4-3.5); Glucose 129 mg/dL (80-115); Potassium 4.1 mmol/L (3.5-5.1); Protein, Total 6.3 g/dL (5.8-8.1); Sodium 135 mmol/L (136-145)
[2024-06-15 05:46] LABS: ALT (SGPT) 5 U/L (8-55); AST (SGOT) 13 U/L (5-34); Albumin 3.7 g/dL (3.4-4.8); Alkaline Phosphatase 92 U/L (40-110); Anion Gap 12 mmol/L (10-20); BUN (Urea Nitrogen) 42 mg/dL (8.4-25.7); Calc. Creatinine Clearance 26 mL/min (70-130); Calcium 8.1 mg/dL (7.8-10.44); Carbon Dioxide 16 mmol/L (23-31); Chloride 110 mmol/L (98-107); Estimated GFR 17; Globulin 2.1 g/dL (2.4-3.5); Glucose 113 mg/dL (80-115); Potassium 3.7 mmol/L (3.5-5.1); Protein, Total 5.8 g/dL (5.8-8.1); Sodium 134 mmol/L (136-145)
[2024-06-15 05:54] LABS: Hematocrit 23.6 % (42.0-52.0); Hemoglobin 7.7 g/dL (14.0-18.0); Mean Corpuscular HGB CONC 32.6 g/dL (32.0-36.0); Mean Corpuscular Hemoglobin 29.8 pg (27.0-31.0); Mean Corpuscular Volume 91.5 fL (78.0-98.0); Mean Platelet Volume 10.3 fL (7.4-10.4); Platelet Count 65 10x3/uL (130-400); Red Blood Cell (RBC) Count 2.58 mill/uL (4.70-6.10)
[2024-06-15 11:14] VITALS: TEMP 97.9
[2024-06-15 15:20] VITALS: BP 135/79
== END 2024-06-15 17:57 | disposition home or self-care (01) | DRG 377 ==
LOC: SUATTDRO 14:30 → ERS 14:30 → SURG A 17:20
PROVIDERS: ADMIT Family Medicine; ATTEND Student in an Organized Health Care Education/Training Program
PROC: 30233J1 Transfusion of Nonautologous Serum Albumin into Peripheral Vein, Percutaneous Approach (ICD-10-PCS; 2024-05-29)
PROC: 30233N1 Transfusion of Nonautologous Red Blood Cells into Peripheral Vein, Percutaneous Approach (ICD-10-PCS; 2024-06-02)
PROC: 0W9G3ZZ Drainage of Peritoneal Cavity, Percutaneous Approach (ICD-10-PCS; principal; 2024-06-09)
DX: K57.91 Diverticulosis of intestine, part unspecified, without perforation or abscess with bleeding (principal); K76.7 Hepatorenal syndrome; N17.0 Acute kidney failure with tubular necrosis; C22.0 Liver cell carcinoma; I13.0 Hypertensive heart and chronic kidney disease with heart failure and stage 1 through stage 4 chronic kidney disease, or unspecified chronic kidney disease; I50.22 Chronic systolic (congestive) heart failure; D62 Acute posthemorrhagic anemia; D61.818 Other pancytopenia; E87.1 Hypo-osmolality and hyponatremia; D68.9 Coagulation defect, unspecified; E87.20 Acidosis, unspecified; K92.1 Melena; E11.22 Type 2 diabetes mellitus with diabetic chronic kidney disease; I48.91 Unspecified atrial fibrillation; I25.10 Atherosclerotic heart disease of native coronary artery without angina pectoris; Z87.891 Personal history of nicotine dependence; K75.81 Nonalcoholic steatohepatitis (NASH); Z79.899 Other long term (current) drug therapy; K76.82 Hepatic encephalopathy; E87.5 Hyperkalemia; F41.9 Anxiety disorder, unspecified; G47.33 Obstructive sleep apnea (adult) (pediatric); N18.30 Chronic kidney disease, stage 3 unspecified; K70.31 Alcoholic cirrhosis of liver with ascites; E87.6 Hypokalemia; E88.09 Other disorders of plasma-protein metabolism, not elsewhere classified
CPT/HCPCS: 36415; 36416; 36430; 49083; 71045; 76705; 80048; 80053; 82042; 82140; 83605; 83690; 83735; 84100; 84145; 84157; 85014; 85025; 85027; 85046; 85060; 85610; 85730; 86850; 86900; 86901; 87070; 87205; 88112; 88305; 89051; 96374; 97139; J0696; J1815; J1940; J2354; J2470; J7030; J7070; P9016; P9047

== ENCOUNTER 2024-06-19 12:04 | Inpatient (IN) | payer MEDICARE ==
[2024-06-19 13:55] LABS: INR-International Normal Ratio 1.6; Prothrombin Time 19.2 sec (12.0-14.7)
[2024-06-19 13:56] LABS: PTT 41.9 sec (22.9-36.1)
[2024-06-19 14:24] LABS: ALT (SGPT) 5 U/L (8-55); AST (SGOT) 17 U/L (5-34); Albumin 4.1 g/dL (3.4-4.8); Alkaline Phosphatase 108 U/L (40-110); Anion Gap 15 mmol/L (10-20); BUN (Urea Nitrogen) 48 mg/dL (8.4-25.7); Bilirubin, Total 1.3 mg/dL (0.2-1.2); Calc. Creatinine Clearance 0 mL/min (70-130); Calcium 8.5 mg/dL (7.8-10.44); Carbon Dioxide 15 mmol/L (23-31); Chloride 110 mmol/L (98-107); Estimated GFR 14; Globulin 2.4 g/dL (2.4-3.5); Glucose 119 mg/dL (80-115); Lipase 16 U/L (8-78); Potassium 4.3 mmol/L (3.5-5.1); Protein, Total 6.5 g/dL (5.8-8.1); Sodium 136 mmol/L (136-145)
[2024-06-19 14:25] LABS: Troponin I Less than 0.010 ng/mL (< 0.028)
[2024-06-19 14:29] LABS: Anisocytosis SLIGHT = 6-15 cells HPF (0-5); Burr Cells SLIGHT = 2-5 cells HPF (0-1); Microcytosis SLIGHT = 6-15 cells HPF (0-5); Platelet Adequacy Comment Platelets Decreased; Polychromasia SLIGHT = 2-3 cells HPF (0-2)
[2024-06-19 14:35] LABS: #Basophils 0.04 10x3/uL (0.0-0.2); %Basophils 0.7 % (0.0-1.0); %Eosinophils 3.3 % (0.0-10.0); %Lymphocytes 6.7 % (21.0-51.0); %Monocytes 10.7 % (0.0-10.0); %Neutrophils 78.4 % (42.0-75.0); Hematocrit 25.1 % (42.0-52.0); Mean Corpuscular HGB CONC 31.9 g/dL (32.0-36.0); Mean Corpuscular Hemoglobin 29.7 pg (27.0-31.0); Mean Corpuscular Volume 93.3 fL (78.0-98.0); Mean Platelet Volume 9.8 fL (7.4-10.4); Platelet Count 64 10x3/uL (130-400); RBC Distribution Width 18.8 % (11.5-14.5); Red Blood Cell (RBC) Count 2.69 mill/uL (4.70-6.10)
[2024-06-19] MEDS ORDERED: Furosemide 40 MG (4 mL) VIAL ONE (15:54)
[2024-06-19] MEDS ORDERED: Lactulose 20 GM (30 mL) UDCUP ONE (15:55)
[2024-06-19] MEDS ORDERED: Ondansetron ODT 4 MG TAB PO PRN (16:07)
[2024-06-19] MEDS: Furosemide 40 MG (4 mL) VIAL SLOW IVP SCH (19:02)
[2024-06-19] MEDS: Lactulose 20 GM (30 mL) UDCUP PO SCH (19:02)
[2024-06-19] MEDS: Metoprolol Tartrate 25 MG TAB PO SCH (22:28)
[2024-06-19] MEDS: Sodium Bicarbonate Tab 325 MG TAB PO SCH (22:28)
[2024-06-19] MEDS: dilTIAZem 30 MG TAB PO SCH (22:29)
[2024-06-19] MEDS: Rifaximin 550 MG TAB PO SCH (22:32)
[2024-06-19 22:40] VITALS: BMI 35.4
[2024-06-20 07:59] LABS: ALT (SGPT) 6 U/L (8-55); AST (SGOT) 16 U/L (5-34); Albumin 3.6 g/dL (3.4-4.8); Alkaline Phosphatase 92 U/L (40-110); Anion Gap 15 mmol/L (10-20); BUN (Urea Nitrogen) 48 mg/dL (8.4-25.7); Bilirubin, Total 1.3 mg/dL (0.2-1.2); Calc. Creatinine Clearance 21 mL/min (70-130); Calcium 8.3 mg/dL (7.8-10.44); Carbon Dioxide 16 mmol/L (23-31); Chloride 112 mmol/L (98-107); Estimated GFR 14; Globulin 2.4 g/dL (2.4-3.5); Glucose 101 mg/dL (80-115); Potassium 3.8 mmol/L (3.5-5.1); Sodium 139 mmol/L (136-145)
[2024-06-20 08:10] LABS: Hematocrit 22.4 % (42.0-52.0); Hemoglobin 7.3 g/dL (14.0-18.0); Mean Corpuscular HGB CONC 32.6 g/dL (32.0-36.0); Mean Corpuscular Hemoglobin 29.7 pg (27.0-31.0); Mean Corpuscular Volume 91.1 fL (78.0-98.0); Mean Platelet Volume 10.7 fL (7.4-10.4); Platelet Count 45 10x3/uL (130-400); RBC Distribution Width 18.5 % (11.5-14.5); Red Blood Cell (RBC) Count 2.46 mill/uL (4.70-6.10)
[2024-06-20 08:29] LABS: Anisocytosis MARKED = >30 cells HPF (0-5); Macrocytosis MODERATE=16-30 cells HPF (0-5); Ovalocytes MODERATE= 6-15 cells HPF (0-1); Platelet Adequacy Comment Significant Decrease
[2024-06-20 08:44] LABS: #Basophils Less than 0.03 10x3/uL (0.0-0.2); %Basophils 0.5 % (0.0-1.0); %Eosinophils 4.2 % (0.0-10.0); %Lymphocytes 9.9 % (21.0-51.0); %Monocytes 13.9 % (0.0-10.0)
[2024-06-20] MEDS ORDERED: Furosemide 40 MG (4 mL) VIAL SLOW IVP SCH (09:30)
[2024-06-20] MEDS: Rifaximin 200 MG TAB PO SCH (09:32)
[2024-06-20] MEDS: Lactulose 20 GM (30 mL) UDCUP PO SCH ×3 (09:34→19:50)
[2024-06-20] MEDS: Ondansetron PF 4 MG/2 ML Vial IVP PRN (09:53)
[2024-06-20] MEDS: Albumin 25% 25 GM (100 mL) BOT IVPB SCH (09:57)
[2024-06-20] MEDS: Octreotide Acetate 100 MCG/ML VIAL SC SCH ×2 (10:42→17:32)
[2024-06-20 13:26] VITALS: BMI 35.4
[2024-06-20] MEDS ORDERED: Octreotide Acetate 100 MCG/ML VIAL SC SCH (14:00)
[2024-06-20] MEDS: Midodrine HCl 5 MG TAB PO SCH (16:04)
[2024-06-21 08:07] LABS: Hematocrit 22.6 % (42.0-52.0); Hemoglobin 7.3 g/dL (14.0-18.0); Mean Corpuscular HGB CONC 32.3 g/dL (32.0-36.0); Mean Corpuscular Hemoglobin 30.4 pg (27.0-31.0); Mean Corpuscular Volume 94.2 fL (78.0-98.0); Mean Platelet Volume 10.3 fL (7.4-10.4); Platelet Count 31 10x3/uL (130-400); RBC Distribution Width 19.4 % (11.5-14.5)
[2024-06-21 08:13] LABS: INR-International Normal Ratio 1.7; Prothrombin Time 20.1 sec (12.0-14.7)
[2024-06-21 08:23] LABS: ALT (SGPT) 5 U/L (8-55); AST (SGOT) 14 U/L (5-34); Albumin 4.3 g/dL (3.4-4.8); Alkaline Phosphatase 82 U/L (40-110); Anion Gap 16 mmol/L (10-20); BUN (Urea Nitrogen) 48 mg/dL (8.4-25.7); Bilirubin, Total 1.6 mg/dL (0.2-1.2); Calc. Creatinine Clearance 21 mL/min (70-130); Calcium 8.7 mg/dL (7.8-10.44); Carbon Dioxide 15 mmol/L (23-31); Chloride 114 mmol/L (98-107); Estimated GFR 14; Globulin 2.3 g/dL (2.4-3.5); Glucose 131 mg/dL (80-115); Potassium 3.7 mmol/L (3.5-5.1); Protein, Total 6.6 g/dL (5.8-8.1); Sodium 141 mmol/L (136-145)
[2024-06-21 08:34] LABS: Anisocytosis MARKED = >30 cells HPF (0-5); Hypochromia SLIGHT = 6-15 cells HPF (0-5); Macrocytosis MODERATE=16-30 cells HPF (0-5); Ovalocytes SLIGHT = 2-5 cells HPF (0-1); Platelet Adequacy Comment Significant Decrease; Polychromasia MARKED = >4 cells HPF (0-2); Target Cells SLIGHT = 2-5 cells HPF (0-1)
[2024-06-21 08:36] LABS: #Basophils 0.03 10x3/uL (0.0-0.2); %Basophils 0.5 % (0.0-1.0); %Eosinophils 1.9 % (0.0-10.0); %Lymphocytes 5.5 % (21.0-51.0); %Monocytes 13.2 % (0.0-10.0); %Neutrophils 78.5 % (42.0-75.0)
[2024-06-21] MEDS ORDERED: Furosemide 40 MG (4 mL) VIAL SLOW IVP SCH (09:00)
[2024-06-21] MEDS: Lactulose 20 GM (30 mL) UDCUP PO SCH (09:59)
[2024-06-21] MEDS: Albumin 25% 25 GM (100 mL) BOT IVPB SCH (11:48)
[2024-06-21] MEDS: Morphine 2 MG/ML VIAL SLOW IVP PRN (11:50)
[2024-06-21] MEDS: Sodium Bicarb 50 MEQ/50 ML Abboject 8.4% SYRINGE IVP SCH (13:56)
[2024-06-22] MEDS: Acetaminophen 325 MG TAB PO PRN (01:23)
[2024-06-22] MEDS: Melatonin 3 MG TAB PO SCH (01:24)
[2024-06-22 06:02] LABS: #Basophils 0.03 10x3/uL (0.0-0.2); %Basophils 0.6 % (0.0-1.0); %Eosinophils 6.5 % (0.0-10.0); %Lymphocytes 7.3 % (21.0-51.0); %Monocytes 11.5 % (0.0-10.0); %Neutrophils 73.9 % (42.0-75.0); Hematocrit 22.2 % (42.0-52.0); Hemoglobin 7.2 g/dL (14.0-18.0); Mean Corpuscular HGB CONC 32.4 g/dL (32.0-36.0); Mean Corpuscular Hemoglobin 30.1 pg (27.0-31.0); Mean Corpuscular Volume 92.9 fL (78.0-98.0); Platelet Count 43 10x3/uL (130-400); RBC Distribution Width 19.3 % (11.5-14.5); Red Blood Cell (RBC) Count 2.39 mill/uL (4.70-6.10)
[2024-06-22 06:08] LABS: Lactic Acid 1.05 mmol/L (0.5-2.2)
[2024-06-22 06:14] LABS: ALT (SGPT) 5 U/L (8-55); AST (SGOT) 12 U/L (5-34); Albumin 4.5 g/dL (3.4-4.8); Alkaline Phosphatase 73 U/L (40-110); Anion Gap 14 mmol/L (10-20); BUN (Urea Nitrogen) 48 mg/dL (8.4-25.7); Bilirubin, Total 1.7 mg/dL (0.2-1.2); Calc. Creatinine Clearance 21 mL/min (70-130); Calcium 8.9 mg/dL (7.8-10.44); Carbon Dioxide 19 mmol/L (23-31); Chloride 112 mmol/L (98-107); Estimated GFR 14; Glucose 115 mg/dL (80-115); Potassium 3.3 mmol/L (3.5-5.1); Protein, Total 6.5 g/dL (5.8-8.1); Sodium 142 mmol/L (136-145)
[2024-06-22] MEDS: Potassium Chloride 20 MEQ TAB PO SCH (09:06)
[2024-06-22] MEDS: Cefepime 1 GM in Sodium Chloride 0.9% 100 ML IVPB SCH (09:07)
[2024-06-22] MEDS: Sodium Bicarb 50 MEQ/50 ML Abboject 8.4% SYRINGE IVP SCH (11:50)
[2024-06-22] MEDS: EPOETIN ALFA-EPBX (ESRD) 10,000 UNITS/ML VIAL SC SCH (12:10)
[2024-06-22] MEDS ORDERED: Lidocaine 1% PF 5 ML VIAL ONE (12:40)
[2024-06-22] MEDS ORDERED: Sodium Bicarbonate 2.5 MEQ/5 ML SDV ONE (12:41)
[2024-06-23 06:58] LABS: #Basophils 0.03 10x3/uL (0.0-0.2); %Basophils 0.8 % (0.0-1.0); %Eosinophils 8.6 % (0.0-10.0); %Lymphocytes 10.4 % (21.0-51.0); %Monocytes 12.4 % (0.0-10.0); %Neutrophils 67.5 % (42.0-75.0); Hematocrit 23.1 % (42.0-52.0); Hemoglobin 7.5 g/dL (14.0-18.0); Mean Corpuscular HGB CONC 32.5 g/dL (32.0-36.0); Mean Corpuscular Hemoglobin 30.2 pg (27.0-31.0); Mean Corpuscular Volume 93.1 fL (78.0-98.0); Mean Platelet Volume 9.3 fL (7.4-10.4); Platelet Count 41 10x3/uL (130-400); RBC Distribution Width 19.3 % (11.5-14.5); Red Blood Cell (RBC) Count 2.48 mill/uL (4.70-6.10)
[2024-06-23 07:03] LABS: ALT (SGPT) Less than 5 U/L (8-55); AST (SGOT) 13 U/L (5-34); Albumin 4.1 g/dL (3.4-4.8); Alkaline Phosphatase 74 U/L (40-110); Anion Gap 14 mmol/L (10-20); BUN (Urea Nitrogen) 46 mg/dL (8.4-25.7); Bilirubin, Total 1.7 mg/dL (0.2-1.2); Calc. Creatinine Clearance 22 mL/min (70-130); Calcium 8.3 mg/dL (7.8-10.44); Carbon Dioxide 20 mmol/L (23-31); Chloride 109 mmol/L (98-107); Estimated GFR 14; Glucose 121 mg/dL (80-115); Potassium 3.5 mmol/L (3.5-5.1); Protein, Total 6.1 g/dL (5.8-8.1); Sodium 139 mmol/L (136-145)
[2024-06-23 09:26] LABS: INR-International Normal Ratio 1.9; Prothrombin Time 22.1 sec (12.0-14.7)
[2024-06-23 10:06] VITALS: BP 128/73; TEMP 98.6
== END 2024-06-23 10:29 | disposition home or self-care (01) | DRG 441 ==
LOC: ERS 12:04 → SURG B 15:48
PROVIDERS: ADMIT Family Medicine; ATTEND Family Medicine
PROC: 30233J1 Transfusion of Nonautologous Serum Albumin into Peripheral Vein, Percutaneous Approach (ICD-10-PCS; 2024-06-19)
PROC: 0W9G3ZZ Drainage of Peritoneal Cavity, Percutaneous Approach (ICD-10-PCS; principal; 2024-06-22)
DX: K76.82 Hepatic encephalopathy (principal); I50.23 Acute on chronic systolic (congestive) heart failure; I13.0 Hypertensive heart and chronic kidney disease with heart failure and stage 1 through stage 4 chronic kidney disease, or unspecified chronic kidney disease; S12.100A Unspecified displaced fracture of second cervical vertebra, initial encounter for closed fracture; N17.9 Acute kidney failure, unspecified; C22.0 Liver cell carcinoma; D68.9 Coagulation defect, unspecified; L03.116 Cellulitis of left lower limb; L03.115 Cellulitis of right lower limb; E87.20 Acidosis, unspecified; N18.30 Chronic kidney disease, stage 3 unspecified; K75.81 Nonalcoholic steatohepatitis (NASH); K74.60 Unspecified cirrhosis of liver; E11.22 Type 2 diabetes mellitus with diabetic chronic kidney disease; I48.0 Paroxysmal atrial fibrillation; Z79.899 Other long term (current) drug therapy; K21.9 Gastro-esophageal reflux disease without esophagitis; N40.0 Benign prostatic hyperplasia without lower urinary tract symptoms; Z87.891 Personal history of nicotine dependence; D63.1 Anemia in chronic kidney disease; E66.9 Obesity, unspecified; E87.6 Hypokalemia
CPT/HCPCS: 36415; 36416; 49083; 70450; 71045; 72125; 80053; 82140; 83605; 83690; 83880; 84484; 85025; 85610; 85730; 86141; 93005; 93306; 96374; 97139; J0692; J1940; J2272; J2354; J2405; P9047; Q5105

== ENCOUNTER 2024-08-10 12:52 | Day surgery (SDC) | payer MEDICARE ==
[2024-08-10 14:04] LABS: INR-International Normal Ratio 1.2; Prothrombin Time 15.6 sec (12.0-14.7)
[2024-08-10 14:05] LABS: PTT 38.5 sec (22.9-36.1)
[2024-08-10] MEDS ORDERED: Sodium Bicarbonate 2.5 MEQ/5 ML SDV ONE (14:29)
[2024-08-10] MEDS ORDERED: Lidocaine 1% PF 5 ML VIAL ONE (15:14)
[2024-08-10] MEDS ORDERED: Albumin 25% 0 ML ONE (15:20)
== END 2024-08-10 16:10 | disposition home or self-care (01) ==
LOC: ULT 12:52
PROVIDERS: ATTEND Physician Assistant Medical
PROC: 0W9G30Z Drainage of Peritoneal Cavity with Drainage Device, Percutaneous Approach (ICD-10-PCS; principal; 2024-08-10)
DX: K74.60 Unspecified cirrhosis of liver (principal); R18.8 Other ascites; N18.9 Chronic kidney disease, unspecified; K72.90 Hepatic failure, unspecified without coma; C22.0 Liver cell carcinoma; D63.1 Anemia in chronic kidney disease; D50.0 Iron deficiency anemia secondary to blood loss (chronic)
CPT/HCPCS: 49083; 85610; 85730; P9047

== ENCOUNTER → 2024-09-24 | Day surgery (SDC) | payer MEDICARE ==
[~2024-09-24] MED LIST changes: +Albumin 25% 200 ML ONE; -Iopamidol 370 76% 100 ML VIAL ONE; +Lidocaine 1% PF 5 ML VIAL ONE
[2024-09-24 11:58] LABS: #Basophils Less than 0.03 10x3/uL (0.0-0.2); %Basophils 0.7 % (0.0-1.0); %Eosinophils 6.3 % (0.0-10.0); %Lymphocytes 14.3 % (21.0-51.0); %Monocytes 15.7 % (0.0-10.0); %Neutrophils 62.7 % (42.0-75.0); Hematocrit 23.2 % (42.0-52.0); Hemoglobin 7.2 g/dL (14.0-18.0); Mean Corpuscular Hemoglobin 28.6 pg (27.0-31.0); Mean Corpuscular Volume 92.1 fL (78.0-98.0); Platelet Count 45 10x3/uL (130-400); RBC Distribution Width 16.7 % (11.5-14.5); Red Blood Cell (RBC) Count 2.52 mill/uL (4.70-6.10)
[2024-09-24 12:22] LABS: PTT 41.6 sec (22.9-36.1)
[2024-09-24 12:33] LABS: INR-International Normal Ratio 1.4; Prothrombin Time 17.4 sec (12.0-14.7)
== END ==
LOC: ULT 10:13
PROVIDERS: ATTEND Physician Assistant Medical
PROC: 0W9G3ZZ Drainage of Peritoneal Cavity, Percutaneous Approach (ICD-10-PCS; principal; 2024-09-24)
DX: K74.60 Unspecified cirrhosis of liver (principal); R18.8 Other ascites; C22.0 Liver cell carcinoma; N18.9 Chronic kidney disease, unspecified; K72.90 Hepatic failure, unspecified without coma; D50.0 Iron deficiency anemia secondary to blood loss (chronic); D63.1 Anemia in chronic kidney disease
CPT/HCPCS: 49083; 85025; 85610; 85730; P9047